=== PATIENT | female | born 1950 | race Two or more races ===

== ENCOUNTER 2024-03-01 17:27 | Inpatient (IN) ==
--- NOTE | 2024-03-01 17:32 | ED Triage Note ---
Date of Service March 01, 2024 Provider in Triage Author: Cristina Murphy History of Present Illness This patient was briefly evaluated while in triage. An abbreviated physical exam was performed. This patient is a 74-year-old Female who presents to the ED for evaluation of vomiting, unable to keep down food or fluids, reports nausea x few days. Pt denies chest pain, shob, fever, abdominal pain. Currently receiving chemotherapy for leukemia. Physical Exam Initial orders for labs and / or imaging were placed and patient was placed in the waiting area until a bed is available. Please see further documentation for the full ED course.
--- NOTE | 2024-03-01 19:36 | Emergency Department Note ---
Impression & Plan Acute renal failure, Vomiting, Acute dehydration, Acute hyperkalemia ED Provider Note NAME: ANGELIKA REES AGE: 74 SEX: Female INFORMANT: Patient ED PROVIDER(S): Gary Small MD CHIEF COMPLAINT: Vomiting PLAN: Disposition: Admitted Outpatient prescription management: none Referral: None MEDICAL DECISION MAKING: Patient presented due to vomiting for several days. Clinically she looks dehydrated. She had an IV established. Fluids were ordered. She was given IV Zofran she. She required a second dose of IV Zofran. After her fluid bolus she was started on normal saline 125 mL an hour an hour. Patient had CT imaging done and there was no acute process noted. ECG showed a sinus rhythm with LVH. No hyperacute T waves. Her CBC was unremarkable. Her chemistry panel revealed a significant elevation of creatinine, elevation of her potassium, and low bicarb. These labs were rechecked to reconfirm. I was notified that her repeat potassium was 7 and creatinine was over 12. Bicarb very low as well. Patient was given IV calcium, insulin, and glucose. IV bicarbonate given. Consulted with nephrology, Dr. Singh. She recommended initiation of a bicarb drip at 125 mL an hour. This was ordered. She asked for a total CK to be added and this was done. She also asked for the patient to be admitted to the ICU. She recommended every 2 hour chemistry panel and would like to be notified at 6 AM to see the progress of the treatment and assess the need for possible dialysis. I did consult with Bishnu from the ICU. Discussed case and diagnostics. Also discussed nephrology's consultation. Consultation was made with the [facility] service, . Case discussed and diagnostics were reviewed. Patient will be admitted for further management. Care/management discussed with: capacity manager Level of care consideration(s): After review of the information above and other included data, I feel the patient requires escalation of care to admission Triage Nursing notes: reviewed and agree them. Vital Signs: reviewed and remarkable for no significant abnormalities Additional History obtained from: none Chronic Medical/Social Conditions affecting care: Lymphoma Prior/ Outside/ External records reviewed: none Differential Diagnosis: Infection, dehydration, metabolic abnormality, hypo/hyperglycemia, electrolyte disturbance, anemia, hypoxia, cardiac sources, intracerebral event, toxicologic, neurologic, as well as other pathologies. Diagnostics, independently interpreted by me: ECG: Twelve-lead ECG reveals normal sinus rhythm 94 bpm. LVH. No hyperacute T waves. No ST elevation. Cardiac Monitoring: Cardiac monitoring ordered by me: The patient was placed on continuous cardiac monitoring and observed. It revealed a normal sinus rhythm at 96 beats per minute without ectopy or evidence of dysrhythmia. Medical decision rules: none Imaging studies: I refer you to the EMR for further details. HPI: 74 year old Female arrives for evaluation of vomiting. This started 2 to 3 days ago and is persisting. Patient is in between treatments for leukemia. The patient also notes the following associated symptoms, nausea, decreased appetite. The patient has taken no medication for relieving factors. Current pain is rated as 0/10. Patient denies any abdominal pain. She is concerned about dehydration. Pt denies LOC, headache, fevers, chills, diaphoresis, visual changes, neck pain, chest pain, breathing difficulties, abdominal pain, back pain, melena, hematochezia, urinary symptoms, numbness, weakness, lymphadenopathy, rash, or other complaints. . PAST MEDICAL HISTORY: See Below, leukemia PAST SURGICAL HISTORY: See Below, SOCIAL HISTORY: See Below, non-smoker HOME MEDICATIONS: See Below ALLERGIES: See Below VITALS: See Below PHYSICAL EXAMINATION: GENERAL: Awake, alert, well-appearing, in no distress HENT: Normocephalic, atraumatic. Oropharynx with dry mucous. EYES: Normal conjunctiva. Sclera non-icteric. NECK: Inspection normal. Non-tender. Supple. No nuchal rigidity. FROM. No masses. RESPIRATORY: Clear to auscultation. No wheezes. No rales. Normal respiratory effort. CARDIAC: Borderline tachycardic rate. Normal rhythm. No murmurs. No rubs. Extremities warm and well perfused. Pulses equal. No JVD. GI: Soft, non-distended. No tenderness to palpation. No rebound or guarding. No masses. RECTAL: Deferred. MUSCULOSKELETAL: Atraumatic. Chest examination reveals no tenderness. The back is symmetrical on inspection without obvious abnormality. There is no CVA tenderness to palpation. No joint edema. LOWER EXTREMITIES: Calves are equal size bilaterally and non-tender. No edema. No discoloration. NEURO: Normal sensorium. No sensory or motor deficits noted. SKIN: No rash or jaundice noted. PROCEDURES: none CRITICAL CARE: I have personally spent 40 minutes of critical care time in the direct management of this patient. This includes bedside care, interpretation of diagnostic studies, and testing, discussion with consultants, patient, and other required patient management activities. These minutes are in excess of all separately billable procedures. OBSERVATION NOTE: none Past Med/Surg History Medical History Leukemia High blood pressure Breast cancer Esophageal hernia Kidney failure History of fractured vertebra Surgical History H/O shoulder surgery History of left mastectomy Family History (Updated 12/19/23 @ 09:40 by Zacarias Beltran PA-C) Other No pertinent family history Social History Smoking Status: Never smoker Preferred Language: Uzbek current occupational status: retired Feels Safe at Home: Yes Allergies Allergies Allergy/AdvReac Type Severity Reaction Status Date / Time ampicillin Allergy Intermediate Rash Verified 03/01/24 20:08 codeine Allergy Intermediate Rash Verified 03/01/24 20:08 Iodinated Contrast Media Allergy Intermediate ITCHY RASH Verified 03/01/24 20:08 Penicillins Allergy Intermediate SWELLING Verified 03/01/24 20:08 red dye Allergy Intermediate Hives Verified 03/01/24 20:08 Home Meds Home Medications Medication Instructions Recorded Confirmed labetalol 100 mg tablet 100 mg PO BID 09/09/23 03/01/24 amlodipine 10 mg tablet 10 mg PO QAM 12/19/23 03/01/24 cholecalciferol (vitamin D3) 25 25 mcg PO DAILY 03/01/24 03/01/24 mcg (1,000 unit) capsule (Vitamin D3) fluticasone propionate 50 2 spray intranasal DAILY 03/01/24 03/01/24 mcg/actuation nasal spray,suspension loratadine 10 mg tablet (Claritin) 10 mg PO HS 03/01/24 03/01/24 Results & Data (ED) Vital Signs Vital Signs - 24 hr 03/01/24 17:32 03/01/24 19:19 03/01/24 19:20 Temperature 36.9 C Temperature Source Temporal Artery Scan Pulse Rate 93 H 93 H 96 H Pulse Rate [Apical] Pulse Rate from SpO2 Sensor 94 H Respiratory Rate 20 24 16 Respiratory Effort / Characteristics Non-Labored Spontaneous Respiratory Depth Normal Blood Pressure 195/108 H Blood Pressure [Right Arm] Blood Pressure Mean 137 Blood Pressure Mean [Right Arm] Pulse Oximetry 97 98 Oxygen Delivery Method Room Air Sepsis Recent Fever Within 48 Hours No Sepsis New/Unexplained Change in Mental Status N/A Sepsis Action Taken by Nursing No Action Required 03/01/24 19:28 03/01/24 19:30 03/01/24 19:40 Temperature Temperature Source Pulse Rate 93 H 92 H Pulse Rate [Apical] 99 H Pulse Rate from SpO2 Sensor Respiratory Rate 16 16 16 Respiratory Effort / Characteristics Non-Labored Respiratory Depth Normal Blood Pressure Blood Pressure [Right Arm] 166/78 H Blood Pressure Mean Blood Pressure Mean [Right Arm] 107 Pulse Oximetry 98 Oxygen Delivery Method Sepsis Recent Fever Within 48 Hours Sepsis New/Unexplained Change in Mental Status Sepsis Action Taken by Nursing 03/01/24 19:50 03/01/24 20:00 03/01/24 20:00 Temperature Temperature Source Pulse Rate 93 H 92 H Pulse Rate [Apical] Pulse Rate from SpO2 Sensor 90 Respiratory Rate 18 20 Respiratory Effort / Characteristics Respiratory Depth Blood Pressure Blood Pressure [Right Arm] Blood Pressure Mean Blood Pressure Mean [Right Arm] Pulse Oximetry 98 100 Oxygen Delivery Method Room Air Sepsis Recent Fever Within 48 Hours Sepsis New/Unexplained Change in Mental Status Sepsis Action Taken by Nursing 03/01/24 20:10 03/01/24 20:14 03/01/24 20:14 Temperature Temperature Source Pulse Rate 95 H 92 H Pulse Rate [Apical] Pulse Rate from SpO2 Sensor 95 H 93 H Respiratory Rate 17 23 Respiratory Effort / Characteristics Respiratory Depth Blood Pressure 165/78 H Blood Pressure [Right Arm] Blood Pressure Mean 101 Blood Pressure Mean [Right Arm] Pulse Oximetry 94 96 Oxygen Delivery Method Sepsis Recent Fever Within 48 Hours Sepsis New/Unexplained Change in Mental Status Sepsis Action Taken by Nursing 03/01/24 20:20 03/01/24 20:30 03/01/24 20:33 Temperature Temperature Source Pulse Rate 93 H 107 H 94 H Pulse Rate [Apical] Pulse Rate from SpO2 Sensor 94 H 95 H Respiratory Rate 19 22 Respiratory Effort / Characteristics Respiratory Depth Blood Pressure Blood Pressure [Right Arm] Blood Pressure Mean Blood Pressure Mean [Right Arm] Pulse Oximetry 96 97 Oxygen Delivery Method Sepsis Recent Fever Within 48 Hours Sepsis New/Unexplained Change in Mental Status Sepsis Action Taken by Nursing 03/01/24 20:40 03/01/24 20:50 03/01/24 21:00 Temperature Temperature Source Pulse Rate 97 H 98 H 97 H Pulse Rate [Apical] Pulse Rate from SpO2 Sensor 99 H 96 H Respiratory Rate 16 12 17 Respiratory Effort / Characteristics Respiratory Depth Blood Pressure Blood Pressure [Right Arm] Blood Pressure Mean Blood Pressure Mean [Right Arm] Pulse Oximetry 96 96 Oxygen Delivery Method Sepsis Recent Fever Within 48 Hours Sepsis New/Unexplained Change in Mental Status Sepsis Action Taken by Nursing 03/01/24 21:10 03/01/24 21:30 03/01/24 21:40 Temperature Temperature Source Pulse Rate 96 H 109 H 97 H Pulse Rate [Apical] Pulse Rate from SpO2 Sensor 96 H 97 H Respiratory Rate 22 16 16 Respiratory Effort / Characteristics Respiratory Depth Blood Pressure Blood Pressure [Right Arm] Blood Pressure Mean Blood Pressure Mean [Right Arm] Pulse Oximetry 94 99 Oxygen Delivery Method Sepsis Recent Fever Within 48 Hours Sepsis New/Unexplained Change in Mental Status Sepsis Action Taken by Nursing 03/01/24 21:50 03/01/24 22:00 03/01/24 23:20 Temperature Temperature Source Pulse Rate 99 H 100 H 99 H Pulse Rate [Apical] Pulse Rate from SpO2 Sensor 99 H 99 H Respiratory Rate 17 22 Respiratory Effort / Characteristics Respiratory Depth Blood Pressure Blood Pressure [Right Arm] Blood Pressure Mean Blood Pressure Mean [Right Arm] Pulse Oximetry 98 98 Oxygen Delivery Method Sepsis Recent Fever Within 48 Hours Sepsis New/Unexplained Change in Mental Status Sepsis Action Taken by Nursing 03/02/24 00:03 Temperature Temperature Source Pulse Rate Pulse Rate [Apical] 96 H Pulse Rate from SpO2 Sensor Respiratory Rate 26 H Respiratory Effort / Characteristics Respiratory Depth Blood Pressure Blood Pressure [Right Arm] 175/85 H Blood Pressure Mean Blood Pressure Mean [Right Arm] 115 Pulse Oximetry 98 Oxygen Delivery Method Room Air Sepsis Recent Fever Within 48 Hours Sepsis New/Unexplained Change in Mental Status Sepsis Action Taken by Nursing Laboratory Data 03/01/24 21:27 03/01/24 21:27 Lab Results 03/01/24 03/01/24 03/01/24 Range/Units 20:19 21:27 21:27 WBC Cancelled 9.02 RBC Cancelled Hgb Hct MCV MCH MCHC RDW Std Deviation RDW Coeff of Tosha Plt Count MPV Immature Gran % (Auto) Neut % (Auto) Lymph % (Auto) [place] % (Auto) Eos % (Auto) Baso % (Auto) Neut # (Auto) Lymph # (Auto) [place] # (Auto) Eos # (Auto) Baso # (Auto) Immature Gran # (Auto) Absolute Nucleated RBC Nucleated RBC % (auto) Neutrophils % (Manual) Band Neutrophils % Lymphocytes % (Manual) Prolymphocyte % Reactive Lymphs % (Man) Monocytes % (Manual) Eosinophils % (Manual) Basophils % (Manual) Metamyelocytes % (Man) Myelocytes % (Man) Promyelocytes % (Man) Blast Cells % (Manual) Plasma Cell % (Manual) Other Cells % Nucleated RBC % Neutrophils # (Manual) Band Neutrophils # Total Absolute Neuts Lymphocytes # (Manual) Prolymphocyte # Reactive Lymphs # Total Abs Lymphocytes Monocytes # (Manual) Eosinophils # (Manual) Basophils # (Manual) Metamyelocytes # (Man) Myelocytes # (Manual) Promyelocytes # (Man) Blast Cells # (Man) Plasma Cell # (Manual) Other Cells # Nucleated RBCs # (Man) Hypersegmented Neuts Hyposegmented Neuts Hypogranular Neuts Large Granular Lymphs # Lrg Granular Lymphs Hairy Cells Smudge Cells Toxic Granulation Toxic Vacuolation Dohle Bodies Tito Rods Platelet Estimate Hypogranular Platelets Giant Platelets Platelet Satelliting RBC Morphology Polychromasia Hypochromasia Poikilocytosis Basophilic Stippling Anisocytosis Microcytosis Macrocytosis Spherocytes Pappenheimer Bodies Sickle Cells Target Cells Tear Drop Cells Ovalocytes Stomatocytes Campuzano-Selby Bodies Echinocytes Acanthocytes (Spur) Rouleaux RBC Agglutinates Schistocytes Sezary Cell Sodium (136-145) mmol/L Potassium (3.5-5.1) mmol/L Chloride (98-107) mmol/L Carbon Dioxide (21-32) mmol/L Anion Gap (3-11) BUN (6-23) mg/dl Creatinine (0.6-1.2) mg/dl Est Cr Clr Drug Dosing ml/min Est GFR ( Amer) ml/min Est GFR (Non-Af Amer) ml/min BUN/Creatinine Ratio (10-20) Glucose (70-99(Fasting)) mg/dl Lactate (0.4-2.0) mmol/L Calcium (8.6-10.3) mg/dl Total Bilirubin (0.2-1.0) mg/dl AST (13-39) U/L ALT (7-52) U/L Alkaline Phosphatase (34-104) U/L Troponin I High Sens (0-14) pg/ml Total Protein (6.0-8.3) gm/dl Albumin (3.4-5.0) gm/dl Globulin (2.5-4.0) gm/dl Albumin/Globulin Ratio (0.9-2) Lipase (11-82) U/L Blood Parasites ID 03/01/24 03/01/24 03/01/24 Range/Units 21:27 21:27 21:27 WBC RBC 4.13 L Hgb Cancelled 9.8 L Hct Cancelled 33.8 L MCV Cancelled MCH MCHC RDW Std Deviation RDW Coeff of Tosha Plt Count MPV Immature Gran % (Auto) Neut % (Auto) Lymph % (Auto) [place] % (Auto) Eos % (Auto) Baso % (Auto) Neut # (Auto) Lymph # (Auto) [place] # (Auto) Eos # (Auto) Baso # (Auto) Immature Gran # (Auto) Absolute Nucleated RBC Nucleated RBC % (auto) Neutrophils % (Manual) Band Neutrophils % Lymphocytes % (Manual) Prolymphocyte % Reactive Lymphs % (Man) Monocytes % (Manual) Eosinophils % (Manual) Basophils % (Manual) Metamyelocytes % (Man) Myelocytes % (Man) Promyelocytes % (Man) Blast Cells % (Manual) Plasma Cell % (Manual) Other Cells % Nucleated RBC % Neutrophils # (Manual) Band Neutrophils # Total Absolute Neuts Lymphocytes # (Manual) Prolymphocyte # Reactive Lymphs # Total Abs Lymphocytes Monocytes # (Manual) Eosinophils # (Manual) Basophils # (Manual) Metamyelocytes # (Man) Myelocytes # (Manual) Promyelocytes # (Man) Blast Cells # (Man) Plasma Cell # (Manual) Other Cells # Nucleated RBCs # (Man) Hypersegmented Neuts Hyposegmented Neuts Hypogranular Neuts Large Granular Lymphs # Lrg Granular Lymphs Hairy Cells Smudge Cells Toxic Granulation Toxic Vacuolation Dohle Bodies Tito Rods Platelet Estimate Hypogranular Platelets Giant Platelets Platelet Satelliting RBC Morphology Polychromasia Hypochromasia Poikilocytosis Basophilic Stippling Anisocytosis Microcytosis Macrocytosis Spherocytes Pappenheimer Bodies Sickle Cells Target Cells Tear Drop Cells Ovalocytes Stomatocytes Campuzano-Selby Bodies Echinocytes Acanthocytes (Spur) Rouleaux RBC Agglutinates Schistocytes Sezary Cell Sodium (136-145) mmol/L Potassium (3.5-5.1) mmol/L Chloride (98-107) mmol/L Carbon Dioxide (21-32) mmol/L Anion Gap (3-11) BUN (6-23) mg/dl Creatinine (0.6-1.2) mg/dl Est Cr Clr Drug Dosing ml/min Est GFR ( Amer) ml/min Est GFR (Non-Af Amer) ml/min BUN/Creatinine Ratio (10-20) Glucose (70-99(Fasting)) mg/dl Lactate (0.4-2.0) mmol/L Calcium (8.6-10.3) mg/dl Total Bilirubin (0.2-1.0) mg/dl AST (13-39) U/L ALT (7-52) U/L Alkaline Phosphatase (34-104) U/L Troponin I High Sens (0-14) pg/ml Total Protein (6.0-8.3) gm/dl Albumin (3.4-5.0) gm/dl Globulin (2.5-4.0) gm/dl Albumin/Globulin Ratio (0.9-2) Lipase (11-82) U/L Blood Parasites ID 03/01/24 03/01/24 03/01/24 Range/Units 21:27 21:27 21:27 WBC RBC Hgb Hct MCV 81.8 MCH Cancelled 23.7 L MCHC Cancelled 29.0 L RDW Std Deviation Cancelled RDW Coeff of Tosha Plt Count MPV Immature Gran % (Auto) Neut % (Auto) Lymph % (Auto) [place] % (Auto) Eos % (Auto) Baso % (Auto) Neut # (Auto) Lymph # (Auto) [place] # (Auto) Eos # (Auto) Baso # (Auto) Immature Gran # (Auto) Absolute Nucleated RBC Nucleated RBC % (auto) Neutrophils % (Manual) Band Neutrophils % Lymphocytes % (Manual) Prolymphocyte % Reactive Lymphs % (Man) Monocytes % (Manual) Eosinophils % (Manual) Basophils % (Manual) Metamyelocytes % (Man) Myelocytes % (Man) Promyelocytes % (Man) Blast Cells % (Manual) Plasma Cell % (Manual) Other Cells % Nucleated RBC % Neutrophils # (Manual) Band Neutrophils # Total Absolute Neuts Lymphocytes # (Manual) Prolymphocyte # Reactive Lymphs # Total Abs Lymphocytes Monocytes # (Manual) Eosinophils # (Manual) Basophils # (Manual) Metamyelocytes # (Man) Myelocytes # (Manual) Promyelocytes # (Man) Blast Cells # (Man) Plasma Cell # (Manual) Other Cells # Nucleated RBCs # (Man) Hypersegmented Neuts Hyposegmented Neuts Hypogranular Neuts Large Granular Lymphs # Lrg Granular Lymphs Hairy Cells Smudge Cells Toxic Granulation Toxic Vacuolation Dohle Bodies Tito Rods Platelet Estimate Hypogranular Platelets Giant Platelets Platelet Satelliting RBC Morphology Polychromasia Hypochromasia Poikilocytosis Basophilic Stippling Anisocytosis Microcytosis Macrocytosis Spherocytes Pappenheimer Bodies Sickle Cells Target Cells Tear Drop Cells Ovalocytes Stomatocytes Campuzano-Selby Bodies Echinocytes Acanthocytes (Spur) Rouleaux RBC Agglutinates Schistocytes Sezary Cell Sodium (136-145) mmol/L Potassium (3.5-5.1) mmol/L Chloride (98-107) mmol/L Carbon Dioxide (21-32) mmol/L Anion Gap (3-11) BUN (6-23) mg/dl Creatinine (0.6-1.2) mg/dl Est Cr Clr Drug Dosing ml/min Est GFR ( Amer) ml/min Est GFR (Non-Af Amer) ml/min BUN/Creatinine Ratio (10-20) Glucose (70-99(Fasting)) mg/dl Lactate (0.4-2.0) mmol/L Calcium (8.6-10.3) mg/dl Total Bilirubin (0.2-1.0) mg/dl AST (13-39) U/L ALT (7-52) U/L Alkaline Phosphatase (34-104) U/L Troponin I High Sens (0-14) pg/ml Total Protein (6.0-8.3) gm/dl Albumin (3.4-5.0) gm/dl Globulin (2.5-4.0) gm/dl Albumin/Globulin Ratio (0.9-2) Lipase (11-82) U/L Blood Parasites ID 03/01/24 03/01/24 03/01/24 Range/Units 21:27 21:27 21:27 WBC RBC Hgb Hct MCV MCH MCHC RDW Std Deviation 70.2 H RDW Coeff of Tosha Cancelled 24.0 H Plt Count Cancelled 193 MPV Cancelled Immature Gran % (Auto) Cancelled Neut % (Auto) Lymph % (Auto) [place] % (Auto) Eos % (Auto) Baso % (Auto) Neut # (Auto) Lymph # (Auto) [place] # (Auto) Eos # (Auto) Baso # (Auto) Immature Gran # (Auto) Absolute Nucleated RBC Nucleated RBC % (auto) Neutrophils % (Manual) Band Neutrophils % Lymphocytes % (Manual) Prolymphocyte % Reactive Lymphs % (Man) Monocytes % (Manual) Eosinophils % (Manual) Basophils % (Manual) Metamyelocytes % (Man) Myelocytes % (Man) Promyelocytes % (Man) Blast Cells % (Manual) Plasma Cell % (Manual) Other Cells % Nucleated RBC % Neutrophils # (Manual) Band Neutrophils # Total Absolute Neuts Lymphocytes # (Manual) Prolymphocyte # Reactive Lymphs # Total Abs Lymphocytes Monocytes # (Manual) Eosinophils # (Manual) Basophils # (Manual) Metamyelocytes # (Man) Myelocytes # (Manual) Promyelocytes # (Man) Blast Cells # (Man) Plasma Cell # (Manual) Other Cells # Nucleated RBCs # (Man) Hypersegmented Neuts Hyposegmented Neuts Hypogranular Neuts Large Granular Lymphs # Lrg Granular Lymphs Hairy Cells Smudge Cells Toxic Granulation Toxic Vacuolation Dohle Bodies Tito Rods Platelet Estimate Hypogranular Platelets Giant Platelets Platelet Satelliting RBC Morphology Polychromasia Hypochromasia Poikilocytosis Basophilic Stippling Anisocytosis Microcytosis Macrocytosis Spherocytes Pappenheimer Bodies Sickle Cells Target Cells Tear Drop Cells Ovalocytes Stomatocytes Campuzano-Selby Bodies Echinocytes Acanthocytes (Spur) Rouleaux RBC Agglutinates Schistocytes Sezary Cell Sodium (136-145) mmol/L Potassium (3.5-5.1) mmol/L Chloride (98-107) mmol/L Carbon Dioxide (21-32) mmol/L Anion Gap (3-11) BUN (6-23) mg/dl Creatinine (0.6-1.2) mg/dl Est Cr Clr Drug Dosing ml/min Est GFR ( Amer) ml/min Est GFR (Non-Af Amer) ml/min BUN/Creatinine Ratio (10-20) Glucose (70-99(Fasting)) mg/dl Lactate (0.4-2.0) mmol/L Calcium (8.6-10.3) mg/dl Total Bilirubin (0.2-1.0) mg/dl AST (13-39) U/L ALT (7-52) U/L Alkaline Phosphatase (34-104) U/L Troponin I High Sens (0-14) pg/ml Total Protein (6.0-8.3) gm/dl Albumin (3.4-5.0) gm/dl Globulin (2.5-4.0) gm/dl Albumin/Globulin Ratio (0.9-2) Lipase (11-82) U/L Blood Parasites ID 03/01/24 03/01/24 03/01/24 Range/Units 21:27 21:27 21:27 WBC RBC Hgb Hct MCV MCH MCHC RDW Std Deviation RDW Coeff of Tosha Plt Count MPV Immature Gran % (Auto) 4.7 Neut % (Auto) Cancelled 69.5 Lymph % (Auto) Cancelled 11.5 [place] % (Auto) Cancelled Eos % (Auto) Baso % (Auto) Neut # (Auto) Lymph # (Auto) [place] # (Auto) Eos # (Auto) Baso # (Auto) Immature Gran # (Auto) Absolute Nucleated RBC Nucleated RBC % (auto) Neutrophils % (Manual) Band Neutrophils % Lymphocytes % (Manual) Prolymphocyte % Reactive Lymphs % (Man) Monocytes % (Manual) Eosinophils % (Manual) Basophils % (Manual) Metamyelocytes % (Man) Myelocytes % (Man) Promyelocytes % (Man) Blast Cells % (Manual) Plasma Cell % (Manual) Other Cells % Nucleated RBC % Neutrophils # (Manual) Band Neutrophils # Total Absolute Neuts Lymphocytes # (Manual) Prolymphocyte # Reactive Lymphs # Total Abs Lymphocytes Monocytes # (Manual) Eosinophils # (Manual) Basophils # (Manual) Metamyelocytes # (Man) Myelocytes # (Manual) Promyelocytes # (Man) Blast Cells # (Man) Plasma Cell # (Manual) Other Cells # Nucleated RBCs # (Man) Hypersegmented Neuts Hyposegmented Neuts Hypogranular Neuts Large Granular Lymphs # Lrg Granular Lymphs Hairy Cells Smudge Cells Toxic Granulation Toxic Vacuolation Dohle Bodies Tito Rods Platelet Estimate Hypogranular Platelets Giant Platelets Platelet Satelliting RBC Morphology Polychromasia Hypochromasia Poikilocytosis Basophilic Stippling Anisocytosis Microcytosis Macrocytosis Spherocytes Pappenheimer Bodies Sickle Cells Target Cells Tear Drop Cells Ovalocytes Stomatocytes Campuzano-Selby Bodies Echinocytes Acanthocytes (Spur) Rouleaux RBC Agglutinates Schistocytes Sezary Cell Sodium (136-145) mmol/L Potassium (3.5-5.1) mmol/L Chloride (98-107) mmol/L Carbon Dioxide (21-32) mmol/L Anion Gap (3-11) BUN (6-23) mg/dl Creatinine (0.6-1.2) mg/dl Est Cr Clr Drug Dosing ml/min Est GFR ( Amer) ml/min Est GFR (Non-Af Amer) ml/min BUN/Creatinine Ratio (10-20) Glucose (70-99(Fasting)) mg/dl Lactate (0.4-2.0) mmol/L Calcium (8.6-10.3) mg/dl Total Bilirubin (0.2-1.0) mg/dl AST (13-39) U/L ALT (7-52) U/L Alkaline Phosphatase (34-104) U/L Troponin I High Sens (0-14) pg/ml Total Protein (6.0-8.3) gm/dl Albumin (3.4-5.0) gm/dl Globulin (2.5-4.0) gm/dl Albumin/Globulin Ratio (0.9-2) Lipase (11-82) U/L Blood Parasites ID 03/01/24 03/01/24 03/01/24 Range/Units 21:27 21:27 21:27 WBC RBC Hgb Hct MCV MCH MCHC RDW Std Deviation RDW Coeff of Tosha Plt Count MPV Immature Gran % (Auto) Neut % (Auto) Lymph % (Auto) [place] % (Auto) 13.1 Eos % (Auto) Cancelled 0.6 Baso % (Auto) Cancelled 0.6 Neut # (Auto) Cancelled Lymph # (Auto) [place] # (Auto) Eos # (Auto) Baso # (Auto) Immature Gran # (Auto) Absolute Nucleated RBC Nucleated RBC % (auto) Neutrophils % (Manual) Band Neutrophils % Lymphocytes % (Manual) Prolymphocyte % Reactive Lymphs % (Man) Monocytes % (Manual) Eosinophils % (Manual) Basophils % (Manual) Metamyelocytes % (Man) Myelocytes % (Man) Promyelocytes % (Man) Blast Cells % (Manual) Plasma Cell % (Manual) Other Cells % Nucleated RBC % Neutrophils # (Manual) Band Neutrophils # Total Absolute Neuts Lymphocytes # (Manual) Prolymphocyte # Reactive Lymphs # Total Abs Lymphocytes Monocytes # (Manual) Eosinophils # (Manual) Basophils # (Manual) Metamyelocytes # (Man) Myelocytes # (Manual) Promyelocytes # (Man) Blast Cells # (Man) Plasma Cell # (Manual) Other Cells # Nucleated RBCs # (Man) Hypersegmented Neuts Hyposegmented Neuts Hypogranular Neuts Large Granular Lymphs # Lrg Granular Lymphs Hairy Cells Smudge Cells Toxic Granulation Toxic Vacuolation Dohle Bodies Tito Rods Platelet Estimate Hypogranular Platelets Giant Platelets Platelet Satelliting RBC Morphology Polychromasia Hypochromasia Poikilocytosis Basophilic Stippling Anisocytosis Microcytosis Macrocytosis Spherocytes Pappenheimer Bodies Sickle Cells Target Cells Tear Drop Cells Ovalocytes Stomatocytes Campuzano-Selby Bodies Echinocytes Acanthocytes (Spur) Rouleaux RBC Agglutinates Schistocytes Sezary Cell Sodium (136-145) mmol/L Potassium (3.5-5.1) mmol/L Chloride (98-107) mmol/L Carbon Dioxide (21-32) mmol/L Anion Gap (3-11) BUN (6-23) mg/dl Creatinine (0.6-1.2) mg/dl Est Cr Clr Drug Dosing ml/min Est GFR ( Amer) ml/min Est GFR (Non-Af Amer) ml/min BUN/Creatinine Ratio (10-20) Glucose (70-99(Fasting)) mg/dl Lactate (0.4-2.0) mmol/L Calcium (8.6-10.3) mg/dl Total Bilirubin (0.2-1.0) mg/dl AST (13-39) U/L ALT (7-52) U/L Alkaline Phosphatase (34-104) U/L Troponin I High Sens (0-14) pg/ml Total Protein (6.0-8.3) gm/dl Albumin (3.4-5.0) gm/dl Globulin (2.5-4.0) gm/dl Albumin/Globulin Ratio (0.9-2) Lipase (11-82) U/L Blood Parasites ID 03/01/24 03/01/24 03/01/24 Range/Units 21:27 21:27 21:27 WBC RBC Hgb Hct MCV MCH MCHC RDW Std Deviation RDW Coeff of Tosha Plt Count MPV Immature Gran % (Auto) Neut % (Auto) Lymph % (Auto) [place] % (Auto) Eos % (Auto) Baso % (Auto) Neut # (Auto) 6.28 Lymph # (Auto) Cancelled 1.04 L [place] # (Auto) Cancelled 1.18 H Eos # (Auto) Cancelled Baso # (Auto) Immature Gran # (Auto) Absolute Nucleated RBC Nucleated RBC % (auto) Neutrophils % (Manual) Band Neutrophils % Lymphocytes % (Manual) Prolymphocyte % Reactive Lymphs % (Man) Monocytes % (Manual) Eosinophils % (Manual) Basophils % (Manual) Metamyelocytes % (Man) Myelocytes % (Man) Promyelocytes % (Man) Blast Cells % (Manual) Plasma Cell % (Manual) Other Cells % Nucleated RBC % Neutrophils # (Manual) Band Neutrophils # Total Absolute Neuts Lymphocytes # (Manual) Prolymphocyte # Reactive Lymphs # Total Abs Lymphocytes Monocytes # (Manual) Eosinophils # (Manual) Basophils # (Manual) Metamyelocytes # (Man) Myelocytes # (Manual) Promyelocytes # (Man) Blast Cells # (Man) Plasma Cell # (Manual) Other Cells # Nucleated RBCs # (Man) Hypersegmented Neuts Hyposegmented Neuts Hypogranular Neuts Large Granular Lymphs # Lrg Granular Lymphs Hairy Cells Smudge Cells Toxic Granulation Toxic Vacuolation Dohle Bodies Tito Rods Platelet Estimate Hypogranular Platelets Giant Platelets Platelet Satelliting RBC Morphology Polychromasia Hypochromasia Poikilocytosis Basophilic Stippling Anisocytosis Microcytosis Macrocytosis Spherocytes Pappenheimer Bodies Sickle Cells Target Cells Tear Drop Cells Ovalocytes Stomatocytes Campuzano-Selby Bodies Echinocytes Acanthocytes (Spur) Rouleaux RBC Agglutinates Schistocytes Sezary Cell Sodium (136-145) mmol/L Potassium (3.5-5.1) mmol/L Chloride (98-107) mmol/L Carbon Dioxide (21-32) mmol/L Anion Gap (3-11) BUN (6-23) mg/dl Creatinine (0.6-1.2) mg/dl Est Cr Clr Drug Dosing ml/min Est GFR ( Amer) ml/min Est GFR (Non-Af Amer) ml/min BUN/Creatinine Ratio (10-20) Glucose (70-99(Fasting)) mg/dl Lactate (0.4-2.0) mmol/L Calcium (8.6-10.3) mg/dl Total Bilirubin (0.2-1.0) mg/dl AST (13-39) U/L ALT (7-52) U/L Alkaline Phosphatase (34-104) U/L Troponin I High Sens (0-14) pg/ml Total Protein (6.0-8.3) gm/dl Albumin (3.4-5.0) gm/dl Globulin (2.5-4.0) gm/dl Albumin/Globulin Ratio (0.9-2) Lipase (11-82) U/L Blood Parasites ID 03/01/24 03/01/24 03/01/24 Range/Units 21:27 21:27 21:27 WBC RBC Hgb Hct MCV MCH MCHC RDW Std Deviation RDW Coeff of Tosha Plt Count MPV Immature Gran % (Auto) Neut % (Auto) Lymph % (Auto) [place] % (Auto) Eos % (Auto) Baso % (Auto) Neut # (Auto) Lymph # (Auto) [place] # (Auto) Eos # (Auto) 0.05 Baso # (Auto) Cancelled 0.05 Immature Gran # (Auto) Cancelled 0.42 H Absolute Nucleated RBC Cancelled Nucleated RBC % (auto) Neutrophils % (Manual) Band Neutrophils % Lymphocytes % (Manual) Prolymphocyte % Reactive Lymphs % (Man) Monocytes % (Manual) Eosinophils % (Manual) Basophils % (Manual) Metamyelocytes % (Man) Myelocytes % (Man) Promyelocytes % (Man) Blast Cells % (Manual) Plasma Cell % (Manual) Other Cells % Nucleated RBC % Neutrophils # (Manual) Band Neutrophils # Total Absolute Neuts Lymphocytes # (Manual) Prolymphocyte # Reactive Lymphs # Total Abs Lymphocytes Monocytes # (Manual) Eosinophils # (Manual) Basophils # (Manual) Metamyelocytes # (Man) Myelocytes # (Manual) Promyelocytes # (Man) Blast Cells # (Man) Plasma Cell # (Manual) Other Cells # Nucleated RBCs # (Man) Hypersegmented Neuts Hyposegmented Neuts Hypogranular Neuts Large Granular Lymphs # Lrg Granular Lymphs Hairy Cells Smudge Cells Toxic Granulation Toxic Vacuolation Dohle Bodies Tito Rods Platelet Estimate Hypogranular Platelets Giant Platelets Platelet Satelliting RBC Morphology Polychromasia Hypochromasia Poikilocytosis Basophilic Stippling Anisocytosis Microcytosis Macrocytosis Spherocytes Pappenheimer Bodies Sickle Cells Target Cells Tear Drop Cells Ovalocytes Stomatocytes Campuzano-Selby Bodies Echinocytes Acanthocytes (Spur) Rouleaux RBC Agglutinates Schistocytes Sezary Cell Sodium (136-145) mmol/L Potassium (3.5-5.1) mmol/L Chloride (98-107) mmol/L Carbon Dioxide (21-32) mmol/L Anion Gap (3-11) BUN (6-23) mg/dl Creatinine (0.6-1.2) mg/dl Est Cr Clr Drug Dosing ml/min Est GFR ( Amer) ml/min Est GFR (Non-Af Amer) ml/min BUN/Creatinine Ratio (10-20) Glucose (70-99(Fasting)) mg/dl Lactate (0.4-2.0) mmol/L Calcium (8.6-10.3) mg/dl Total Bilirubin (0.2-1.0) mg/dl AST (13-39) U/L ALT (7-52) U/L Alkaline Phosphatase (34-104) U/L Troponin I High Sens (0-14) pg/ml Total Protein (6.0-8.3) gm/dl Albumin (3.4-5.0) gm/dl Globulin (2.5-4.0) gm/dl Albumin/Globulin Ratio (0.9-2) Lipase (11-82) U/L Blood Parasites ID 03/01/24 03/01/24 03/01/24 Range/Units 21:27 21:27 21:27 WBC RBC Hgb Hct MCV MCH MCHC RDW Std Deviation RDW Coeff of Tosha Plt Count MPV Immature Gran % (Auto) Neut % (Auto) Lymph % (Auto) [place] % (Auto) Eos % (Auto) Baso % (Auto) Neut # (Auto) Lymph # (Auto) [place] # (Auto) Eos # (Auto) Baso # (Auto) Immature Gran # (Auto) Absolute Nucleated RBC 0.03 Nucleated RBC % (auto) Cancelled 0.3 Neutrophils % (Manual) Cancelled Band Neutrophils % Cancelled Lymphocytes % (Manual) Cancelled Prolymphocyte % Cancelled Reactive Lymphs % (Man) Cancelled Monocytes % (Manual) Cancelled Eosinophils % (Manual) Cancelled Basophils % (Manual) Cancelled Metamyelocytes % (Man) Cancelled Myelocytes % (Man) Cancelled Promyelocytes % (Man) Cancelled Blast Cells % (Manual) Cancelled Plasma Cell % (Manual) Cancelled Other Cells % Cancelled Nucleated RBC % Cancelled Neutrophils # (Manual) Cancelled Band Neutrophils # Cancelled Total Absolute Neuts Cancelled Lymphocytes # (Manual) Cancelled Prolymphocyte # Cancelled Reactive Lymphs # Cancelled Total Abs Lymphocytes Cancelled Monocytes # (Manual) Cancelled Eosinophils # (Manual) Cancelled Basophils # (Manual) Cancelled Metamyelocytes # (Man) Cancelled Myelocytes # (Manual) Cancelled Promyelocytes # (Man) Cancelled Blast Cells # (Man) Cancelled Plasma Cell # (Manual) Cancelled Other Cells # Cancelled Nucleated RBCs # (Man) Cancelled Hypersegmented Neuts Cancelled Hyposegmented Neuts Cancelled Hypogranular Neuts Cancelled Large Granular Lymphs Cancelled # Lrg Granular Lymphs Cancelled Hairy Cells Cancelled Smudge Cells Cancelled Toxic Granulation Cancelled Toxic Vacuolation Cancelled Dohle Bodies Cancelled Tito Rods Cancelled Platelet Estimate Cancelled Hypogranular Platelets Cancelled Giant Platelets Cancelled Platelet Satelliting Cancelled RBC Morphology Cancelled Polychromasia Cancelled Hypochromasia Cancelled Poikilocytosis Cancelled Basophilic Stippling Cancelled Anisocytosis Cancelled Present Microcytosis Cancelled Macrocytosis Cancelled Spherocytes Cancelled Pappenheimer Bodies Cancelled Sickle Cells Cancelled Target Cells Cancelled Tear Drop Cells Cancelled Ovalocytes Stomatocytes Campuzano-Selby Bodies Echinocytes Acanthocytes (Spur) Rouleaux RBC Agglutinates Schistocytes Sezary Cell Sodium (136-145) mmol/L Potassium (3.5-5.1) mmol/L Chloride (98-107) mmol/L Carbon Dioxide (21-32) mmol/L Anion Gap (3-11) BUN (6-23) mg/dl Creatinine (0.6-1.2) mg/dl Est Cr Clr Drug Dosing ml/min Est GFR ( Amer) ml/min Est GFR (Non-Af Amer) ml/min BUN/Creatinine Ratio (10-20) Glucose (70-99(Fasting)) mg/dl Lactate (0.4-2.0) mmol/L Calcium (8.6-10.3) mg/dl Total Bilirubin (0.2-1.0) mg/dl AST (13-39) U/L ALT (7-52) U/L Alkaline Phosphatase (34-104) U/L Troponin I High Sens (0-14) pg/ml Total Protein (6.0-8.3) gm/dl Albumin (3.4-5.0) gm/dl Globulin (2.5-4.0) gm/dl Albumin/Globulin Ratio (0.9-2) Lipase (11-82) U/L Blood Parasites ID 03/01/24 03/01/24 03/01/24 Range/Units 21:27 21:27 21:27 WBC RBC Hgb Hct MCV MCH MCHC RDW Std Deviation RDW Coeff of Tosha Plt Count MPV Immature Gran % (Auto) Neut % (Auto) Lymph % (Auto) [place] % (Auto) Eos % (Auto) Baso % (Auto) Neut # (Auto) Lymph # (Auto) [place] # (Auto) Eos # (Auto) Baso # (Auto) Immature Gran # (Auto) Absolute Nucleated RBC Nucleated RBC % (auto) Neutrophils % (Manual) Band Neutrophils % Lymphocytes % (Manual) Prolymphocyte % Reactive Lymphs % (Man) Monocytes % (Manual) Eosinophils % (Manual) Basophils % (Manual) Metamyelocytes % (Man) Myelocytes % (Man) Promyelocytes % (Man) Blast Cells % (Manual) Plasma Cell % (Manual) Other Cells % Nucleated RBC % Neutrophils # (Manual) Band Neutrophils # Total Absolute Neuts Lymphocytes # (Manual) Prolymphocyte # Reactive Lymphs # Total Abs Lymphocytes Monocytes # (Manual) Eosinophils # (Manual) Basophils # (Manual) Metamyelocytes # (Man) Myelocytes # (Manual) Promyelocytes # (Man) Blast Cells # (Man) Plasma Cell # (Manual) Other Cells # Nucleated RBCs # (Man) Hypersegmented Neuts Hyposegmented Neuts Hypogranular Neuts Large Granular Lymphs # Lrg Granular Lymphs Hairy Cells Smudge Cells Toxic Granulation Toxic Vacuolation Dohle Bodies Tito Rods Platelet Estimate Hypogranular Platelets Giant Platelets Platelet Satelliting RBC Morphology Polychromasia Hypochromasia Poikilocytosis Basophilic Stippling Anisocytosis Microcytosis Macrocytosis Spherocytes Pappenheimer Bodies Sickle Cells Target Cells Tear Drop Cells 1+ Ovalocytes Cancelled 1+ Stomatocytes Cancelled Campuzano-Selby Bodies Cancelled Echinocytes Cancelled 1+ Acanthocytes (Spur) Cancelled Rouleaux RBC Agglutinates Schistocytes Sezary Cell Sodium (136-145) mmol/L Potassium (3.5-5.1) mmol/L Chloride (98-107) mmol/L Carbon Dioxide (21-32) mmol/L Anion Gap (3-11) BUN (6-23) mg/dl Creatinine (0.6-1.2) mg/dl Est Cr Clr Drug Dosing ml/min Est GFR ( Amer) ml/min Est GFR (Non-Af Amer) ml/min BUN/Creatinine Ratio (10-20) Glucose (70-99(Fasting)) mg/dl Lactate (0.4-2.0) mmol/L Calcium (8.6-10.3) mg/dl Total Bilirubin (0.2-1.0) mg/dl AST (13-39) U/L ALT (7-52) U/L Alkaline Phosphatase (34-104) U/L Troponin I High Sens (0-14) pg/ml Total Protein (6.0-8.3) gm/dl Albumin (3.4-5.0) gm/dl Globulin (2.5-4.0) gm/dl Albumin/Globulin Ratio (0.9-2) Lipase (11-82) U/L Blood Parasites ID 03/01/24 Range/Units 21:27 WBC RBC Hgb Hct MCV MCH MCHC RDW Std Deviation RDW Coeff of Tosha Plt Count MPV Immature Gran % (Auto) Neut % (Auto) Lymph % (Auto) [place] % (Auto) Eos % (Auto) Baso % (Auto) Neut # (Auto) Lymph # (Auto) [place] # (Auto) Eos # (Auto) Baso # (Auto) Immature Gran # (Auto) Absolute Nucleated RBC Nucleated RBC % (auto) Neutrophils % (Manual) Band Neutrophils % Lymphocytes % (Manual) Prolymphocyte % Reactive Lymphs % (Man) Monocytes % (Manual) Eosinophils % (Manual) Basophils % (Manual) Metamyelocytes % (Man) Myelocytes % (Man) Promyelocytes % (Man) Blast Cells % (Manual) Plasma Cell % (Manual) Other Cells % Nucleated RBC % Neutrophils # (Manual) Band Neutrophils # Total Absolute Neuts Lymphocytes # (Manual) Prolymphocyte # Reactive Lymphs # Total Abs Lymphocytes Monocytes # (Manual) Eosinophils # (Manual) Basophils # (Manual) Metamyelocytes # (Man) Myelocytes # (Manual) Promyelocytes # (Man) Blast Cells # (Man) Plasma Cell # (Manual) Other Cells # Nucleated RBCs # (Man) Hypersegmented Neuts Hyposegmented Neuts Hypogranular Neuts Large Granular Lymphs # Lrg Granular Lymphs Hairy Cells Smudge Cells Toxic Granulation Toxic Vacuolation Dohle Bodies Tito Rods Platelet Estimate Hypogranular Platelets Giant Platelets Platelet Satelliting RBC Morphology Polychromasia Hypochromasia Poikilocytosis Basophilic Stippling Anisocytosis Microcytosis Macrocytosis Spherocytes Pappenheimer Bodies Sickle Cells Target Cells Tear Drop Cells Ovalocytes Stomatocytes Campuzano-Selby Bodies Echinocytes Acanthocytes (Spur) 2+ Rouleaux Cancelled RBC Agglutinates Cancelled Schistocytes Cancelled Sezary Cell Cancelled Sodium 136 (136-145) mmol/L Potassium 6.3 H* (3.5-5.1) mmol/L Chloride 110 H (98-107) mmol/L Carbon Dioxide 7 L* (21-32) mmol/L Anion Gap 19 H (3-11) BUN 161 H (6-23) mg/dl Creatinine 12.33 H* (0.6-1.2) mg/dl Est Cr Clr Drug Dosing 3.3 ml/min Est GFR ( Amer) 3.1 ml/min Est GFR (Non-Af Amer) 2.7 ml/min BUN/Creatinine Ratio 13.1 (10-20) Glucose 104 H (70-99(Fasting)) mg/dl Lactate 0.6 (0.4-2.0) mmol/L Calcium 5.9 L* (8.6-10.3) mg/dl Total Bilirubin 0.3 (0.2-1.0) mg/dl AST 8 L (13-39) U/L ALT 7 (7-52) U/L Alkaline Phosphatase 60 (34-104) U/L Troponin I High Sens 35.9 H (0-14) pg/ml Total Protein 6.4 (6.0-8.3) gm/dl Albumin 3.8 (3.4-5.0) gm/dl Globulin 2.6 (2.5-4.0) gm/dl Albumin/Globulin Ratio 1.5 (0.9-2) Lipase 490 H (11-82) U/L Blood Parasites ID Cancelled Administered Medications Discontinued Medications Dextrose (Dextrose 50% 50 Ml Syringe) 50 ml IV NOW ONE Stop: 03/02/24 00:31 Last Admin: 03/02/24 00:51 Dose: 50 ml Documented By: HERACLIO Sodium Chloride (Nss) 500 mls @ 999 mls/hr IV .Q31M STA Stop: 03/01/24 18:03 Last Infusion: 03/01/24 20:54 Dose: Infused Documented By: Admin: 03/01/24 20:11 Dose: 999 mls/hr Documented By: RAMILA Sodium Chloride (Nss) 1,000 mls @ 125 mls/hr IV .Q8H ANTIONETTE Stop: 03/31/24 23:29 Last Admin: 03/02/24 00:06 Dose: 125 mls/hr Documented By: HERACLIO Calcium Gluconate () 1,000 mg in 60 mls @ 240 mls/hr IV NOW STA Stop: 03/02/24 00:44 Last Admin: 03/02/24 00:59 Dose: 240 mls/hr Documented By: HERACLIO Insulin Human Regular (Novolin-R Insulin Per Unit Charge) 10 units IV NOW STA Stop: 03/02/24 00:31 Last Admin: 03/02/24 00:47 Dose: 10 units Documented By: HERACLIO Co-signed By: JARAD Ondansetron HCl (Ondansetron Inj 2 Mg/Ml 2 Ml Vial) 4 mg IV NOW STA Stop: 03/01/24 17:34 Last Admin: 03/01/24 20:11 Dose: 4 mg Documented By: RAMILA Ondansetron HCl (Ondansetron Inj 2 Mg/Ml 2 Ml Vial) Confirm Administered Dose 4 mg .ROUTE .[facility] ONE Stop: 03/01/24 20:10 Last Admin: 03/01/24 20:11 Dose: Not Given Documented By: RAMILA Ondansetron HCl (Ondansetron Inj 2 Mg/Ml 2 Ml Vial) 4 mg IV NOW STA Stop: 03/01/24 21:29 Last Admin: 03/01/24 21:32 Dose: 4 mg Documented By: RAMILA Sodium Bicarbonate (Sodium Bicarb 8.4% Inj 50 Meq/50 Ml Syr) 50 meq IV NOW STA Stop: 03/02/24 00:31 Last Admin: 03/02/24 00:53 Dose: 50 meq Documented By: [facility] Imaging Data Radiologist's Impression: Abdomen/Pelvis CT 03/01/24 23:23 Exam(s): CT ABDOMEN + PELVIS Without Contrast EXAM: CT Abdomen and Pelvis Without Intravenous Contrast CLINICAL HISTORY: Reason for exam: intractable N/V, ARF. TECHNIQUE: Axial computed tomography images of the abdomen and pelvis without intravenous contrast. CTDI is 10.65 mGy and DLP is 482.37 mGy-cm. Automated exposure control was utilized for the study. A dose lowering technique was utilized adhering to the principles of ALARA. COMPARISON: No relevant prior studies available. FINDINGS: Lung bases: Unremarkable. No mass. No consolidation. ABDOMEN: Liver: Unremarkable. Gallbladder and bile ducts: Cholecystectomy. No ductal dilation. Pancreas: Unremarkable. No ductal dilation. Spleen: Unremarkable. No splenomegaly. Adrenals: Unremarkable. No mass. Kidneys and ureters: Unremarkable. No hydronephrosis or nephrolithiasis. Stomach and bowel: Diverticulosis, without acute diverticulitis. No small bowel obstruction. No free intraperitoneal air. PELVIS: Appendix: Normal appendix. Bladder: Unremarkable. No stones. Reproductive: RIGHT ovarian cyst measures 2.4 x 2.0 cm. ABDOMEN and PELVIS: Intraperitoneal space: Unremarkable. No free air. No significant fluid collection. Bones/joints: Degenerative changes of the spine. No acute fracture. No dislocation. Soft tissues: Unremarkable. Vasculature: Atherosclerotic changes of the aorta. No abdominal aortic aneurysm. Lymph nodes: Unremarkable. No enlarged lymph nodes. IMPRESSION: 1. No hydronephrosis or nephrolithiasis. 2. Normal appendix. 3. Cholecystectomy. 4. RIGHT ovarian cyst measures 2.4 x 2.0 cm. 5. Diverticulosis, without acute diverticulitis. No small bowel obstruction. No free intraperitoneal air. Electronically signed by: Jordin Perez MD 03/02/24 00:29 AM Discharge Plan Visit Data Chief Complaint: Vomiting Stated Complaint: LUKEMIA, VOMITING, GAGGING ED Provider: Gary Small Discharge Problem: Acute renal failure, Vomiting, Acute dehydration, Acute hyperkalemia Forms Stand Alone Forms: My [facility] Prescriptions Prescriptions: No Action labetalol 100 mg Tablet 100 mg PO BID fluticasone propionate 50 mcg/actuation spray,suspension 2 spray INTRANASAL DAILY loratadine [Claritin] 10 mg Tablet 10 mg PO HS cholecalciferol (vitamin D3) [Vitamin D3] 25 mcg (1,000 unit) Capsule 25 mcg PO DAILY amlodipine 10 mg tablet 10 mg PO QAM Referrals Referrals: Chio Simental MD [Primary Care Provider] -
[2024-03-01] MEDS: ONDANSETRON INJ 2 MG/ML 2 ML VIAL IV STA ×2 (20:11→21:32)
[2024-03-01] MEDS: ONDANSETRON INJ 2 MG/ML 2 ML VIAL ONE (20:11)
[2024-03-01] MEDS: SODIUM CHLORIDE 0.9% 500 ML IV STA (20:11)
[2024-03-01 22:30] LABS: Hematocrit (blood only) 33.8 % (37.0-47.0); Hemoglobin 9.8 g/dl (12.0-16.0); Mean Corpuscular Hemoglobin 23.7 pg (25.0-34.0); Mean Corpuscular Volume 81.8 fL (80.0-100.0); Nucleated RBC # (auto) 0.03 K/uL (0.00-0.12); Nucleated RBC % (auto) 0.3 %; Platelet Count 193 K/uL (130-400); RDW Standard Deviation 70.2 fL (36.4-46.3); Red Blood Count 4.13 M/uL (4.20-5.40); White Blood Count 9.02 K/ul (4.8-10.8)
[2024-03-01 22:45] LABS: Acanthocytes 2+; Anisocytosis Present; Basophils # (auto) 0.05 K/uL (0.00-0.20); Basophils % (auto) 0.6 %; Echinocytes 1+; Eosinophils # (auto) 0.05 K/uL (0.00-0.50); Eosinophils % (auto) 0.6 %; Immature Granulocytes # (auto) 0.42 K/uL (0.01-0.20); Immature Granulocytes % (auto) 4.7 %; Lymphocytes # (auto) 1.04 K/uL (1.20-3.40); Lymphocytes % (auto) 11.5 %; Monocytes # (auto) 1.18 K/uL (0.11-0.59); Monocytes % (auto) 13.1 %; Neutrophils # (auto) 6.28 K/uL (1.40-6.50); Neutrophils % (auto) 69.5 %; Ovalocytes 1+; Tear Drop Cells 1+
[2024-03-01 23:23] LABS: Albumin Globulin Ratio 1.5 (0.9-2); Albumin Level 3.8 gm/dl (3.4-5.0); BUN Creatinine Ratio 13.1 (10-20); Bilirubin,Total 0.3 mg/dl (0.2-1.0); Calcium 5.9 mg/dl (8.6-10.3); Creatinine Clr Calc Pharmacy 3.3 ml/min; Est GFR (African American) 3.1 ml/min; Est GFR (Non-African American) 2.7 ml/min; Globulin 2.6 gm/dl (2.5-4.0); Potassium 6.3 mmol/L (3.5-5.1); Total Protein 6.4 gm/dl (6.0-8.3); Troponin I High Sensitivity 35.9 pg/ml (0-14)
[2024-03-02] MEDS: SODIUM CHLORIDE 0.9% 1,000 ML IV SCH (00:06)
--- NOTE | 2024-03-02 00:29 | CT Scan Report ---
Exam(s): CT ABDOMEN + PELVIS Without Contrast EXAM: CT Abdomen and Pelvis Without Intravenous Contrast CLINICAL HISTORY: Reason for exam: intractable N/V, ARF. TECHNIQUE: Axial computed tomography images of the abdomen and pelvis without intravenous contrast. CTDI is 10.65 mGy and DLP is 482.37 mGy-cm. Automated exposure control was utilized for the study. A dose lowering technique was utilized adhering to the principles of ALARA. COMPARISON: No relevant prior studies available. FINDINGS: Lung bases: Unremarkable. No mass. No consolidation. ABDOMEN: Liver: Unremarkable. Gallbladder and bile ducts: Cholecystectomy. No ductal dilation. Pancreas: Unremarkable. No ductal dilation. Spleen: Unremarkable. No splenomegaly. Adrenals: Unremarkable. No mass. Kidneys and ureters: Unremarkable. No hydronephrosis or nephrolithiasis. Stomach and bowel: Diverticulosis, without acute diverticulitis. No small bowel obstruction. No free intraperitoneal air. PELVIS: Appendix: Normal appendix. Bladder: Unremarkable. No stones. Reproductive: RIGHT ovarian cyst measures 2.4 x 2.0 cm. ABDOMEN and PELVIS: Intraperitoneal space: Unremarkable. No free air. No significant fluid collection. Bones/joints: Degenerative changes of the spine. No acute fracture. No dislocation. Soft tissues: Unremarkable. Vasculature: Atherosclerotic changes of the aorta. No abdominal aortic aneurysm. Lymph nodes: Unremarkable. No enlarged lymph nodes. IMPRESSION: 1. No hydronephrosis or nephrolithiasis. 2. Normal appendix. 3. Cholecystectomy. 4. RIGHT ovarian cyst measures 2.4 x 2.0 cm. 5. Diverticulosis, without acute diverticulitis. No small bowel obstruction. No free intraperitoneal air. Electronically signed by: Jordin Perez MD 03/02/24 00:29 AM
[2024-03-02] MEDS: NovoLIN-R INSULIN PER UNIT CHARGE IV STA (00:47)
[2024-03-02] MEDS: DEXTROSE 50% 50 ML SYRINGE IV ONE ×2 (00:51→05:55)
[2024-03-02] MEDS: SODIUM BICARB 8.4% INJ 50 MEQ/50 ML SYR IV STA (00:53)
[2024-03-02] MEDS: CALCIUM GLUCONATE 1,000 MG/60 ML BAG IV STA ×2 (00:59→05:55)
--- OUTSIDE RECORDS SUMMARY | 2024-03-02 01:13 | External Medical Summary | Summary of Care ---
Author Name Unknown Organization [facility] Address [address] [place] [address] Phone [phone] Care Team Providers Care Nuclear Medicine Pet Ct Technologist Name Role Phone Chio Simental MD Primary Care Provider [phone] Reason for Visit * Reason Onset Date Comments Med Request 01/26/2024 Advice 01/26/2024 Encounter Details Date Type Department Care Team ([facility] Contact Info) Description 01/26/2024 Telephone General Internal Medicine [facility] [address] [place] [address] Chio Simental MD [address] [place] [address] Med Request; Advice Allergies Active Allergy Reactions Criticality Noted Date Comments Ampicillin Rash Medium 09/04/2023 Codeine Rash 07/21/2023 Iodinated Contrast Media Itching,Rash 3 Penicillins Rash 09/01/2023 Swelling Red Dye Hives 07/21/2023 documented as of this encounter (statuses as of 02/28/2024) Medications Medication Sig Dispensed Refills Start Date End Date Status Procrit 91895 UNIT/ML Injection Solution (Epoetin Gabriel) Inject under the skin. 0 3 Active CPAP every night at bedtime. 0 Active Cholestyramine 4 GM Oral Packet (Questran)Indicat ions:Hx laparoscopic cholecystectomy,C hronic diarrhea Take 1 Packet by mouth 2 times a day as needed (loose stools). Mix with water and drink before a meal. As directed 60 Packet 1 3 Active Additional Information Patient not taking.Reported on 01/01/2024 Acetaminophen 500 MG Oral Tablet (Tylenol)Indicati ons:Hand arthritis Take 2 Tablets by mouth every 6 hours as needed for Pain, Mild or Pain, Moderate. 100 Tablet 0 3 Active Additional Information Patient not taking.Reported on 02/26/2024 Labetalol HCl 100 MG Oral Tablet (Normodyne)Indica tions:CKD (chronic kidney disease) stage 4, GFR 15-29 ml/min (HCC),HTN, goal below 130/80 Take 1 Tablet by mouth in the morning and 1 Tablet before bedtime. 180 Tablet 1 3 Active Zoster Vac Recomb Adjuvanted 50 MCG/0.5ML Intramuscular Suspension Reconstituted (Shingrix)Indicat ions:Need for shingles vaccine Inject 0.5 mL into a large muscle now and repeat dose in 60 to 180 days 1 Each 1 4 Active Additional Information Patient not taking.Reported on 01/01/2024 Vitamin D-3 25 MCG (1000 UT) Oral CapsuleIndication s:Vitamin D insufficiency,Hyp erparathyroidism, secondary renal (HCC) Take 1 Capsule by mouth in the morning. 90 Capsule 3 4 Active Loratadine 10 MG Oral Tablet (Claritin)Indicat ions:Post-nasal drip,Bilateral chronic serous otitis media Take 1 Tablet by mouth at bedtime. 90 Tablet 3 4 Active Slow-Mag 71.5-119 MG Oral Tablet Delayed Release (Magnesium Cl-Calcium Carbonate)Indicat ions:CKD (chronic kidney disease) stage 4, GFR 15-29 ml/min (HCC),Hypomagnese sadaf one pill twice a day 0 4 Active Sodium Bicarbonate 650 MG Oral Tablet Take 1 Tablet by mouth in the morning and 1 Tablet before bedtime. 120 Tablet 11 4 Active Additional Information Patient not taking.Reported on 02/26/2024 amLODIPine Besylate 10 MG Oral Tablet (Norvasc)Indicati ons:CKD (chronic kidney disease) stage 4, GFR 15-29 ml/min (HCC),HTN, goal below 130/80 Take 1 Tablet by mouth in the morning. Inc 10/26/2023. 90 Tablet 3 4 Active Nirmatrelvir&Jose navir 150/100 10 x 150 MG & 10 x 100MG Oral Tablet Therapy Pack (Paxlovid)Indicat ions:COVID-19 virus infection,CKD (chronic kidney disease) stage 4, GFR 15-29 ml/min (HCC),MDS (myelodysplastic syndrome) (HCC) Take 1 Tablet by mouth in the morning and 1 Tablet before bedtime. Take 1 pink tablet of Nirmatrelvir and 1 white tablet of Ritonavir two times a day by mouth.. 10 Tablet 0 4 Active Additional Information Patient not taking.Reported on 02/26/2024 cloNIDine 0.3 MG/24HR Transdermal Patch Weekly (Dhyvmnboz-Dvd-2) Indications:CKD (chronic kidney disease) stage 4, GFR 15-29 ml/min (HCC),HTN, goal below 130/[address] Place 1 Patch topically on the skin once a week. 12 Patch 1 3 024 Discontinued Lenalidomide 2.5 MG Oral Capsule (Revlimid)Indicat ions:MDS (myelodysplastic syndrome) (HCC) Take 2.5 mg by mouth in the morning. For 28 days of a 28 day cycle. 28 Capsule 0 4 024 Discontinued(Re fill) documented as of this encounter (statuses as of 02/28/2024) Active Problems Problem Noted Date Diagnosed Date Anemia of chronic renal failure, stage 4 (severe ) 12/28/2023 Overview: Per CKD protocol HTN, goal below 130/80 09/04/2023 Overview: Echo 2021, ex stress test 2021-neg per pt History of nephrolithiasis 09/04/2023 Overview: Left -lithotripsy past History of left breast cancer 09/04/2023 History of colonoscopy 09/04/2023 Overview: No polyps in past, neg 2021 in [place], [place] Pap smear for cervical cancer screening 09/04/20 23 Overview: [place] ?2020 Screening for osteoporosis 09/04/2023 Overview: Dexa 2021-nml per pt Hypomagnesemia 09/04/2023 Mild protein-calorie malnutrition 09/04/2023 VIPIN on CPAP 09/04/2023 Hx laparoscopic cholecystectomy 09/04/2023 Chronic diarrhea 09/04/2023 CKD (chronic kidney disease) stage 4, GFR 15-29 ml/min 09/04/2023 MDS (myelodysplastic syndrome) 09/01/2023 documented as of this encounter (statuses as of 02/28/2024) Resolved Problems Problem Noted Date Diagnosed Date Resolved Date CKD (chronic kidney disease) stage 4, GFR 15-29 ml/min 09/04/2023 09/04/2023 Anemia due to chronic kidney disease 09/01/2023 12/31/2023 Overview: Per CKD protocol documented as of this encounter (statuses as of 02/28/2024) Immunizations Name Administration Dates Next Due Pneumococcal Conjugate Vacc, 13 Valent (Prevnar) 01/25/2020 Pneumococcal Polysaccharide PPV23 (Pneumovax) Season Influenza, Quad, PF, Adjuvanted, 65+ Yrs, IM (FLUAD) 08/08/2020 Seasonal Influenza, Quadrivalent Hd (Fluzone Hd) 09/04/2023,09/10/2021 Seasonal Influenza, Split, IIV3, With Preserve, Inj 09/08/2017,11/26/2016 TDAP (age 10 and older)(Boostrix) 08/08/2020 documented as of this encounter Social History Tobacco Use Types Packs/Day Years Used Date Smoking Tobacco: Never Smokeless Tobacco: Never Alcohol Use Standard Drinks/Week Comments Never 0 (1 standard drink = 0.6 oz pur e alcohol) PHQ-2 Answer Date Recorded PHQ Adult Total Score 0 09/04/2023 Sex and Gender Information Value Date Recorded Sex Assigned at Not on file Gender Identity Not on file Sexual Orientation Not on file Job Start Date Occupation Industry Not on file Not on file Not on file documented as of this encounter Miscellaneous Notes * Telephone Encounter - Ginette Junior LPN - 01/27/2024 7:06 PM EDT Left message for patient letting her know med was sent. * Telephone Encounter - Chio Simental MD - 01/27/2024 6:44 PM EDT GFR 14 eGFR <30 mL/minute: Use is not recommended according to the mat man; however, the risk of toxicity is likely to be minimal with a 5-day course of treatment. Based on retrospective data in a limited number of patients: Nirmatrelvir 150 mg and ritonavir 100 mg twice daily for 5 days was reasonably well tolerated (Ref). * Telephone Encounter - Libby Simmons cane flume watchman - 01/27/2024 6:21 PM EDT Pt needs that paxlovid before it is too late under the five day rule Please send rivka Thank you for your assistance Libby Simmons Immigration Lawyer II [facility] 01/27/2024,6:22 PM * Telephone Encounter - Sonya Coronel LPN - 01/27/2024 3:11 PM EDT Called and spoke with pt. Pt states her symptoms started Thursday01/23/23 Symptoms include cough, congestion, & mild SOB with cough, fever at night Positive test yesterday * Telephone Encounter - Josefa Fowler OSA - 01/27/2024 3:08 PM EDT Patient calling in to check on the status of previous message. Patient Called within 48 hour timeframe. Reminded patient of 48 hour turn-around time. * Telephone Encounter - Maryuri Munson OSA - 01/27/2024 11:15 AM EDT Patient called for update Please advise Contact info and pharmacy in TE correct * Telephone Encounter - Tegan Ludwig OSA - 01/26/2024 7:12 PM EDT Patient calling stating she has COVID 19 and would like prescription for [facility]id [facility] Please call patient to advise. documented in this encounter Plan of Treatment Upcoming Encounters Date Type Department Care Team (Late st Contact Info) Description 03/01/2024 12:10 PM EDT Laboratory Laboratory [facility] [place] [address] [place] [phone] [place] [facility] [address] [place] [address] 03/01/2024 1:15 PM EDT Immunization/Injecti on Hematology/Oncology Treatment, [place] [address] [place] [phone] Nurse, Med [address] [place] [address] 03/01/2024 6:30 PM EDT Scheduled Telephone Pharmacy Hematology Oncology [facility] [place] [address] [place] [address] [facility] Hem/Onc [facility] [address] [place] [address] 03/09/2024 2:00 PM EDT Office Visit Hematology/Oncology [facility] [place] [address] [place] [phone] Kaci Patterson MD [address] [place] [address] 03/15/2024 8:40 AM EDT Office Visit Sleep Disorders Ctr Afs[facility] [place] [address] [place] [phone] Mily Lau, [address] [place] [address] 04/04/2024 11:20 AM EDT Office Visit General Internal Medicine [facility] [place] [address] [facility] [place] [address] Chio Simental MD 200 [facility] [place] [address] 04/05/2024 9:00 AM EDT Pharmacy Pharmacy Hematology Oncology [facility] [address] [place] [address] [facility] Hem/Onc [address] [place] [address] 04/05/2024 11:40 AM EDT Office Visit Nephrology, [facility] [address] [facility] [place] [address] Tariq Pena MD [address] [facility] [place] [address] Health Maintenance Due Date Last Done Comments Hgb 02/09/1970 Zoster Vaccines (1 of 2) 02/09/1971 Cologuard 02/09/1997 Colonoscopy 02/09/1997 Colorectal Cancer Screening 02/09/1997 Fecal Occult Blood Test 02/09/1997 Sigmoidoscopy 02/09/1997 DXA Scan 02/09/2017 COVID-19 Vaccine (2 - Pfizer risk series) 09/27/2023 09/06/2023 GFR 07/12/2024 01/12/2024, 12/17, 12/08/2023, Additional history exists Depression Screening 09/04/2024 09/04/2023 Nephrology Referral 09/09/2024 09/09/2023 PTH 09/14/2024 09/14/2023, 09/07/2023 Phosphate 09/14/2024 09/14/2023, 09/07/2023 Albumin/Creatinine Ratio 09/16/2024 09/16/2023 Lipid Panel 09/07/2028 09/07/2023 DTaP,Tdap,and Td Vaccines (2 - Td or Tdap) 08/08/2030 08/08/2020 Pneumococcal Vaccine: 65+ Years Completed 01/25/2020, 10/13/2017 Influenza Vaccine (FLU shot) Completed , 09/10/2021, 08/08/2020, Additional history exists GARDASIL-HPV IMMUNIZATION SERIES Aged Out No longer eligible based on patient's age to complete this topic Hepatitis B Aged Out No longer eligi ble based on patient's age to complete this topic MENINGOCOCCAL (MENACTRA/MENVEO) Aged Out No longer eligible based on patient's age to complete this topic documented as of this encounter Medical Devices Not on filedocumented as of this encounter Visit Diagnoses Diagnosis COVID-19 virus infection- Primary CKD (chronic kidney disease) stage 4, GFR 15-29 ml/min (HCC) Chronic kidney disease, Stage IV (severe) MDS (myelodysplastic syndrome) (HCC) Myelodysplastic syndrome, unspecified documented in this encounter Care Teams Nuclear Medicine Pet Ct Technologist Relationship Specialty Start Date End Date Chio Simental MD [address] [place] [address] PCP - General Internal Medicine 09/04/23 documented as of this encounter
--- OUTSIDE RECORDS SUMMARY | 2024-03-02 01:13 | External Medical Summary | Summary of Care ---
Author Name Unknown Organization [facility] Address [address] [place] [address] Phone [phone] Care Team Providers Care Journeyman Plumber Name Role Phone Chio Simental MD Primary Care Provider [phone] Reason for Visit * Reason Comments Medication Management Encounter Details Date Type Department Care Team ([facility] Contact Info) Description 02/23/2024 9:00 AM EDT Pharmacy Pharmacy Hematology Oncology [facility] [address], [place] [id number] [facility] [address] [place] [address] MDS (myelodysplastic syndrome) ([facility])* Allergies Active Allergy Reactions Criticality Noted Date Comments Ampicillin Rash Medium 09/04/2023 Codeine Rash 07/21/2023 Iodinated Contrast Media Itching,Rash 3 Penicillins Rash 09/01/2023 Swelling Red Dye Hives 07/21/2023 documented as of this encounter (statuses as of 02/23/2024) Medications Medication Sig Dispensed Refills Start Date End Date Status Procrit 91118 UNIT/ML Injection Solution (Epoetin Gabriel) Inject under the skin. 0 07/28/2023 Active CPAP every night at bedtime. 0 Active Cholestyramine 4 GM Oral Packet (Questran)Indicatio ns:Hx laparoscopic cholecystectomy,Chr onic diarrhea Take 1 Packet by mouth 2 times a day as needed (loose stools). Mix with water and drink before a meal. As directed 60 Packet 1 09/04/2023 Active Additional Information Patient not taking.Reported on 01/01/2024 Acetaminophen 500 MG Oral Tablet (Tylenol)Indication s:Hand arthritis Take 2 Tablets by mouth every 6 hours as needed for Pain, Mild or Pain, Moderate. 100 Tablet 0 09/04/2023 Active Labetalol HCl 100 MG Oral Tablet (Normodyne)Indicati ons:CKD (chronic kidney disease) stage 4, GFR 15-29 ml/min (HCC),HTN, goal below 130/80 Take 1 Tablet by mouth in the morning and 1 Tablet before bedtime. 180 Tablet 1 09/28/2023 Active Zoster Vac Recomb Adjuvanted 50 MCG/0.5ML Intramuscular Suspension Reconstituted (Shingrix)Indicatio ns:Need for shingles vaccine Inject 0.5 mL into a large muscle now and repeat dose in 60 to 180 days 1 Each 1 12/16/2023 Active Additional Information Patient not taking.Reported on 01/01/2024 Vitamin D-3 25 MCG (1000 UT) Oral CapsuleIndications: Vitamin D insufficiency,Hyper parathyroidism, secondary renal (HCC) Take 1 Capsule by mouth in the morning. 90 Capsule 3 01/01/2024 Active Loratadine 10 MG Oral Tablet (Claritin)Indicatio ns:Post-nasal drip,Bilateral chronic serous otitis media Take 1 Tablet by mouth at bedtime. 90 Tablet 3 01/01/2024 Active Slow-Mag 71.5-119 MG Oral Tablet Delayed Release (Magnesium Cl-Calcium Carbonate)Indicatio ns:CKD (chronic kidney disease) stage 4, GFR 15-29 ml/min (HCC),Hypomagnesemi a one pill twice a day 0 01/03/2024 Active Sodium Bicarbonate 650 MG Oral Tablet Take 1 Tablet by mouth in the morning and 1 Tablet before bedtime. 120 Tablet 11 01/04/2024 Active amLODIPine Besylate 10 MG Oral Tablet (Norvasc)Indication s:CKD (chronic kidney disease) stage 4, GFR 15-29 ml/min (HCC),HTN, goal below 130/80 Take 1 Tablet by mouth in the morning. Inc 10/26/2023. 90 Tablet 3 01/08/2024 Active Lenalidomide 2.5 MG Oral Capsule (Revlimid)Indicatio ns:MDS (myelodysplastic syndrome) (HCC) Take 2.5 mg by mouth in the morning. For 28 days of a 28 day cycle. 28 Capsule 0 01/26/2024 Active Nirmatrelvir&Ritona vir 150/100 10 x 150 MG & 10 x 100MG Oral Tablet Therapy Pack (Paxlovid)Indicatio ns:COVID-19 virus infection,CKD (chronic kidney disease) stage 4, GFR 15-29 ml/min (HCC),MDS (myelodysplastic syndrome) (HCC) Take 1 Tablet by mouth in the morning and 1 Tablet before bedtime. Take 1 pink tablet of Nirmatrelvir and 1 white tablet of Ritonavir two times a day by mouth.. 10 Tablet 0 01/27/2024 Active cloNIDine 0.3 MG/24HR Transdermal Patch Weekly (Clanwypsf-Iya-6)In dications:CKD (chronic kidney disease) stage 4, GFR 15-29 ml/min (HCC),HTN, goal below 130/80 PLATCH 1 PATCH TOPICALLY ONCE WEEKLY. 12 Patch 1 02/02/2024 Active documented as of this encounter (statuses as of 02/23/2024) Active Problems Problem Noted Date Diagnosed Date [...] as of this encounter (statuses as of 02/23/2024) Resolved Problems Problem Noted Date Diagnosed Date Resolved Date CKD (chronic kidney disease) stage 4, GFR 15-29 ml/min 09/04/2023 09/04/2023 Anemia due to chronic kidney disease 09/01/2023 12/31/2023 Overview: Per CKD protocol documented as of this encounter (statuses as of 02/23/2024) Immunizations Name Administration Dates Next Due Pneumococcal [...] on file documented as of this encounter Progress Notes * Ofelia Vera, [facility] - 02/23/2024 3:40 PM EDT MEDICATION THERAPY MANAGEMENT LENALIDOMIDE TREATMENT PROGRESS NOTE Shyann Gibson [phone] Patient Phone Numbers Preferred Lab: [facility] Pharmacy: [facility] Communication: Left message Treatment: Medication: Lenalidomide (Revlimid) Indication/Staging/Diagnosis Code: MDS, deletion 5q / D46.C Dose: 2.5mg daily Administration: +/- food Start Date: 12/27/19 Primary Engineering Inspection Assistant/Oncologist: Dr. Patterson Supportive Care Meds: None Prophylactic Meds: Reticrit 40,000 units weekly for CKD-induced anemia Treatment History: None Dose adjustment / medication hold: 10/20/23-10/27/23: HOLD due to grade 2/3 thrombocytopenia 12/18/23-12/29/23: held due to diarrhea Interval History: Per TE 12/15/23, pt c/o diarrhea and advised to take loperamide 2mg QID PRN symptom relief Per TE 12/19/23 addendum, stool PCR positive for norovirus Per TE 01/04/24, [facility] has been unable to contact pt to schedule lenalidomide shipment Per treatment room encounter 01/12/24, pt will be out of town next week and will repeat labs in 2 weeks Changes to medication list since last visit? No Assessment and Plan: PLT 98k, decreasing, grade 1 thrombocytopenia LM to monitor for signs of increased bruising or bleeding Hgb 10.2 stable - epo administered 02/09/24 CBC otherwise stable Continue lenalidomide and weekly labs MTM to extend lab monitoring/follow up to monthly as pt labs have been stable x 8 weeks Assessment of compliance: compliant Assessment of adverse effects attributed to drug therapy: N/A Dose adjustment needed based on lab or adverse drug reaction? No Follow up: 03/01 Labs, 03/09 OV; 3 weeks MTM Ofelia Vera, KieshaD, BCOP Clinical Pharmacist [facility] 02/23/2024, 3:54 PM Monitoring Parameters: Estimated CrCl Serum creatinine: 3.3 mg/dL (H) 01/12/24 1254 Estimated creatinine clearance: 13.5 mL/min (A) Hepatitis panel Latest Reference Range & Units 09/15/23 14:07 HEPATITIS B SURFACE ANTIGEN Rpt Hepatitis B Surface Antigen Negative Negative Hepatitis B Surface Antibody, Quantitative mIU/mL <3.5 HEPATITIS B SURFACE ANTIBODY Rpt Hepatitis B Surface Antibody, Interpretation NOT immune to Hepatitis B Virus Hepatitis B Surface Antibody, Qualitative Negative Hepatitis B Core Antibodies IgG and IgM Negative Negative Rpt: View report in Results Review for more information test N/A - pt postmenopausal Suggested lab monitoring Suggested labs (MDS): CBCd q1wk x 8wk, then qmo thereafter; SCr/LFTs/TSH baseline, then q2-3mo; tests 2 negative test 10 to 14 days prior to initiation and w/in 24hr of treatment initiation, q1wk x 1 mo, then q2-4wk through 4 weeks after therapy d/c Is patient a woman of child-bearing potential or having sex with one? no On prophylactic anticoagulation? no Treatment Parameters PLT > 50K, ANC > 1000 Pertinent labs: Latest Reference Range & Units 02/09/24 12:36 02/16/24 12:43 02/23/24 12:33 WBC 4.00 - 10.80 K/uL 6.08 6.80 7.11 RBC 3.85 - 5.15 M/uL 4.14 4.25 4.20 HGB 12.0 - 15.3 g/dL 9.9 (L) 10.3 (L) 10.2 (L) HCT 36.0 - 45.2 % 34.0 (L) 35.7 (L) 34.1 (L) MCV 81.5 - 97.5 fL 82.1 84.0 81.2 MCH 27.0 - 34.0 pg 23.9 24.2 24.3 MCHC 32.0 - 36.0 g/dL 29.1 28.9 29.9 RDW 11.5 - 15.5 % 27.4 26.6 24.3 PLT 140 - 400 K/uL 106 (L) 113 (L) 98 (L) MPV SEE REPORT SEE REPORT SEE REPORT CBC WITH WBC DIFFERENTIAL Rpt ! Rpt ! Rpt ! Absolute Neutrophils 1.80 - 7.70 K/uL 3.53 3.88 4.98 (L): Data is abnormally low !: Data is abnormal Rpt: View report in Results Review for more information Time Spent on Encounter: 6 - 10 minutes Encounter Group: Hematology Encounter Interventions Item Category: Oral Chemotherapy Lenalidomide Problem/Rationale: Safety: Needs additional monitoring - Medication Requires monitoring Pharmacist Intervention(s): Lab monitoring and Toxicity monitoring Magnitude of Intervention: Monitoring with direction (Level 1) documented in this encounter Plan of Treatment Upcoming Encounters Date Type Department Care Team (Late st Contact Info) Description 02/26/2024 6:00 PM EDT Scheduled Telephone Pharmacy Hematology Oncology [facility] [address] [place] [address] [place] [facility] Hem/Onc [facility] [address] [place] [address] 03/01/2024 12:10 PM EDT Laboratory Laboratory [facility] [place] [address] [place] [phone] Elinor Barros [facility] [address] [facility] [place] [address] 03/01/2024 1:15 PM EDT Immunization/Injecti on Hematology/Oncology Treatment, [place] [address] [facility] [place] [phone] Nurse, Med [address] [place] [address] 03/09/2024 2:00 PM EDT Office Visit Hematology/Oncology [facility] [place] [address] [place] [place] [phone] Kaci Patterson MD 200 [facility] [address] [place] [phone] 03/15/2024 8:40 AM EDT Office Visit Sleep Disorders Ctr Afs[facility] [place] [address] [place] [phone] Mily Lau DO [address] [place] [address] 03/15/2024 9:00 AM EDT Pharmacy Pharmacy Hematology Oncology [facility] [address] [place] [address] [facility] Hem/Onc [address] [place] [address] 04/04/2024 11:20 AM EDT Office Visit General Internal Medicine [facility] Fi[place]lla [place] [address] [place] [address] Chio Simental MD [address] [place] [address] Health Maintenance Due Date Last Done Comments [...] as of this encounter Visit Diagnoses Diagnosis MDS (myelodysplastic syndrome) (HCC)- Primary Myelodysplastic syndrome, unspecified documented in this encounter Care Teams Journeyman Plumber Relationship Specialty Start Date End Date [facility]io Simental MD [address] [facility] [address] PCP - General Internal Medicine 09/04/23 documented as of this encounter
--- OUTSIDE RECORDS SUMMARY | 2024-03-02 01:13 | External Medical Summary ---
Author Name Unknown Address Unknown Organization K09:[facility] [place] [address] Laboratory Report Ordering Provider Test Date Status LEYDA MENSAH 03/01/2024 12:59:52 Final Observation Date Value Abnormality Reference (Units ) Status WBC, Total 03/01/2024 12:59:52 7.77 4.00-10.8 0 (K/uL) Final RBC 03/01/2024 12:59:52 4.14 3.85-5.15 (M/uL) Final Hemoglobin 03/01/2024 12:59:52 9.8 Below low normal 12 .0-15.3 (g/dL) Final HCT 03/01/2024 12:59:52 32.8 Below low normal 36. 0-45.2 (%) Final MCV 03/01/2024 12:59:52 79.2 81.5-97.5 (fL) Final MCH 03/01/2024 12:59:52 23.7 27.0-34.0 (pg) Final MCHC 03/01/2024 12:59:52 29.9 32.0-36.0 (g/dL) Final RDW 03/01/2024 12:59:52 24.5 11.5-15.5 (%) Final Platelets 03/01/2024 12:59:52 156 140-400 (K /uL) Final MPV 03/01/2024 12:59:52 Final No result - abnormal platele t distribution. Performing Location [facility] [address]
--- OUTSIDE RECORDS SUMMARY | 2024-03-02 01:13 | External Medical Summary | Summary of Care ---
Author Name Unknown Organization [facility] Address [address] [place] [address] Phone [phone] Care Team Providers Care Ell Teacher Name Role Phone Chio Simental MD Primary Care Provider [phone] Reason for Visit * Reason Onset Date Comments Medication Refill 02/26/2024 Encounter Details Date Type Department Care Team ([facility] Contact Info) Description 02/26/2024 Refill Hematology/Oncology [facility] [address] [place] [address] Kaci Crabtree MD [address] [place] [address] MDS (myelodysplastic syndrome) ([facility])* Allergies Active Allergy Reactions Criticality Noted Date Comments Ampicillin Rash Medium 09/04/2023 Codeine Rash 07/21/2023 Iodinated Contrast Media Itching,Rash 3 Penicillins Rash 09/01/2023 Swelling Red Dye Hives 07/21/2023 documented as of this encounter (statuses as of 02/26/2024) Medications Medication Sig Dispensed Refills Start Date End Date Status Procrit 41640 UNIT/ML Injection Solution (Epoetin Gabriel) Inject under the skin. 0 07/28/2023 Active CPAP every night at bedtime. 0 Active Cholestyramine 4 GM Oral Packet (Questran)Indicati ons:Hx laparoscopic cholecystectomy,Ch ronic diarrhea Take 1 Packet by mouth 2 times a day as needed (loose stools). Mix with water and drink before a meal. As directed 60 Packet 1 09/04/2023 Active Additional Information Patient not taking.Reported on 01/01/2024 Acetaminophen 500 MG Oral Tablet (Tylenol)Indicatio ns:Hand arthritis Take 2 Tablets by mouth every 6 hours as needed for Pain, Mild or Pain, Moderate. 100 Tablet 0 09/04/2023 Active Labetalol HCl 100 MG Oral Tablet (Normodyne)Indicat ions:CKD (chronic kidney disease) stage 4, GFR 15-29 ml/min (HCC),HTN, goal below 130/80 Take 1 Tablet by mouth in the morning and 1 Tablet before bedtime. 180 Tablet 1 09/28/2023 Active Zoster Vac Recomb Adjuvanted 50 MCG/0.5ML Intramuscular Suspension Reconstituted (Shingrix)Indicati ons:Need for shingles vaccine Inject 0.5 mL into a large muscle now and repeat dose in 60 to 180 days 1 Each 1 12/16/2023 Active Additional Information Patient not taking.Reported on 01/01/2024 Vitamin D-3 25 MCG (1000 UT) Oral CapsuleIndications :Vitamin D insufficiency,Hype rparathyroidism, secondary renal (HCC) Take 1 Capsule by mouth in the morning. 90 Capsule 3 01/01/2024 Active Loratadine 10 MG Oral Tablet (Claritin)Indicati ons:Post-nasal drip,Bilateral chronic serous otitis media Take 1 Tablet by mouth at bedtime. 90 Tablet 3 01/01/2024 Active Slow-Mag 71.5-119 MG Oral Tablet Delayed Release (Magnesium Cl-Calcium Carbonate)Indicati ons:CKD (chronic kidney disease) stage 4, GFR 15-29 ml/min (HCC),Hypomagnesem ia one pill twice a day 0 01/03/2024 Active Sodium Bicarbonate 650 MG Oral Tablet Take 1 Tablet by mouth in the morning and 1 Tablet before bedtime. 120 Tablet 11 01/04/2024 Active amLODIPine Besylate 10 MG Oral Tablet (Norvasc)Indicatio ns:CKD (chronic kidney disease) stage 4, GFR 15-29 ml/min (HCC),HTN, goal below 130/80 Take 1 Tablet by mouth in the morning. Inc 10/26/2023. 90 Tablet 3 01/08/2024 Active Nirmatrelvir&Riton avir 150/100 10 x 150 MG & 10 x 100MG Oral Tablet Therapy Pack (Paxlovid)Indicati ons:COVID-19 virus infection,CKD (chronic kidney disease) stage 4, GFR 15-29 ml/min (HCC),MDS (myelodysplastic syndrome) (HCC) Take 1 Tablet by mouth in the morning and 1 Tablet before bedtime. Take 1 pink tablet of Nirmatrelvir and 1 white tablet of Ritonavir two times a day by mouth.. 10 Tablet 0 01/27/2024 Active cloNIDine 0.3 MG/24HR Transdermal Patch Weekly (Qpuqprhgp-Hrs-9)I ndications:CKD (chronic kidney disease) stage 4, GFR 15-29 ml/min (HCC),HTN, goal below 130/80 PLATCH 1 PATCH TOPICALLY ONCE WEEKLY. 12 Patch 1 02/02/2024 Active Lenalidomide 2.5 MG Oral Capsule (Revlimid)Indicati ons:MDS (myelodysplastic syndrome) (HCC) Take 2.5 mg by mouth in the morning. For 28 days of a 28 day cycle. 28 Capsule 0 02/26/2024 Active Lenalidomide 2.5 MG Oral Capsule (Revlimid)Indicati ons:MDS (myelodysplastic syndrome) (HCC) Take 2.5 mg by mouth in the morning. For 28 days of a 28 day cycle. 28 Capsule 0 01/26/2024 4 Discontinu ed(Refill) documented as of this encounter (statuses as of 02/26/2024) Active Problems Problem Noted Date Diagnosed Date [...] as of this encounter (statuses as of 02/26/2024) Resolved Problems Problem Noted Date Diagnosed Date Resolved Date CKD (chronic kidney disease) stage 4, GFR 15-29 ml/min 09/04/2023 09/04/2023 Anemia due to chronic kidney disease 09/01/2023 12/31/2023 Overview: Per CKD protocol documented as of this encounter (statuses as of 02/26/2024) Immunizations Name Administration Dates Next Due Pneumococcal [...] encounter Miscellaneous Notes * Telephone Encounter - Abdulkadir Todd [facility] - 02/26/2024 10:28 AM EDT Signed Prescriptions: Disp Refills Lenalidomide 2.5 MG Oral Capsule (Revlimid)28 Cap*0 Sig: Take 2.5 mg by mouth in the morning. For 28 days of a 28 day cycle.Authorizing Provider: KACI CRABTREEing User: ABDULKADIR TODD * Telephone Encounter - Abdulkadir Todd [facility] - 02/26/2024 10:25 AM EDT Refill Request EPIC Note Clinical Pharmacy Service (Hematology/Oncology): Refill Request(s) PHYSICIAN ACTION: No Assessment & Plan After reviewing the parameters in order to refill the patient's medication(s), the following was determined: The medication(s), lenalidomide, was refilled and no parameters need to be addressed No communication to requesting entity necessary Refill Parameters The following parameters were assessed in order to decide whether or not this refill was appropriate: Refill Parameter Comments If the patient was seen in the last 6 months (12 months for MPN patients) Yes - 11/04/23 If the labs were completed per prescribing information recommendations or provider recommendations Yes - 02/23/24 If the labs were within normal limits or stable at baseline yes If the dose was correct and/or if the prescription sig reflects the current prescribed dose yes If there were any new drug interactions with the patient's oral chemotherapy no If there were any care gaps/baseline labs that need to be addressed no Abdulkadir Todd [facility] Ambulatory Clinical Pharmacist | Oral Chemotherapy Clinic [facility] 02/26/2024, 10:25 AM * Telephone Encounter - Maryse Contreras CPhT - 02/26/2024 10:00 AM EDT PHARMACY REMS MEDICATION AUTHORIZATION Shyann Gibson [phone] Patient Phone Numbers Communication: Chart review Treatment: Medication: Lenalidomide (Revlimid) Indication/Staging/Diagnosis Code: MDS, deletion 5q / D46.C Dose: 2.5mg daily Administration: +/- food Start Date: 12/27/19 Primary Review Nurse/Oncologist: Dr. Crabtree Patient managed by Hem/Onc [facility] - Yes Patient is due for/had labs on 02/22 Prescriber survey complete; [facility] auth number [id number]. Upon new prescription being sent to [facility] specialty pharmacy, will follow up on [employer] website within 1-2 business days to confirm medication dispensed Maryse Contreras Crop Grain Or Livestock Farmer III [facility] Oral Chemotherapy Clinic 02/26/2024 10:04 AM documented in this encounter Plan of Treatment Upcoming Encounters Date Type Department Care Team (Latest Contact Info) Description 02/26/2024 6:00 PM EDT Scheduled Telephone Pharmacy Hematology Oncology [address] [address] [facility] Hem/Onc Tech [address] [place] [phone] MDS (myelodysplastic syndrome) (HCC)* 03/01/2024 12:10 PM EDT Laboratory Laboratory [facility] [address] [place] [phone] [place], Lab Scenery 200 [facility] [place] [address] 03/01/2024 1:15 PM EDT Immunization/Inject ion Hematology/Oncolog y Treatment, [place] [address] [place] [phone] Nurse, Med 4 200 [facility] [place] [address] 03/01/2024 6:30 PM EDT Scheduled Telephone Pharmacy Hematology Oncology [address] [address] [facility] Hem/Onc Tech [address] [place] [address] 03/09/2024 2:00 PM EDT Office Visit Hematology/Oncolog y [facility] [address] [place] [phone] Kaci Crabtree MD 200 [facility] [place] [address] 03/15/2024 8:40 AM EDT [facility] [address] [place] [phone] Mily Lau DO [address] [place] [address] 04/04/2024 11:20 AM EDT Office Visit General Internal Medicine [facility] [place] [address] [place] [address] Chio Simental MD [address] [facility] [address] [place] [facility] [address] 04/05/2024 9:00 AM EDT Pharmacy Pharmacy Hematology Oncology [facility] [address] [place] [address] [facility] Hem/Onc [address] [place] [address] 04/05/2024 11:40 AM EDT Office Visit Nephrology, [facility] [address] [place], [place] [address] Tariq ePna MD 200 [facility] [address] [place], [place] [address] Health Maintenance Due Date Last Done Comments [...] (myelodysplastic syndrome) (HCC)- Primary Myelodysplastic syndrome, unspecified MDS (myelodysplastic syndrome) (HCC)- Primary Myelodysplastic syndrome, unspecified documented in this encounter Care Teams Ell Teacher Relationship Specialty Start Date End Date Chio Simental MD [address] [place] [address] PCP - General Internal Medicine 09/04/23 documented as of this encounter"
--- OUTSIDE RECORDS SUMMARY | 2024-03-02 01:13 | External Medical Summary | Summary of Care ---
Author Name Unknown Organization [facility] Address [address] [place] [address] Phone [phone] Care Team Providers Care Allergist/Immunologist Name Role Phone Chio Simental MD Primary Care Provider [phone] Reason for Visit * Reason Onset Date Comments Medication Update 02/26/2024 Encounter Details Date Type Department Care Team (Latest Contact Info) Description 02/26/2024 6:00 PM EDT Scheduled Telephone Pharmacy Hematology Oncology [facility] [address] [place] [address] [facility] Hem/Onc [facility] [address] [place] [address] MDS (myelodysplastic syndrome) ([facility])* Allergies Active Allergy Reactions Criticality Noted Date Comments Ampicillin Rash Medium 09/04/2023 Codeine Rash 07/21/2023 Iodinated Contrast Media Itching,Rash 3 Penicillins Rash 09/01/2023 Swelling Red Dye Hives 07/21/2023 documented as of this encounter (statuses as of 02/26/2024) Medications Medication Sig Dispensed Refills Start Date End Date Status Procrit 12647 UNIT/ML Injection Solution (Epoetin Gabriel) Inject under [...] MG Oral Capsule (Revlimid)Indicatio ns:MDS (myelodysplastic syndrome) ([facility]) Take 2.5 mg by mouth in the [...] Active cloNIDine 0.3 MG/24HR Transdermal Patch Weekly (Qoatghpkx-Mcv-8)In dications:CKD (chronic kidney disease) stage 4, GFR [...] encounter Miscellaneous Notes * Telephone Encounter - Maryse Contreras CPhT - 02/26/2024 10:05 AM EDT Please refer to separate refill encounter Maryse Contreras Tooth Polisher III MTD Oral Chemotherapy Clinic 02/26/2024 10:05 AM documented in this encounter Plan of Treatment Upcoming Encounters Date Type Department Care Team (Late st Contact Info) Description 03/01/2024 12:10 PM EDT Laboratory Laboratory [place] [facility] Bautista [address] [place] [address] Elinor Barros [facility] [address] [place] [address] 03/01/2024 1:15 PM EDT Immunization/Injecti on Hematology/Oncology Treatment, [place] [address] [place] [phone] Nurse, Med [address] [place] [address] 03/01/2024 6:30 PM EDT Scheduled Telephone Pharmacy Hematology Oncology [facility] [address] [place] [address] [facility] Hem/Onc [place] [address] [place] [address] 03/09/2024 2:00 PM EDT Office Visit Hematology/Oncology [facility] Fiorella [place] [address] [place] [phone] Kaci Patterson MD 200 [facility] [place] [address] 03/15/2024 8:40 AM EDT Office Visit Sleep Disorders Ctr [facility] [place] [facility] [place] [phone] Mily Lau DO [facility] [place] [address] 03/15/2024 9:00 AM EDT Pharmacy Pharmacy Hematology Oncology [facility] [address] [place] [address] [facility] Hem/Onc [facility] [place], [place] [address] 04/04/2024 11:20 AM EDT Office Visit General Internal [facility] [place] [address] [place] [address] Chio Simental MD [address] [place] [address] 04/05/2024 11:40 AM EDT Office Visit Nephrology, [place] Barros [address] [place] [address] Tariq Pena MD [address] [place] [address] Health Maintenance Due Date Last Done Comments [...] unspecified documented in this encounter Care Teams Allergist/Immunologist Relationship Specialty Start Date End Date Chio Simental MD [address] [place] [address] PCP - General Internal Medicine 09/04/23 documented as of this encounter
--- OUTSIDE RECORDS SUMMARY | 2024-03-02 01:13 | External Medical Summary | Summary of Care ---
Author Name Unknown Organization [facility] Address [address] [place] [address] Phone [phone] Care Team Providers Care Mold Finisher Name Role Phone Chio Simental MD Primary Care Provider [phone] Reason for Visit * Reason Comments Nurse Documentation Hold Retacrit Encounter Details Date Type Department Care Team ([facility] st Contact Info) Description 02/23/2024 1:15 PM EDT Immunization/Inj ection Hematology/Oncology Treatment, [place] [address] [place] [address] Nurse, Med [address] [place] [address] Arrived Allergies Active Allergy Reactions Criticality Noted Date Comments Ampicillin Rash Medium 09/04/2023 Codeine Rash 07/21/2023 Iodinated Contrast Media Itching,Rash 3 Penicillins Rash 09/01/2023 Swelling Red Dye Hives 07/21/2023 documented as of this encounter (statuses as of 02/23/2024) Medications Medication Sig Dispensed Refills Start Date End Date Status Procrit 52906 UNIT/ML Injection Solution (Epoetin Gabriel) Inject under [...] 01/01/2024 Active Loratadine 10 MG Oral Tablet (Claritin)Chandanatio ns:Post-nasal drip,Bilateral chronic serous otitis media Take [...] MG Oral Capsule (Revlimid)Indicatio ns:MDS (myelodysplastic syndrome) ([facility]) Take 2.5 mg by mouth in the [...] Active cloNIDine 0.3 MG/24HR Transdermal Patch Weekly (Ajhzlmzjo-Bne-3)In dications:CKD (chronic kidney disease) stage 4, GFR [...] on file documented as of this encounter Nursing Notes * Helen Jarrell LPN - 02/23/2024 1:32 PM EDT Pt arrived for Retacrit injection. Hgb 10.3. Held per parameters. Pt to return in one week. Discharged in stable condition. documented in this encounter Plan of Treatment Upcoming Encounters Date Type Department Care Team (Late st Contact Info) Description 02/26/2024 6:00 PM EDT Scheduled Telephone Pharmacy Hematology Oncology [facility] [address] [place] [address] [facility] Hem/Onc Tech [address] [facility] [place] [address] 03/01/2024 12:10 PM EDT Laboratory Laboratory [facility] 200 [facility] [place] [phone] [place], [facility] 200 [facility] [place] [address] 03/01/2024 1:15 PM EDT Immunization/Injecti on Hematology/Oncology Treatment, [place] 200 [facility] [place] [phone] Nurse, Med 200 [facility] [place] [address] 03/09/2024 2:00 PM EDT Office Visit Hematology/Oncology [facility] [place] [address] [place] [phone] Kaci Patterson MD 200 [facility] [place] [address] 03/15/2024 8:40 AM EDT Office Visit Sleep Disorders Ctr Afsaneh [place] [address] [facility] [place] [phone] Mily Lau, [facility] [place] [address] 04/04/2024 11:20 AM EDT Office Visit General Internal Medicine [facility] [place] [address] [facility] [place] [address] Chio Simental MD 200 [facility] [place] [address] Health Maintenance Due Date Last Done Comments [...] Not on filedocumented as of this encounter Care Teams Mold Finisher Relationship Specialty Start Date End Date Chio Simental MD [address] [place] [address] PCP - General Internal Medicine 09/04/23 documented as of this encounter
--- OUTSIDE RECORDS SUMMARY | 2024-03-02 01:13 | External Medical Summary ---
Author Name Unknown Address Unknown Organization K09:[facility] [place] [address] Laboratory Report Ordering Provider Test Date Status LEYDA MENSAH 03/01/2024 12:59:52 Final Observation Date Value Abnormality Reference (Units ) Status SYNC LEUKOCYTES IN BLOOD BY AUTOMATED COUNT 03/01/2024 12:59:52 7.77 4.00-10.80 (K/uL) Final Neutrophils/100 leukocytes in Blood by Manual count 03/01/2024 12:59:52 76.0 Above high normal 40.0-75.0 (%) Final Lymphocytes/100 leukocytes in Blood by Manual count 03/01/2024 12:59:52 10.0 Below low normal 18.0-42.0 (%) Final Monocytes/100 leukocytes in Blood by Manual count 03/01/2024 12:59:52 14.0 Above high normal 1.0-11.0 (%) Final Neutrophils [#/volume] in Blood by Manual count 03/01/2024 12:59:52 5.91 1.80-7.70 (K/uL) Final Lymphocytes [#/volume] in Blood by Manual count 03/01/2024 12:59:52 0.78 Below low normal 1.00-4.80 (K/uL) Final Monocytes [#/volume] in Blood by Manual count 03/01/2024 12:59:52 1.09 0.00-1.10 (K/uL) Final Nucleated erythrocytes/100 leukocytes [Ratio] in Blood by Automated count 03/01/2024 12:59:52 1 Above high normal <=0 (/100 WBCs) Final Acanthocytes [Presence] in Blood by Light microscopy 03/01/2024 12:59:52 Moderate Abnormal None Seen Final [place] cells [Presence] in Blood by Light microscopy 03/01/2024 12:59:52 Moderate Abnormal None Seen Final Elliptocytes [Presence] in Blood by Light microscopy 03/01/2024 12:59:52 Moderate Abnormal None Seen Final Schistocytes 03/01/2024 12:59:52 Few Abnormal None Seen Final Performing Location [facility] [address] [place] [address]
[2024-03-02 01:14] LABS: Albumin Globulin Ratio 1.4 (0.9-2); Albumin Level 3.6 gm/dl (3.4-5.0); BUN Creatinine Ratio 13.4 (10-20); Bilirubin,Total 0.3 mg/dl (0.2-1.0); Creatinine Clr Calc Pharmacy 3.2 ml/min; Est GFR (African American) 3.1 ml/min; Est GFR (Non-African American) 2.7 ml/min; Globulin 2.5 gm/dl (2.5-4.0); Total Protein 6.1 gm/dl (6.0-8.3); Troponin I High Sensitivity 33.4 pg/ml (0-14)
--- OUTSIDE RECORDS SUMMARY | 2024-03-02 01:14 | External Medical Summary | Summary of Care ---
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) Allergies Active Allergy Reactions Criticality Noted Date Comments Ampicillin Rash Medium 09/04/2023 Codeine Rash 07/21/2023 Iodinated Contrast Media Itching,Rash 3 Penicillins Rash 09/01/2023 Swelling Red Dye Hives 07/21/2023 documented as of this encounter (statuses as of 02/23/2024) Medications Medication Sig Dispensed Refills Start Date End Date Status Procrit 48070 UNIT/ML Injection Solution (Epoetin Gabriel) Inject under [...] Active cloNIDine 0.3 MG/24HR Transdermal Patch Weekly (Tctwysuol-Mes-2)In dications:CKD (chronic kidney disease) stage 4, GFR [...] on file documented as of this encounter Plan of Treatment Upcoming Encounters Date Type Department Care Team (Late st Contact Info) Description 02/23/2024 1:15 PM EDT Immunization/Injecti on Hematology/Oncology Treatment, [place] [address] [place], [place] [phone] Nurse, Med 200 [place] [address] Arrived 02/26/2024 6:00 PM EDT Scheduled Telephone Pharmacy Hematology Oncology [facility] [address] [place] [address] [facility] Hem/Onc [facility] [address] [place] [address] 03/01/2024 12:10 PM EDT Laboratory Laboratory [facility] [place] 200 [facility] [place] [phone] Elinor Barros [facility] [address] [facility] [address] [place], [place] [address] 03/01/2024 1:15 PM EDT Immunization/Injecti on Hematology/Oncology Treatment, [place] 200 [facility] [place] [phone] Nurse, Med 200 [facility] [place] [address] 03/09/2024 2:00 PM EDT Office Visit Hematology/Oncology [facility] [place] [address] [facility] [place] [phone] Kaci Patterson MD 200 [facility] [place] [address] 03/15/2024 8:40 AM EDT Office Visit Sleep Disorders Ctr [facility] [place] [address] [facility] [place] [phone] Mily Lau, [address] [facility] [place] [address] 04/04/2024 11:20 AM EDT Office Visit General Internal Medicine [facility] [place] [address] [place], [place] [address] Chio Simental MD [address] [facility] [address] [place], [place] [address] Pending Results Name Type Priority Associated Diagnoses Date /Time CBC WITH WBC DIFFERENTIAL Lab STAT 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) 02/23/2024 12:33 PM EDT CBC Lab STAT 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) 02/23/2024 12:33 PM EDT DIFFERENTIAL, AUTOMATED Lab STAT 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
--- OUTSIDE RECORDS SUMMARY | 2024-03-02 01:14 | External Medical Summary ---
Author Name Unknown Address Unknown Organization [id number]:[facility] [address] [place] [address] Laboratory Report Ordering Provider Test Date Status LEYDA MENSAH 02/23/2024 12:33:11 Final Observation Date Value Abnormality Reference (Units ) Status SYNC LEUKOCYTES IN BLOOD BY AUTOMATED COUNT 02/23/2024 12:33:11 7.11 4.00-10.80 (K/uL) Final Neutrophils/100 leukocytes in Blood by Manual count 02/23/2024 12:33:11 70.0 40.0-75.0 (%) Final Lymphocytes/100 leukocytes in Blood by Manual count 02/23/2024 12:33:11 21.0 18.0-42.0 (%) Final Monocytes/100 leukocytes in Blood by Manual count 02/23/2024 12:33:11 5.0 1.0-11.0 (%) Final Metamyelocytes/100 leukocytes in Blood by Manual count 02/23/2024 12:33:11 4.0 Above high normal <=0.0 (%) Final Neutrophils [#/volume] in Blood by Manual count 02/23/2024 12:33:11 4.98 1.80-7.70 (K/uL) Final Lymphocytes [#/volume] in Blood by Manual count 02/23/2024 12:33:11 1.49 1.00-4.80 (K/uL) Final Monocytes [#/volume] in Blood by Manual count 02/23/2024 12:33:11 0.36 0.00-1.10 (K/uL) Final Metamyelocytes [#/volume] in Blood by Manual count 02/23/2024 12:33:11 0.28 Above high normal <=0.00 (K/uL) Final Nucleated erythrocytes/100 leukocytes [Ratio] in Blood by Automated count 02/23/2024 12:33:11 Final Acanthocytes [Presence] in Blood by Light microscopy 02/23/2024 12:33:11 Moderate Abnormal None Seen Final Conner cells [Presence] in Blood by Light microscopy 02/23/2024 12:33:11 Moderate Abnormal None Seen Final Elliptocytes [Presence] in Blood by Light microscopy 02/23/2024 12:33:11 Moderate Abnormal None Seen Final Schistocytes 02/23/2024 12:33:11 Few Abnormal None Seen Final Variant lymphocytes [Presence] in Blood by Light microscopy 02/23/2024 12:33:11 Present Abnormal None Seen Final Performing Location [facility] [id number] [place] [address]
--- OUTSIDE RECORDS SUMMARY | 2024-03-02 01:14 | External Medical Summary ---
Author Name Unknown Address Unknown Organization K09[facility] [place] [address] Laboratory Report Ordering Provider Test Date Status LEYDA MENSAH 02/23/2024 12:33:11 Final Observation Date Value Abnormality Reference (Units ) Status WBC, Total 02/23/2024 12:33:11 7.11 4.00-10.8 0 (K/uL) Final RBC 02/23/2024 12:33:11 4.20 3.85-5.15 (M/uL) Final Hemoglobin 02/23/2024 12:33:11 10.2 Below low normal 12 .0-15.3 (g/dL) Final HCT 02/23/2024 12:33:11 34.1 Below low normal 36. 0-45.2 (%) Final MCV 02/23/2024 12:33:11 81.2 81.5-97.5 (fL) Final MCH 02/23/2024 12:33:11 24.3 27.0-34.0 (pg) Final MCHC 02/23/2024 12:33:11 29.9 32.0-36.0 (g/dL) Final RDW 02/23/2024 12:33:11 24.3 11.5-15.5 (%) Final Platelets 02/23/2024 12:33:11 98 Below low normal 140 -400 (K/uL) Final MPV 02/23/2024 12:33:11 Final No result - abnormal platele t distribution. Performing Location [facility] [address] [place] [address]
[2024-03-02] MEDS: SODIUM BICARBONATE 8.4% 150 MEQ in DEXTROSE 5% 1,000 ML IV SCH (01:41)
--- NOTE | 2024-03-02 01:52 | History & Physical Report ---
Date of Service March 02, 2024 Assessment & Plan (1) Acute renal failure: Plan: 74-year-old female with past med history significant for hypomagnesia, obstructive sleep apnea on CPAP, hypertension, chronic diarrhea, CKD stage IV, myelodysplastic syndrome, anemia of chronic kidney disease, history of nephrolithiasis, history of breast cancer, presents with nausea /vomiting for the last few days and not able to eat comes to ER and found to have JAIRON, hyperkalemia and metabolic acidosis. Patient currently denies any diarrhea. She states she is micturating okay. Denies any fevers. Denies any abdominal pain. No chest pain. Denies shortness of breath. No fevers. No cough. No headache. Vision is okay. No runny nose or sore throat. Current resting comfortably and hemodynamically stable. Alert and oriented x 3. She states is taking chemo pill daily seems for myelodysplastic syndrome. JAIRON and chronically stage IV Baseline creatinine 3 Presented with creatinine of 12.4 Nephrology notified Getting bicarb drip If no improvement plan for dialysis Hyperkalemia Potassium of 7 Received insulin, dextrose, calcium carbonate and bicarb Currently on bicarb drip To Check labs every 2 hours No improvement plan for dialysis Hypocalcemia Received calcium gluconate Will follow labs follow vit D levels Expect levels to go down with bicarb drip per nephro and to replace. Metabolic acidosis From above On bicarb drip Will follow labs Nausea/vomiting and difficult to swallow Will check soft tissue neck CT scan History of myelodysplastic syndrome On Revlimid daily which will be held Follows with heme-onc Sleep apnea On CPAP nightly Mild elevation troponin Mostly from JAIRNO and CKD stage IV Will follow serial cardiac enzymes History of breast cancer diagnosed in 1989 treated with chemotherapy and surgery Anemia chronic kidney disease Hemoglobin 9.8 around baseline We will follow labs DVT prophylaxis SCDs for now Disposition ICU CODE STATUS Okay for CPR and shocks but no intubation as per my discussion with the patient History of Present Illness Chief Complaint: Nausea and vomiting and found to have JAIRON and hyperkalemia and metabolic acidosis Primary Care Provider: Chio Simental MD 74-year-old female with past med history significant for hypomagnesia, obstructive sleep apnea on CPAP, hypertension, chronic diarrhea, CKD stage IV, myelodysplastic syndrome, anemia of chronic kidney disease, history of nephrolithiasis, history of breast cancer, presents with nausea /vomiting for the last few days and not able to eat comes to ER and found to have JAIRON, hyperkalemia and metabolic acidosis. Patient currently denies any diarrhea. She states she is micturating okay. Denies any fevers. Denies any abdominal pain. No chest pain. Denies shortness of breath. No fevers. No cough. No headache. Vision is okay. No runny nose or sore throat. Current resting comfortably and hemodynamically stable. Alert and oriented x 3. She states is taking chemo pill daily for leukemia but per epic seems for myelodysplastic syndrome. Past medical history. As mentioned above Past surgical history. Left cystoscopy ureteral lithotripsy. Laparoscopic cholecystectomy. Left simple mastectomy. Right open repair of rotator cuff. Social history. No smoking. No alcohol use. No drug use. Family history no family history on file Allergies Allergy/AdvReac Type Severity Reaction Status Date / Time ampicillin Allergy Intermediate Rash Verified 03/01/24 20:08 codeine Allergy Intermediate Rash Verified 03/01/24 20:08 Iodinated Contrast Media Allergy Intermediate ITCHY RASH Verified 03/01/24 20:08 Penicillins Allergy Intermediate SWELLING Verified 03/01/24 20:08 red dye Allergy Intermediate Hives Verified 03/01/24 20:08 Home Medications Medication Instructions Recorded Confirmed Type labetalol 100 mg tablet 100 mg PO BID 09/09/23 03/01/24 History amlodipine 10 mg tablet 10 mg PO QAM 12/19/23 03/01/24 History cholecalciferol (vitamin D3) 25 25 mcg PO DAILY 03/01/24 03/01/24 History mcg (1,000 unit) capsule (Vitamin D3) fluticasone propionate 50 2 spray intranasal DAILY 03/01/24 03/01/24 History mcg/actuation nasal spray,suspension loratadine 10 mg tablet (Claritin) 10 mg PO HS 03/01/24 03/01/24 History Past Med/Surg History Medical History (Updated 03/02/24 @ 03:10 by TERESA Kumari) Leukemia High blood pressure Breast cancer Esophageal hernia Kidney failure History of fractured vertebra Surgical History H/O shoulder surgery History of left mastectomy Family History Other No pertinent family history Social History Smoking Status: Unknown if ever smoked Hx Alcohol Use: No Hx Substance Use: No Preferred Language: Arabic Communication Ability: Effective Cadastral Engineer Required: No Beliefs That Will Affect Care: None Current Living Situation: Spouse and Family Current Living Situation Comment: lives with and daughter current occupational status: retired Feels Safe at Home: Yes Safety Concerns: Feels Safe At This Time Assistive Devices: None Review of Systems Review of Systems: All systems reviewed & are unremarkable except as noted in HPI & below Physical Exam Physical Exam: General- Not in distress Head- atraumatic Eyes- PERRL. ENT- oropharynx clear Neck- supple, no JVD. Lungs- clear to auscultation no wheezing or crackles. Heart- regular rhythm; no murmur, no gallop. Abdomen- normal bowel sounds, soft, nontender, no distension. Extremities- no pretibial edema, no erythema seen Neuro- alert, oriented x 3; PERRL, no facial palsy; no dysarthria; motor 5/5 bilaterally; Results & Data Results & Data Vital Signs (Past 12 Hours) Vital Signs Temp Pulse Pulse Resp BP BP Pulse Ox 03/02/24 00:03 96 H 26 H 175/85 H 98 03/01/24 23:20 99 H 03/01/24 22:00 100 H 22 98 03/01/24 21:50 99 H 17 98 03/01/24 21:40 97 H 16 99 03/01/24 21:30 109 H 16 03/01/24 21:10 96 H 22 94 03/01/24 21:00 97 H 17 96 03/01/24 20:50 98 H 12 96 03/01/24 20:40 97 H 16 03/01/24 20:33 94 H 03/01/24 20:30 107 H 22 97 03/01/24 20:20 93 H 19 96 03/01/24 20:14 165/78 H 03/01/24 20:14 92 H 23 96 03/01/24 20:10 95 H 17 94 03/01/24 20:00 92 H 20 100 03/01/24 20:00 98 03/01/24 19:50 93 H 18 03/01/24 19:40 92 H 16 03/01/24 19:30 93 H 16 03/01/24 19:28 99 H 16 166/78 H 98 03/01/24 19:20 96 H 16 03/01/24 19:19 93 H 24 98 03/01/24 17:32 36.9 C 93 H 20 195/108 H 97 O2 Del Method 03/02/24 00:03 Room Air 03/01/24 23:20 03/01/24 22:00 03/01/24 21:50 03/01/24 21:40 03/01/24 21:30 03/01/24 21:10 03/01/24 21:00 03/01/24 20:50 03/01/24 20:40 03/01/24 20:33 03/01/24 20:30 03/01/24 20:20 03/01/24 20:14 03/01/24 20:14 03/01/24 20:10 03/01/24 20:00 03/01/24 20:00 Room Air 03/01/24 19:50 03/01/24 19:40 03/01/24 19:30 03/01/24 19:28 03/01/24 19:20 03/01/24 19:19 03/01/24 17:32 Room Air Diagnostic Findings Laboratory Results WBC 9.02 K/ul (4.8-10.8) 03/01/24 21:27 WBC Cancelled 03/01/24 21:27 RBC 4.13 M/uL (4.20-5.40) L 03/01/24 21:27 RBC Cancelled 03/01/24 21:27 Hgb 9.8 g/dl (12.0-16.0) L 03/01/24 21:27 Hgb Cancelled 03/01/24 21:27 Hct 33.8 % (37.0-47.0) L 03/01/24 21: Hct Cancelled 03/01/24 21:27 MCV 81.8 fL (80.0-100.0) 03/01/24 21:27 MCV Cancelled 03/01/24 21: MCH 23.7 pg (25.0-34.0) L 03/01/24 21:27 MCH Cancelled 03/01/24 21:27 MCHC 29.0 g/dL (32.0-36.0) L 03/01/24 21:27 MCHC Cancelled 03/01/24 21: RDW Std Deviation 70.2 fL (36.4-46.3) H 03/01/24 21: RDW Std Deviation Cancelled 03/01/24: RDW Coeff of Tosha 24.0 % (11.5-14.5) H 03/01/24 21: RDW Coeff of Tosha Cancelled 03/01/24 21: Plt Count 193 K/uL (130-400) 03/01/24 21: Plt Count Cancelled 03/01/24 21:27 MPV Cancelled 03/01/24 21: Immature Gran % (Auto) 4.7 % 03/01/24 21: Immature Gran % (Auto) Cancelled 03/01/24 21: Neut % (Auto) 69.5 % 03/01/24 21: Neut % (Auto) Cancelled 03/01/24 21:27 Lymph % (Auto) 11.5 % 03/01/24 21:27 Lymph % (Auto) Cancelled 03/01/24 21:27 Rush % (Auto) 13.1 % 03/01/24 21:27 Rush % (Auto) Cancelled 03/01/24 21:27 Eos % (Auto) 0.6 % 03/01/24 21:27 Eos % (Auto) Cancelled 03/01/24 21:27 Baso % (Auto) 0.6 % 03/01/24 21: Baso % (Auto) Cancelled 03/01/24 21:27 Neut # (Auto) 6.28 K/uL (1.40-6.50) 03/01/24 21:27 Neut # (Auto) Cancelled 03/01/24 21:27 Lymph # (Auto) 1.04 K/uL (1.20-3.40) L 03/01/24 21:27 Lymph # (Auto) Cancelled 03/01/24 21:27 Rush # (Auto) 1.18 K/uL (0.11-0.59) H 03/01/24 21:27 Rush # (Auto) Cancelled 03/01/24 21:27 Eos # (Auto) 0.05 K/uL (0.00-0.50) 03/01/24 21:27 Eos # (Auto) Cancelled 03/01/24 21:27 Baso # (Auto) 0.05 K/uL (0.00-0.20) 03/01/24 21:27 Baso # (Auto) Cancelled 03/01/24 21:27 Immature Gran # (Auto) 0.42 K/uL (0.01-0.20) H 03/01/24 21:27 Immature Gran # (Auto) Cancelled 03/01/24 21:27 Absolute Nucleated RBC 0.03 K/uL (0.00-0.12) 03/01/24 21:27 Absolute Nucleated RBC Cancelled 03/01/24 21:27 Nucleated RBC % (auto) 0.3 % 03/01/24 21:27 Nucleated RBC % (auto) Cancelled 03/01/24 21:27 Neutrophils % (Manual) Cancelled 03/01/24 21:27 Band Neutrophils % Cancelled 03/01/24 21:27 Lymphocytes % (Manual) Cancelled 03/01/24 21:27 Prolymphocyte % Cancelled 03/01/24 21:27 Reactive Lymphs % (Man) Cancelled 03/01/24 21:27 Monocytes % (Manual) Cancelled 03/01/24 21:27 Eosinophils % (Manual) Cancelled 03/01/24 21:27 Basophils % (Manual) Cancelled 03/01/24 21:27 Metamyelocytes % (Man) Cancelled 03/01/24 21:27 Myelocytes % (Man) Cancelled 03/01/24 21:27 Promyelocytes % (Man) Cancelled 03/01/24 21:27 Blast Cells % (Manual) Cancelled 03/01/24 21:27 Plasma Cell % (Manual) Cancelled 03/01/24 21:27 Other Cells % Cancelled 03/01/24 21:27 Nucleated RBC % Cancelled 03/01/24 21:27 Neutrophils # (Manual) Cancelled 03/01/24 21:27 Band Neutrophils # Cancelled 03/01/24 21:27 Total Absolute Neuts Cancelled 03/01/24 21:27 Lymphocytes # (Manual) Cancelled 03/01/24 21:27 Prolymphocyte # Cancelled 03/01/24 21:27 Reactive Lymphs # Cancelled 03/01/24 21:27 Total Abs Lymphocytes Cancelled 03/01/24 21:27 Monocytes # (Manual) Cancelled 03/01/24 21:27 Eosinophils # (Manual) Cancelled 03/01/24 21:27 Basophils # (Manual) Cancelled 03/01/24 21:27 Metamyelocytes # (Man) Cancelled 03/01/24 21:27 Myelocytes # (Manual) Cancelled 03/01/24 21:27 Promyelocytes # (Man) Cancelled 03/01/24 21:27 Blast Cells # (Man) Cancelled 03/01/24 21:27 Plasma Cell # (Manual) Cancelled 03/01/24 21:27 Other Cells # Cancelled 03/01/24 21:27 Nucleated RBCs # (Man) Cancelled 03/01/24 21:27 Hypersegmented Neuts Cancelled 03/01/24 21:27 Hyposegmented Neuts Cancelled 03/01/24 21:27 Hypogranular Neuts Cancelled 03/01/24 21:27 Large Granular Lymphs Cancelled 03/01/24 21:27 # Lrg Granular Lymphs Cancelled 03/01/24 21:27 Hairy Cells Cancelled 03/01/24 21:27 Smudge Cells Cancelled 03/01/24 21:27 Toxic Granulation Cancelled 03/01/24 21:27 Toxic Vacuolation Cancelled 03/01/24 21:27 Dohle Bodies Cancelled 03/01/24 21:27 Tito Rods Cancelled 03/01/24 21:27 Platelet Estimate Cancelled 03/01/24 21:27 Hypogranular Platelets Cancelled 03/01/24 21:27 Giant Platelets Cancelled 03/01/24 21:27 Platelet Satelliting Cancelled 03/01/24 21:27 RBC Morphology Cancelled 03/01/24 21:27 Polychromasia Cancelled 03/01/24 21:27 Hypochromasia Cancelled 03/01/24 21:27 Poikilocytosis Cancelled 03/01/24 21:27 Basophilic Stippling Cancelled 03/01/24 21:27 Anisocytosis Cancelled 03/01/24 21:27 Anisocytosis Present 03/01/24 21:27 Microcytosis Cancelled 03/01/24 21:27 Macrocytosis Cancelled 03/01/24 21:27 Spherocytes Cancelled 03/01/24 21:27 Pappenheimer Bodies Cancelled 03/01/24 21:27 Sickle Cells Cancelled 03/01/24 21:27 Target Cells Cancelled 03/01/24 21:27 Tear Drop Cells 1+ 03/01/24 21:27 Tear Drop Cells Cancelled 03/01/24 21:27 Ovalocytes 1+ 03/01/24 21:27 Ovalocytes Cancelled 03/01/24 21:27 Stomatocytes Cancelled 03/01/24 21:27 Campuzano-Muncy Bodies Cancelled 03/01/24 21:27 Echinocytes 1+ 03/01/24 21:27 Echinocytes Cancelled 03/01/24 21:27 Acanthocytes (Spur) 2+ 03/01/24 21:27 Acanthocytes (Spur) Cancelled 03/01/24 21:27 Rouleaux Cancelled 03/01/24 21:27 RBC Agglutinates Cancelled 03/01/24 21:27 Schistocytes Cancelled 03/01/24 21:27 Sezary Cell Cancelled 03/01/24 21:27 Sodium 135 mmol/L (136-145) L 03/01/24 23:38 Potassium 7.0 mmol/L (3.5-5.1) H* 03/01/24 23:38 Chloride 109 mmol/L (98-107) H 03/01/24 23:38 Carbon Dioxide 7 mmol/L (21-32) L* 03/01/24 23:38 Anion Gap 19 (3-11) H 03/01/24 23:38 BUN 167 mg/dl (6-23) H 03/01/24 23:38 Creatinine 12.43 mg/dl (0.6-1.2) H* 03/01/24 23:38 Est Cr Clr Drug Dosing 3.2 ml/min 03/01/24 23:38 Est GFR ( Amer) 3.1 ml/min 03/01/24 23:38 Est GFR (Non-Af Amer) 2.7 ml/min 03/01/24 23:38 BUN/Creatinine Ratio 13.4 (10-20) 03/01/24 23:38 Glucose 120 mg/dl (70-99(Fasting)) H 03/01/24 23:38 Lactate 0.6 mmol/L (0.4-2.0) 03/01/24 21:27 Calcium 6.0 mg/dl (8.6-10.3) L 03/01/24 23:38 Total Bilirubin 0.3 mg/dl (0.2-1.0) 03/01/24 23:38 AST 8 U/L (13-39) L 03/01/24 23:38 ALT 8 U/L (7-52) 03/01/24 23:38 Alkaline Phosphatase 57 U/L (34-104) 03/01/24 23:38 Troponin I High Sens 33.4 pg/ml (0-14) H 03/01/24 23:38 Total Protein 6.1 gm/dl (6.0-8.3) 03/01/24 23:38 Albumin 3.6 gm/dl (3.4-5.0) 03/01/24 23:38 Globulin 2.5 gm/dl (2.5-4.0) 03/01/24 23:38 Albumin/Globulin Ratio 1.4 (0.9-2) 03/01/24 23:38 Lipase 490 U/L (11-82) H 03/01/24 21:27 Blood Parasites ID Cancelled 03/01/24 21:27 Impressions Abdomen/Pelvis CT 03/01/24 23:23 Exam(s): CT ABDOMEN + PELVIS Without Contrast EXAM: CT Abdomen and Pelvis Without Intravenous Contrast CLINICAL HISTORY: Reason for exam: intractable N/V, ARF. TECHNIQUE: Axial computed tomography images of the abdomen and pelvis without intravenous contrast. CTDI is 10.65 mGy and DLP is 482.37 mGy-cm. Automated exposure control was utilized for the study. A dose lowering technique was utilized adhering to the principles of ALARA. COMPARISON: No relevant prior studies available. FINDINGS: Lung bases: Unremarkable. No mass. No consolidation. ABDOMEN: Liver: Unremarkable. Gallbladder and bile ducts: Cholecystectomy. No ductal dilation. Pancreas: Unremarkable. No ductal dilation. Spleen: Unremarkable. No splenomegaly. Adrenals: Unremarkable. No mass. Kidneys and ureters: Unremarkable. No hydronephrosis or nephrolithiasis. Stomach and bowel: Diverticulosis, without acute diverticulitis. No small bowel obstruction. No free intraperitoneal air. PELVIS: Appendix: Normal appendix. Bladder: Unremarkable. No stones. Reproductive: RIGHT ovarian cyst measures 2.4 x 2.0 cm. ABDOMEN and PELVIS: Intraperitoneal space: Unremarkable. No free air. No significant fluid collection. Bones/joints: Degenerative changes of the spine. No acute fracture. No dislocation. Soft tissues: Unremarkable. Vasculature: Atherosclerotic changes of the aorta. No abdominal aortic aneurysm. Lymph nodes: Unremarkable. No enlarged lymph nodes. IMPRESSION: 1. No hydronephrosis or nephrolithiasis. 2. Normal appendix. 3. Cholecystectomy. 4. RIGHT ovarian cyst measures 2.4 x 2.0 cm. 5. Diverticulosis, without acute diverticulitis. No small bowel obstruction. No free intraperitoneal air. Electronically signed by: Jordin Perez MD 03/02/24 00:29 AM ECG Additional Comments: ECG. Normal sinus rhythm rate of 94. Left ventricle hypertrophy.
--- NOTE | 2024-03-02 02:53 | Critical Care Consultation ---
Date of Consultation March 02, 2024 Assessment & Plan (1) Acute hyperkalemia: (2) Acute renal failure: (3) Vomiting: (4) High blood pressure: (5) Leukemia: Plan Reason Critically Ill: 74 YOF presents in ARF with hyperkalemia and metabolic acidosis as well as other electrolyte disturbances in setting of nausea/vomiting with attempts at solid food intake. Neuro - No acute needs at this time CAM ICU: NEGATIVE - follow with renal function as well as acidosis Cardiac - HTN, - Continue with amlodipine - Hold labetalol with renal function Respiratory - No acute needs GI - Dysphagia without odynophagia and inability to swallow solids - Non con CT scan of neck eval for any mass - Consider barium swallow if CT scan of neck negative or further GI evaluation as appropriate RENAL/LYTES - ARF, Hyperkalemia, AGAP Metabolic Acidosis - Unsure of etiology of ARF at this time- she reports no new medication changes, she is with adequate MAPS and no other evidence of heart failure, likely meghan dequate PO intake - Volume status - low, acid base status acceptable, electrolytes borderline - has not made urine yet - however will place catheter check protein and frank/ucrt - urine tox screen - salicylate level - hold oral chemo - gap is likely ketosis and uremia-consider thiamine - No acute needs - as above- CT abdomen/pelvis was without obstructive pathology ENDO - No acute needs HEME - myelodysplastic syndrome - hold REvlimid with renal function - defer to primary service with access to her heme/onc records - with adequate WBC, HGB, PLT counts currently ID - no concern at this time for acute infective process LINES/IV ACCESS - nanette GABRIEL Continue use of these lines - may need dialysis line DVT PROPHYLAXIS - SCDS, Heparin 5000 units subq DISPO: ICU until metabolic and electrolytes are proven stable I have personally spent 50 minutes of critical care time in the direct management of this patient. This is a life/limb threatening event. This includes time spent evaluating patient, direct bedside care, chart review, placing orders, interpretation of diagnostic studies, discussion with consultants, patient, and family members, as well as other required patient management activities. This time is exclusive of all separately billable procedures, and teaching time and separate from and in addition to any other critical care service time. Thank you for allowing us to participate in the care of this patient. Please refer to my attending physician's documentation for any further recommendations. Supervising Physician Co-Signing Physician Notes Patient seen and examined. EMR reviewed. Discussed with critical care MARY and with bedside critical care nurse and on multidisciplinary rounds. Patient with acute on chronic renal failure and refractory metabolic acidosis with hyperkalemia. She has significant uremia with mild encephalopathy. Dialysis is warranted. Will discuss with vascular surgery as to whether or not a permacath can be placed as this would be a better option than a temporary dialysis catheter as the patient could not go home with a temporary catheter but could go home with tunneled permacath. Will keep her n.p.o. and await vascular surgery and nephrology input. Continue bicarb infusion. Following potassium. Once dialysis is accomplished, the patient can likely transfer out of the intensive care unit. Critical care services will sign off at that point in time History of Present Illness Reason for Consultation: ARF with hyperkalemia Requesting Physician: Cristo Aguirre MD Attending Physician: Cristo Aguirre History of Present Illness 74 YOF with medical history of: VIPIN, HTN, CKD IV, Myelodysplastic syndrome, AOCD, breast cancer. She is on daily oral chemotherapy at home. Patient presents to the EMD for what she reports to me as 8-10 days of nausea and vomiting with inability to swallow solid foods. She reports that she has just been able to tolerate water and has not tried any shakes or supplements. She feels that it just makes her want to throw up and is without pain or feeling of anything getting stuck. In the EMD she had routine labs performed that was notable for COMPUTER NETWORKER increase to 12.4 from her baseline of 3, hyperkalemia to 6 and then increase to 7, and HCO3 of 7. She reports that she is still making urine. In the EMD patient received Ca gluconate 1 GM, insulin 10 units with D50, and bicarb. She had CT of abdomen and pelvis with no acute pathology. Nephrology was consulted through EMD with recommendations of following labs q2 hours and initiation of isotonic HCO3 infusion. Patient does appear hypovolemic on exam, she has not made urine at this time. Patient will be admitted to the ICU for following of acid base status, and electrolytes particularly potassium. On evaluation potassium has not been evaluated since 2300 following treatment- will check stat BMP now (0300). CODE: Conditional - NO INTUBATION Allergies Allergy/AdvReac Type Severity Reaction Status Date / Time ampicillin Allergy Intermediate Rash Verified 03/01/24 20:08 codeine Allergy Intermediate Rash Verified 03/01/24 20:08 Iodinated Contrast Media Allergy Intermediate ITCHY RASH Verified 03/01/24 20:08 Penicillins Allergy Intermediate SWELLING Verified 03/01/24 20:08 red dye Allergy Intermediate Hives Verified 03/01/24 20:08 Home Medications Medication Instructions Recorded Confirmed Type labetalol 100 mg tablet 100 mg PO BID 09/09/23 03/01/24 History amlodipine 10 mg tablet 10 mg PO QAM 12/19/23 03/01/24 History cholecalciferol (vitamin D3) 25 25 mcg PO DAILY 03/01/24 03/01/24 History mcg (1,000 unit) capsule (Vitamin D3) fluticasone propionate 50 2 spray intranasal DAILY 03/01/24 03/01/24 History mcg/actuation nasal spray,suspension loratadine 10 mg tablet (Claritin) 10 mg PO HS 03/01/24 03/01/24 History Patient History Medical History (Updated 03/02/24 @ 03:10 by TERESA Kumari) Leukemia High blood pressure Breast cancer Esophageal hernia Kidney failure History of fractured vertebra Surgical History H/O shoulder surgery History of left mastectomy Family History Other No pertinent family history Social History Smoking Status: Unknown if ever smoked Hx Alcohol Use: No Hx Substance Use: No Preferred Language: Khmer Communication Ability: Effective Heel Seat Flap Stapler Required: No Beliefs That Will Affect Care: None Current Living Situation: Spouse and Family Current Living Situation Comment: lives with and daughter current occupational status: retired Feels Safe at Home: Yes Safety Concerns: Feels Safe At This Time Assistive Devices: None Review of Systems Review of Systems: REVIEW OF SYSTEMS: Constitutional: No fever, sweats or chills Eyes: No diplopia, no worsening or blurred vision ENT: (+) trouble swallowing, normal hearing Respiratory: No cough, sputum, dyspnea at rest or on exertion Cardiovascular: No chest pain, tightness or palpitations Abdomen: (+) nausea, vomiting,No pain, diarrhea or constipation Musculoskeletal: No joint pain, calf pain, swelling Neurologic: No weakness, numbness/tingling, or balance problems Psychiatric: (+) anxiety or depression Skin: No rash or itch Physical Exam Physical Exam: PHYSICAL EXAM: General: awake, alert, flat affect Head: Normocephalic, atraumatic ENT: PERRL, EOMI, no pharyngeal exudate, mucous membranes dry Neuro: AAO x 3, speech clear and appropriate, strength intact bilaterally 5/5, sensation intact and equal all extremities and dermatomes, no pronator drift Chest: equal rise and fall of the chest, no accessory muscle use, no heaves or thrills, Clear to auscultation, on room air, Cardiac: Regular rate and rhythm, telemetry reviewed- NSR, skin warm dry, cap refill <3 seconds, peripheral pulses +2 no JVD, no murmur, no edema GI: NABS x 4 quadrants, soft, nontender to palpation, no rebound, guarding or tenderness : Spontaneously voiding, no pain, no CVA tenderness, Skin: no rash or erythema Results & Data Results & Data Vital Signs (Past 12 Hours) Vital Signs Temp Pulse Pulse Resp BP BP Pulse Ox 03/02/24 00:03 96 H 26 H 175/85 H 98 03/01/24 23:20 99 H 03/01/24 22:00 100 H 22 98 03/01/24 21:50 99 H 17 98 03/01/24 21:40 97 H 16 99 03/01/24 21:30 109 H 16 03/01/24 21:10 96 H 22 94 03/01/24 21:00 97 H 17 96 03/01/24 20:50 98 H 12 96 03/01/24 20:40 97 H 16 03/01/24 20:33 94 H 03/01/24 20:30 107 H 22 97 03/01/24 20:20 93 H 19 96 03/01/24 20:14 165/78 H 03/01/24 20:14 92 H 23 96 03/01/24 20:10 95 H 17 94 03/01/24 20:00 92 H 20 100 03/01/24 20:00 98 03/01/24 19:50 93 H 18 03/01/24 19:40 92 H 16 03/01/24 19:30 93 H 16 03/01/24 19:28 99 H 16 166/78 H 98 03/01/24 19:20 96 H 16 03/01/24 19:19 93 H 24 98 03/01/24 17:32 36.9 C 93 H 20 195/108 H 97 O2 Del Method 03/02/24 00:03 Room Air 03/01/24 23:20 03/01/24 22:00 03/01/24 21:50 03/01/24 21:40 03/01/24 21:30 03/01/24 21:10 03/01/24 21:00 03/01/24 20:50 03/01/24 20:40 03/01/24 20:33 03/01/24 20:30 03/01/24 20:20 03/01/24 20:14 03/01/24 20:14 03/01/24 20:10 03/01/24 20:00 03/01/24 20:00 Room Air 03/01/24 19:50 03/01/24 19:40 03/01/24 19:30 03/01/24 19:28 03/01/24 19:20 03/01/24 19:19 03/01/24 17:32 Room Air Laboratory Results Abnormal lab results 03/01/24 03/01/24 Range/Units 21:27 23:38 RBC 4.13 L (4.20-5.40) M/uL Hgb 9.8 L (12.0-16.0) g/dl Hct 33.8 L (37.0-47.0) % MCH 23.7 L (25.0-34.0) pg MCHC 29.0 L (32.0-36.0) g/dL RDW Std Deviation 70.2 H (36.4-46.3) fL RDW Coeff of Tsoha 24.0 H (11.5-14.5) % Lymph # (Auto) 1.04 L (1.20-3.40) K/uL [facility] [facility] # (Auto) 1.18 H (0.11-0.59) K/uL Immature Gran # (Auto) 0.42 H (0.01-0.20) K/uL Sodium 135 L (136-145) mmol/L Potassium 6.3 H* 7.0 H* (3.5-5.1) mmol/L Chloride 110 H 109 H (98-107) mmol/L Carbon Dioxide 7 L* 7 L* (21-32) mmol/L Anion Gap 19 H 19 H (3-11) BUN 161 H 167 H (6-23) mg/dl Creatinine 12.33 H* 12.43 H* (0.6-1.2) mg/dl Glucose 104 H 120 H (70-99(Fasting)) mg/dl Calcium 5.9 L* 6.0 L (8.6-10.3) mg/dl AST 8 L 8 L (13-39) U/L Troponin I High Sens 35.9 H 33.4 H (0-14) pg/ml Lipase 490 H (11-82) U/L Diagnostic Findings Abdomen/Pelvis CT 03/01/24 23:23 Exam(s): CT ABDOMEN + PELVIS Without Contrast EXAM: CT Abdomen and Pelvis Without Intravenous Contrast CLINICAL HISTORY: Reason for exam: intractable N/V, ARF. TECHNIQUE: Axial computed tomography images of the abdomen and pelvis without intravenous contrast. CTDI is 10.65 mGy and DLP is 482.37 mGy-cm. Automated exposure control was utilized for the study. A dose lowering technique was utilized adhering to the principles of ALARA. COMPARISON: No relevant prior studies available. FINDINGS: Lung bases: Unremarkable. No mass. No consolidation. ABDOMEN: Liver: Unremarkable. Gallbladder and bile ducts: Cholecystectomy. No ductal dilation. Pancreas: Unremarkable. No ductal dilation. Spleen: Unremarkable. No splenomegaly. Adrenals: Unremarkable. No mass. Kidneys and ureters: Unremarkable. No hydronephrosis or nephrolithiasis. Stomach and bowel: Diverticulosis, without acute diverticulitis. No small bowel obstruction. No free intraperitoneal air. PELVIS: Appendix: Normal appendix. Bladder: Unremarkable. No stones. Reproductive: RIGHT ovarian cyst measures 2.4 x 2.0 cm. ABDOMEN and PELVIS: Intraperitoneal space: Unremarkable. No free air. No significant fluid collection. Bones/joints: Degenerative changes of the spine. No acute fracture. No dislocation. Soft tissues: Unremarkable. Vasculature: Atherosclerotic changes of the aorta. No abdominal aortic aneurysm. Lymph nodes: Unremarkable. No enlarged lymph nodes. IMPRESSION: 1. No hydronephrosis or nephrolithiasis. 2. Normal appendix. 3. Cholecystectomy. 4. RIGHT ovarian cyst measures 2.4 x 2.0 cm. 5. Diverticulosis, without acute diverticulitis. No small bowel obstruction. No free intraperitoneal air. Electronically signed by: Jordin Perez MD 03/02/24 00:29 AM Medications Administered Sodium Bicarbonate 150 meq/ (Dextrose) 1,150 mls @ 125 mls/hr IV .Q9H12M ANTIONETTE Stop: 04/01/24 00:59 Last Admin: 03/02/24 01:41 Dose: 125 mls/hr Documented By: HERACLIO Discontinued Medications Dextrose (Dextrose 50% 50 Ml Syringe) 50 ml IV NOW ONE Stop: 03/02/24 00:31 Last Admin: 03/02/24 00:51 Dose: 50 ml Documented By: HERACLIO Sodium Chloride (Nss) 500 mls @ 999 mls/hr IV .Q31M STA Stop: 03/01/24 18:03 Last Infusion: 03/01/24 20:54 Dose: Infused Documented By: Admin: 03/01/24 20:11 Dose: 999 mls/hr Documented By: RAMILA Sodium Chloride (Nss) 1,000 mls @ 125 mls/hr IV .Q8H ANTIONETTE Stop: 03/31/24 23:29 Last Admin: 03/02/24 00:06 Dose: 125 mls/hr Documented By: HERACLIO Calcium Gluconate () 1,000 mg in 60 mls @ 240 mls/hr IV NOW STA Stop: 03/02/24 00:44 Last Infusion: 03/02/24 01:19 Dose: Infused Documented By: numerical control programmer: 03/02/24 00:59 Dose: 240 mls/hr Documented By: HERACLIO Insulin Human Regular (Novolin-R Insulin Per Unit Charge) 10 units IV NOW STA Stop: 03/02/24 00:31 Last Admin: 03/02/24 00:47 Dose: 10 units Documented By: HERACLIO Co-signed By: JARAD Ondansetron HCl (Ondansetron Inj 2 Mg/Ml 2 Ml Vial) 4 mg IV NOW STA Stop: 03/01/24 17:34 Last Admin: 03/01/24 20:11 Dose: 4 mg Documented By: RAMILA Ondansetron HCl (Ondansetron Inj 2 Mg/Ml 2 Ml Vial) Confirm Administered Dose 4 mg .ROUTE .ST-MED ONE Stop: 03/01/24 20:10 Last Admin: 03/01/24 20:11 Dose: Not Given Documented By: RAMILA Ondansetron HCl (Ondansetron Inj 2 Mg/Ml 2 Ml Vial) 4 mg IV NOW STA Stop: 03/01/24 21:29 Last Admin: 03/01/24 21:32 Dose: 4 mg Documented By: RAMILA Sodium Bicarbonate (Sodium Bicarb 8.4% Inj 50 Meq/50 Ml Syr) 50 meq IV NOW STA Stop: 03/02/24 00:31 Last Admin: 03/02/24 00:53 Dose: 50 meq Documented By: HERACLIO ECG Additional Comments: Normal sinus rhythm Left ventricular hypertrophy with repolarization abnormality ( R in aVL , [place] product ) Abnormal ECG No previous ECGs available Coding Level of Care Code 78480 CRITICAL CARE 1ST 30-74M Diagnoses Acute hyperkalemia E87.5 Acute renal failure N17.9 Vomiting R11.10 High blood pressure I10 Leukemia C95.90
[2024-03-02] MEDS: STAT IV/IM STA (03:43)
[2024-03-02 04:33] LABS: Anisocytosis Present; Basophils # (auto) 0.05 K/uL (0.00-0.20); Basophils % (auto) 0.8 %; Echinocytes 1+; Eosinophils # (auto) 0.03 K/uL (0.00-0.50); Eosinophils % (auto) 0.5 %; Hematocrit (blood only) 34.7 % (37.0-47.0); Hemoglobin 10.1 g/dl (12.0-16.0); Immature Granulocytes # (auto) 0.35 K/uL (0.01-0.20); Immature Granulocytes % (auto) 5.6 %; Lymphocytes # (auto) 0.79 K/uL (1.20-3.40); Lymphocytes % (auto) 12.7 %; Mean Corpuscular Hemoglobin 23.5 pg (25.0-34.0); Mean Corpuscular Hgb Conc 29.1 g/dL (32.0-36.0); Mean Corpuscular Volume 80.9 fL (80.0-100.0); Monocytes % (auto) 14.5 %; Neutrophils # (auto) 4.09 K/uL (1.40-6.50); Neutrophils % (auto) 65.9 %; Nucleated RBC # (auto) 0.03 K/uL (0.00-0.12); Nucleated RBC % (auto) 0.5 %; Platelet Count 144 K/uL (130-400); Polychromasia 1+; RDW Coefficient of Variation 23.6 % (11.5-14.5); RDW Standard Deviation 68.5 fL (36.4-46.3); Red Blood Count 4.29 M/uL (4.20-5.40); Tear Drop Cells 1+; White Blood Count 6.21 K/ul (4.8-10.8)
[2024-03-02 04:42] LABS: BUN Creatinine Ratio 13.9 (10-20); Calcium 5.9 mg/dl (8.6-10.3); Creatinine Clr Calc Pharmacy 3.2 ml/min; Est GFR (African American) 3.1 ml/min; Est GFR (Non-African American) 2.7 ml/min; Potassium 6.2 mmol/L (3.5-5.1)
[2024-03-02] MEDS ORDERED: STAT IV/IM STA ×2 (04:43→10:23)
[2024-03-02] MEDS: ALBUTEROL 0.5% NEB SOLN 2.5 MG/0.5 ML VIAL NEB STA (04:58)
--- NOTE | 2024-03-02 05:06 | CT Scan Report ---
Exam(s): CT NECK Without Contrast EXAM: CT Neck Without Intravenous Contrast CLINICAL HISTORY: Reason for exam: nausea and gagging. any mass.. TECHNIQUE: Axial computed tomography images of the neck without intravenous contrast. CTDI is 12.12 mGy and DLP is 361.6 mGy-cm. Automated exposure control was utilized for the study. A dose lowering technique was utilized adhering to the principles of ALARA. COMPARISON: No relevant prior studies available. FINDINGS: Oropharynx: Unremarkable. No significant tonsillar enlargement. Hypopharynx: Unremarkable. Larynx: Unremarkable. Normal epiglottis. Trachea: Unremarkable. Retropharyngeal space: Unremarkable. Submandibular/parotid glands: Unremarkable. Glands are normal in size. Thyroid: Small to tiny bilateral thyroid nodules. No enlarged or calcified nodules. Bones/joints: No acute fracture. There is a critical spinal canal stenosis at C4. Soft tissues: Unremarkable. Vasculature: No acute findings. Lymph nodes: Unremarkable. No lymphadenopathy. Lung apices: Unremarkable as visualized. IMPRESSION: No evidence of acute cervical soft tissue pathology. Critical spinal canal stenosis at C4 with impingement of the ventral cord, which can cause swallowing abnormalities. Recommend MRI of the cervical spine to evaluate for myelopathy. Electronically signed by: Sammie Adams MD 03/02/24 05:04 AM
--- OUTSIDE RECORDS SUMMARY | 2024-03-02 05:34 | External Medical Summary | Summary of Care ---
Author Name Unknown Organization [facility] Address [address] [place] [address] Phone [phone] Care Team Providers Care Principal Clerk Typist Name Role Phone Chio Simental MD Primary Care Provider Reason for Visit * Reason Onset Date Comments Advice 03/01/2024 Encounter Details Date Type Department Care Team ([facility] Contact Info) Description 03/01/2024 Telephone Hematology/Oncology Harjinder Fiorella [place] [address] [place] [address] Kaci Patterson MD [address] [place] [id number] Advice Allergies Active Allergy Reactions Criticality Noted Date Comments Ampicillin Rash Medium 09/04/2023 Codeine Rash 07/21/2023 Iodinated Contrast Media Itching,Rash 3 Penicillins Rash 09/01/2023 Swelling Red Dye Hives 07/21/2023 documented as of this encounter (statuses as of 03/01/2024) Medications Medication Sig Dispensed Refills Start Date End Date Status Procrit [id number] UNIT/ML Injection Solution (Epoetin Gabriel) Inject under [...] Pain, Moderate. 100 Tablet 0 09/04/2023 Active Additional Information Patient not taking.Reported on 02/26/2024 Labetalol HCl 100 MG Oral Tablet (Normodyne)Chandanati ons:CKD (chronic kidney disease) stage 4, GFR [...] MG Oral Tablet Delayed Release (Magnesium Cl-Calcium Carbonate)Chandanatio ns:CKD (chronic kidney disease) stage 4, GFR 15-29 ml/min (HCC),Hypomagnesemi a one pill twice a day 0 01/03/2024 Active Sodium Bicarbonate 650 MG Oral Tablet Take 1 Tablet by mouth in the morning and 1 Tablet before bedtime. 120 Tablet 11 01/04/2024 Active Additional Information Patient not taking.Reported on 02/26/2024 amLODIPine Besylate 10 MG Oral Tablet (Norvasc)Indication s:CKD (chronic kidney disease) stage 4, GFR 15-29 ml/min (HCC),HTN, goal below 130/80 Take 1 Tablet by mouth in the morning. Inc 10/26/2023. 90 Tablet 3 01/08/2024 Active Nirmatrelvir&Ritona vir 150/100 10 x 150 MG & 10 x 100MG Oral Tablet Therapy Pack (Paxlovid)Chandanatio ns:COVID-19 virus infection,CKD (chronic kidney disease) stage 4, GFR 15-29 ml/min (HCC),MDS (myelodysplastic syndrome) (HCC) Take 1 Tablet by mouth in the morning and 1 Tablet before bedtime. Take 1 pink tablet of Nirmatrelvir and 1 white tablet of Ritonavir two times a day by mouth.. 10 Tablet 0 01/27/2024 Active Additional Information Patient not taking.Reported on 02/26/2024 cloNIDine 0.3 MG/24HR Transdermal Patch Weekly (Piphluxey-Nig-3)In dications:CKD (chronic kidney disease) stage 4, GFR 15-29 ml/min (HCC),HTN, goal below 130/80 PLATCH 1 PATCH TOPICALLY ONCE WEEKLY. 12 Patch 1 02/02/2024 Active Additional Information Patient not taking.Reported on 02/26/2024 Lenalidomide 2.5 MG Oral Capsule (Revlimid)Indicatio ns:MDS (myelodysplastic syndrome) (HCC) Take 2.5 mg by mouth in the morning. For 28 days of a 28 day cycle. 28 Capsule 0 02/26/2024 Active Additional Information Patient not taking.Reported on 02/26/2024 Fluticasone Propionate 50 MCG/ACT Nasal Suspension (Flonase)Indication s:Seasonal allergic rhinitis due to pollen Administer 2 Sprays into each nostril in the morning. 9.9 mL 1 02/26/2024 Active documented as of this encounter (statuses as of 03/01/2024) Active Problems Problem Noted Date Diagnosed Date [...] as of this encounter (statuses as of 03/01/2024) Resolved Problems Problem Noted Date Diagnosed Date Resolved Date CKD (chronic kidney disease) stage 4, GFR 15-29 ml/min 09/04/2023 09/04/2023 Anemia due to chronic kidney disease 09/01/2023 12/31/2023 Overview: Per CKD protocol documented as of this encounter (statuses as of 03/01/2024) Immunizations Name Administration Dates Next Due Pneumococcal [...] encounter Miscellaneous Notes * Telephone Encounter - Milton Hsieh RN - 03/01/2024 2:36 PM EDT Received prelim results from lab regarding patient. K- 5.9 BUN- 159 They advised that they ran two sets of tubes and had similar results, therefore, do not believe hemolyzation to be a factor. Per Dr. Patterson- Pt needs to go to the ER. Called patient, no answer, LMOM with return #. * Telephone Encounter - Maame Lau LPN - 03/01/2024 1:52 PM EDT Patient was in today for her Retacrit 40,000 unit injection. She had main complaint of not being able to keep anything down. Water taste horrible. Patient stated she is losing more weight due to not being able to eat. Patient also asking if she should restart the Revlimid but was concerned due to that is when the not being able to keep anything down started was at the same time as starting Revlimid Please contact patient to discuss. Was made aware she has appointment 03/[address] Patterson and her next Retacrit documented in this encounter Plan of Treatment Upcoming Encounters Date Type Department Care Team (Late st Contact Info) Description 03/01/2024 6:30 PM EDT Scheduled Telephone Pharmacy Hematology Oncology [facility] ([facility] [address] [place] [address] [facility] Hem/Onc [facility] [address] [place] [address] 03/09/2024 1:20 PM EDT Laboratory Laboratory [facility] Fiorella [place] [address] [place] [phone] Elinor Barros [address] [place] [address] 03/09/2024 2:00 PM EDT Office Visit Hematology/Oncology [place] [facility] Baut[place] [address] [place] [phone] Kaci Patterson MD [address] [place] [address] 03/09/2024 2:30 PM EDT Immunization/Injecti on Hematology/Oncology Treatment, [place] 200 [facility] Richard [place], [place] [phone] Nurse, Med 4 [address] [place], [place] [address] 03/15/2024 8:40 AM EDT Office Visit Sleep Disorders Ctr Afsaneh Kerr [place] [address] [place] [phone] Mily Lau, [address] [place] [address] 03/15/2024 12:10 PM EDT Laboratory Laboratory [facility] [place] [address] [phone] Park Lab [facility] [address] [facility] [place], [place] [address] 03/15/2024 1:15 PM EDT Immunization/Injecti on Hematology/Oncology Treatment, [place] 200 [facility], [place] [phone] Nurse, Med 4 [address] [place], [place] [address] 03/22/2024 12:10 PM EDT Laboratory Laboratory [facility] [place] [address] [place] [address] [phone] Park, Lab [facility] [address] [facility] [place], [place] [address] 03/22/2024 1:15 PM EDT Immunization/Injecti on Hematology/Oncology Treatment, [place] 200 [facility], [place] [phone] Nurse, Med 4 [address] [place] [address] 03/29/2024 12:10 PM EDT Laboratory Laboratory [facility] [place] 200 [facility] [place] [phone] Elinor Barros [facility] 200 [facility] [place] [address] 03/29/2024 1:15 PM EDT Immunization/Injecti on Hematology/Oncology Treatment, [place] 200 [facility] [place] [phone] Nurse, Med 200 [facility] [place] [address] 04/04/2024 11:20 AM EDT Office Visit General Internal Medicine [facility] Fiorella [place] 200 [facility] [place] [address] Chio Simental MD 200 [facility] [place] [address] 04/05/2024 9:00 AM EDT Pharmacy Pharmacy Hematology Oncology [facility] [address] [place] [address] [facility] Hem/Onc [address] [place] [address] 04/05/2024 11:40 AM EDT Office Visit Nephrology, [facility] [address] [place] [address] [address] Tariq Pena MD 200 [facility] [place] [address] Health Maintenance Due Date Last Done Comments Zoster Vaccines (1 of 2) 02/09/1971 Cologuard 02/09/1997 Colonoscopy 02/09/1997 Colorectal Cancer Screening 02/09/1997 Fecal Occult Blood Test 02/09/1997 Sigmoidoscopy 02/09/1997 DXA Scan 02/09/2017 COVID-19 Vaccine (2 - Pfizer risk series) 09/27/2023 09/06/2023 GFR 07/12/2024 01/12/2024, 12/17, 12/08/2023, Additional history exists Depression Screening 09/04/2024 09/04/2023 Nephrology Referral 09/09/2024 09/09/2023 PTH 09/14/2024 09/14/2023, 09/07/2023 Phosphate 09/14/2024 09/14/2023, 09/07/2023 Albumin/Creatinine Ratio 09/16/2024 09/16/2023 Hgb 03/01/2025 03/01/2024 Lipid Panel 09/07/2028 09/07/2023 DTaP,Tdap,and Td Vaccines [...] filedocumented as of this encounter Care Teams Principal Clerk Typist Relationship Specialty Start Date End Date Chio Simental MD [address] [place], [place] [address] PCP - General Internal Medicine 09/04/23 documented as of this encounter
--- OUTSIDE RECORDS SUMMARY | 2024-03-02 05:34 | External Medical Summary | Summary of Care ---
Author Name Unknown Organization [facility] Address [address] [place] [address] Phone [phone] Care Team Providers Care Printing Press Operator Apprentice Name Role Phone Chio Simental MD Primary Care Provider [phone] Reason for Visit * Reason Onset Date Comments Advice 03/01/2024 Encounter Details Date Type Department Care Team ([facility] Contact Info) Description 03/01/2024 Telephone Hematology/Oncology Harjinder Fiorella [place] [address] [place] [phone] Kaci Patterson MD [address] [place] [phone] Advice Allergies Active Allergy Reactions Criticality Noted Date Comments Ampicillin Rash Medium 09/04/2023 Codeine Rash 07/21/2023 Iodinated Contrast Media Itching,Rash 3 Penicillins Rash 09/01/2023 Swelling Red Dye Hives 07/21/2023 documented as of this encounter (statuses as of 03/01/2024) Medications Medication Sig Dispensed Refills Start Date End Date Status Procrit [id number] UNIT/ML Injection Solution (Epoetin Gabriel) Inject under [...] 02/26/2024 cloNIDine 0.3 MG/24HR Transdermal Patch Weekly (Awbapbqnj-Ews-2)In dications:CKD (chronic kidney disease) stage 4, GFR [...] Encounter - Milton Hsieh RN - 03/01/2024 4:08 PM EDT Pt is going to the ER per Helen Jarrell LPN. Will follow up with ER results. * Telephone Encounter - Milton Hsieh RN [...] Department Care Team (Latest Contact Info) Description 03/01/2024 6:30 PM EDT Scheduled Telephone Pharmacy Hematology Oncology [address] [address] Shahab [place] Hem/Onc Tech [facility] [place] [address] Canceled (Radiological Health Specialist Error) 03/03/2024 6:30 PM EDT Scheduled Telephone Pharmacy Hematology Oncology [place] [address] [place] [address] [facility] Hem/Onc Tech [address] [place], [place] [address] 03/09/2024 1:20 PM EDT Laboratory Laboratory [facility] Fiorella [place] [address] [place] [phone] Fiorella [facility] [address] [facility] [place] [address] 03/09/2024 2:00 PM EDT Office Visit Hematology/Oncolog y [facility] Fiorella [place] [address] [place] [phone] Kaci Patterson MD [address] [place] [address] 03/09/2024 2:30 PM EDT Immunization/Inject ion Hematology/Oncolog y Treatment, [place] 200 [facility] [place] [phone] Nurse, Med 4 [address] [place] [address] 03/15/2024 8:40 AM EDT Office Visit Sleep Disorders Ctr [facility] [place] [facility] [phone] Mily Lau, [address] [facility] [address] 03/15/2024 12:10 PM EDT Laboratory Laboratory [facility] Fi[place]lla [place] [address] [place] [phone] [facility]lla [facility] [address] [facility] [place] [address] 03/15/2024 1:15 PM EDT Immunization/Inject ion Hematology/Oncolog y Treatment, [place] 200 [facility] [place] [phone] Nurse, Med 4 [address] [place] [address] 03/22/2024 12:10 PM EDT Laboratory Laboratory [facility] [place] [address] [place], [place] [phone] Fiorella Lab [facility] [address] [place], [place] [address] 03/22/2024 1:15 PM EDT Immunization/Inject ion Hematology/Oncolog y Treatment, [place] 200 [facility], [place] [phone] Nurse, Med 4 [address] [place], [place] [address] 03/29/2024 12:10 PM EDT Laboratory Laboratory [facility] [place] [address] [place] [address] Fiorella Lab Harjinder [address] [place], [place] [address] 03/29/2024 1:15 PM EDT Immunization/Inject ion Hematology/Oncolog y Treatment, [place] 200 [facility], [place] [phone] Nurse, Med 4 [address] [place], [place] [address] 04/04/2024 11:20 AM EDT Office Visit General Internal Medicine [facility] [place] [address] [place], [place] [address] Chio Simental MD 200 [facility] [place], [place] [address] 04/05/2024 9:00 AM EDT Pharmacy Pharmacy Hematology Oncology [place] [address] [place] [address] [facility] Hem/Onc [address] [place] [address] 04/05/2024 11:40 AM EDT Office Visit Nephrology, [facility] [address] [place] [address] Tariq Pena MD 200 [facility] [place] [address] Health Maintenance Due Date Last Done Comments [...] filedocumented as of this encounter Care Teams Printing Press Operator Apprentice Relationship Specialty Start Date End Date Chio Simental MD 200 [facility] [place] [address] PCP - General Internal Medicine 09/04/23 documented as of this encounter
--- OUTSIDE RECORDS SUMMARY | 2024-03-02 05:35 | External Medical Summary | Summary of Care ---
Author Name Unknown Organization [facility] Address [address] [place] [address] Phone [phone] Care Team Providers Care Check Weigher Name Role Phone Chio Simental MD Primary Care Provider [phone] Reason for Visit * Reason Comments Outpatient Testing Encounter Details Date Type Department Care Team ([facility] Contact Info) Description 03/01/2024 12:10 PM EDT [facility] [address] [place] [address] [facility], Lab Scenery [address] [place] [address] 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); MDS (myelodysplastic syndrome) (HCC) Allergies Active Allergy Reactions Criticality Noted Date Comments Ampicillin Rash Medium 09/04/2023 Codeine Rash 07/21/2023 Iodinated Contrast Media Itching,Rash 3 Penicillins Rash 09/01/2023 Swelling Red Dye Hives 07/21/2023 documented as of this encounter (statuses as of 03/01/2024) Medications Medication Sig Dispensed Refills Start Date End Date Status Procrit [id number] UNIT/ML Injection Solution (Epoetin Gabriel) Inject under [...] 02/26/2024 Labetalol HCl 100 MG Oral Tablet (Normodyne)Indicati [...] 02/26/2024 cloNIDine 0.3 MG/24HR Transdermal Patch Weekly (Zrwnjtjrf-Enk-5)In dications:CKD (chronic kidney disease) stage 4, GFR [...] PM EDT Scheduled Telephone Pharmacy Hematology Oncology [facility] [address] [place] [address] [facility] [address] [place] [facility] [address] 03/09/2024 1:20 PM EDT Laboratory Laboratory Dorothy Barros [place] [address] [place] [address] [phone] Elinor Barros [address] [place] [address] [address] 03/09/2024 2:00 PM EDT Office Visit Hematology/Oncology Dorothy Barros [place] [address] [place] [address] [phone] Kaci Patterson MD [address] [place] [address] 03/09/2024 2:30 PM EDT Immunization/Injecti on Hematology/Oncology Treatment, [place] 200 [facility] [place] [phone] Nurse, Med [address] [place] [address] 03/15/2024 8:40 AM EDT [facility] [place] [address] [place] [phone] Mily Lau, [address] [place] [address] 03/15/2024 12:10 PM EDT Laboratory Laboratory Dorothy Barros [place] [address] [place] [phone] Elinor Barros [address] [place] [address] [address] 03/15/2024 1:15 PM EDT Immunization/Injecti on Hematology/Oncology Treatment, [place] 200 [facility] [place] [phone] Nurse, Med 4 [address] [place], [place] [address] 03/22/2024 12:10 PM EDT Laboratory Laboratory [facility] [place] [address] [place], [place] [phone] Fiorella Lab [address]en[address] [facility] [place], [place] [address] 03/22/2024 1:15 PM EDT Immunization/Injecti on Hematology/Oncology Treatment, [place] 200 [facility], [place] [phone] Nurse, Med 4 [address] [place] [address] 03/29/2024 12:10 PM EDT Laboratory Laboratory [facility] [place] [address] [phone] Fi[place] Lab [facility] [address] [facility] [place], [place] [address] 03/29/2024 1:15 PM EDT Immunization/Injecti on Hematology/Oncology Treatment, [place] 200 [facility], [place] [phone] Nurse, Med 4 [address] [place], [place] [address] 04/04/2024 11:20 AM EDT Office Visit General Internal Medicine [facility] [place] [address] [place], [place] [address] Chio Simental MD [address] [place], [place] [address] 04/05/2024 9:00 AM EDT Pharmacy Pharmacy Hematology Oncology [place] [address] [place] [address] [facility] Hem[facility]c [address] [place] [address] 04/05/2024 11:40 AM EDT Office Visit Nephrology, Dorothy Barros [address] [place], [place] [address] Tariq Pena MD [address] [place] [address] Pending Results Name Type Priority Associated Diagnoses Date /Time FERRITIN Lab STAT 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) 03/01/2024 12:59 PM EDT IRON SCREEN, INCLUDING TIBC Lab STAT 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) 03/01/2024 12:59 PM EDT VITAMIN B12 Lab STAT 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) 03/01/2024 12:59 PM EDT FOLIC ACID Lab STAT 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) 03/01/2024 12:59 PM EDT COMPREHENSIVE METABOLIC PANEL Lab STAT MDS (myelodysplastic syndrome) (HCC) 03/01/2024 12:59 PM EDT TSH WITH FREE T4 IF INDICATED Lab STAT MDS (myelodysplastic syndrome) (HCC) 03/01/2024 12:59 PM EDT Health Maintenance Due Date Last [...] Not on filedocumented as of this encounter Procedures Procedure Name Priority Date/Time Associated Diagnosis Comments DIFFERENTIAL, AUTOMATED STAT 03/01/2024 12:59 PM EDT 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) CBC STAT 03/01/2024 12:59 PM EDT 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) CBC STAT 03/01/2024 12:59 PM EDT 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) DIFFERENTIAL, TECHNOLOGIST REVIEW Routine 03/01/2024 12:59 PM EDT 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) documented in this encounter Results * (ABNORMAL) DIFFERENTIAL, TECHNOLOGIST REVIEW (03/01/2024 12:59 PM EDT) WBC 7.77 4.00 - 10.80 K/uL 03/01/2024 1:31 PM EDT LABORATORY [place] 56-02 Neutrophils % 76.0(H) 40.0 - 75.0 % 03/01/2024 1:31 PM EDT LABORATORY [place] 56-02 Lymphocytes % 10.0(L) 18.0 - 42.0 % 03/01/2024 1:31 PM EDT LABOR[facility]ORY [place] 56-02 Monocytes % 14.0(H) 1.0 - 11.0 % 03/01/2024 1:31 PM EDT LABORATORY [place] 56-02 Absolute Neutrophils 5.91 1.80 - 7.70 K/uL 03/01/2024 1:31 PM EDT [facility] 56 Absolute Lymphocytes 0.78(L) 1.00 - 4.80 K/uL 03/01/2024 1:31 PM EDT [facility] 56 Absolute Monocytes 1.09 0.00 - 1.10 K/uL 03/01/2024 1:31 PM EDT [facility] 56 nRBCs 1(H) <=0 /100 WBCs 03/01/2024 1:31 PM EDT [place] [address] Acanthocytes Moderate( A) None Seen 03/01/2024 1:[address]T [address] [place] Cells Moderate( A) None Seen 03/01/2024 1:31 PM EDT [address] Elliptocytes Moderate( A) None Seen 03/01/2024 1:[address] EDT [address] Schistocytes Few(A) None Seen 03/01/2024 1:[address] EDT [address] Blood Venous blood specimen / Unknown Venipuncture / Unknown 03/01/2024 12:59 PM EDT 03/01/2024 12:59 PM EDT Kaci Patterson MD LAB BLOOD ORDERA BLES Performing Organization Address City/[facility]/ZIP Co de Phone Number [facility] [address] [place] [address] * DIFFERENTIAL, AUTOMATED (03/01/2024 12:59 PM EDT) Blood Venous blood specimen / Unknown Venipuncture / Unknown 03/01/2024 12:59 PM EDT 03/01/2024 12:59 PM EDT Kaci Patterson MD LAB BLOOD ORDERA BLES [facility] [address] [place] [address] * (ABNORMAL) CBC (03/01/2024 12:59 PM EDT) WBC 7.77 4.00 - 10.80 K/uL 03/01/2024 1:31 PM EDT [facility] 56 RBC 4.14 3.85 - 5.15 M/uL 03/01/2024 1:31 PM EDT [facility] 56- HGB 9.8(L) 12.0 - 15.3 g/dL 03/01/2024 1:31 PM EDT [facility] 56 HCT 32.8(L) 36.0 - 45.2 % 03/01/2024 1:31 PM EDT [facility] 56 MCV 79.2 81.5 - 97.5 fL 03/01/2024 1:[address] MCH 23.7 27.0 - 34.0 pg 03/01/2024 1:31 PM EDT [facility] 56 MCHC 29.9 32.0 - 36.0 g/dL 03/01/2024 1:31 PM EDT [facility] 56 RDW 24.5 11.5 - 15.5 % 03/01/2024 1:31 PM EDT [facility] 56 PLT 156 140 - 400 K/uL 03/01/2024 1:31 PM EDT [facility] 56 MPV 03/01/2024 1:31 PM EDT [facility] 56 Comment:No result - abnormal platelet distribution. Blood Venous blood specimen / Unknown Venipuncture / Unknown 03/01/2024 12:59 PM EDT 03/01/2024 12:59 PM EDT Kaci Patterson MD LAB BLOOD ORDERA BLES [facility] 56 200 [facility] [address] documented in this encounter Visit Diagnoses Diagnosis 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) Myelodysplastic syndrome with 5q deletion MDS (myelodysplastic syndrome) (HCC) Myelodysplastic syndrome, unspecified documented in this encounter Care Teams Check Weigher Relationship Specialty Start Date End Date Chio Simental MD 200 [facility] [address] PCP - General Internal Medicine 09/04/23 documented as of this encounter
--- OUTSIDE RECORDS SUMMARY | 2024-03-02 05:35 | External Medical Summary ---
Author Name Unknown Address Unknown Organization K01:[facility] [place] [address] [place] [address] Laboratory Report Ordering Provider Test Date Status LEYDA MENSAH 03/01/2024 12:59:52 Final Observation Date Value Abnormality Reference (Units ) Status Folic Acid 03/01/2024 12:59:52 14.6 >4.5 (ng/ mL) Final Performing Location [facility] [place] [address] [place] [address]
--- OUTSIDE RECORDS SUMMARY | 2024-03-02 05:35 | External Medical Summary | Summary of Care ---
Author Name Unknown Organization [facility] Address [address] [place] [address] Phone [phone] Care Team Providers Care Plant Taxonomist Name Role Phone Chio Simental MD Primary Care Provider [phone] Reason for Visit * Reason Onset Date Comments Advice 03/01/2024 Encounter Details Date Type Department Care Team ([facility] Contact Info) Description 03/01/2024 Telephone Hematology/Oncology Harjinder Fiorella [place] [address] [place] [address] Kaci Patterson MD [address] [place] [id number] Advice Allergies Active Allergy Reactions Criticality Noted Date Comments Ampicillin Rash Medium 09/04/2023 Codeine Rash 07/21/2023 Iodinated Contrast Media Itching,Rash 3 Penicillins Rash 09/01/2023 Swelling Red Dye Hives 07/21/2023 documented as of this encounter (statuses as of 03/01/2024) Medications Medication Sig Dispensed Refills Start Date End Date Status Procrit [id number] UNIT/ML Injection Solution (Epoetin Gabriel) Inject under [...] 02/26/2024 cloNIDine 0.3 MG/24HR Transdermal Patch Weekly (Xsskwydib-Hsh-9)In dications:CKD (chronic kidney disease) stage 4, GFR [...] encounter Miscellaneous Notes * Telephone Encounter - Maame Lau LPN [...] PM EDT Scheduled Telephone Pharmacy Hematology Oncology [facility] [address] [place] [address] [facility] Hem/Onc [facility] [address] [place] [address] 03/09/2024 1:20 PM EDT Laboratory Laboratory [facility] [address] [facility] [place] [phone] [address] [place] [address] 03/09/2024 2:00 PM EDT Office Visit Hematology/Oncology [facility] [place] [address] [facility] [place] [phone] Kaci Patterson MD [address] [place] [address] 03/09/2024 2:30 PM EDT Immunization/Injecti on Hematology/Oncology Treatment, [place] [facility] [phone] Nurse, Med [address] [facility] [place] [address] 03/15/2024 8:40 AM EDT Office Visit Sleep Disorders Ctr Afsaneh [place] [address] [place] [address] Mily Lau, DO [address] [place] [address] 03/15/2024 12:10 PM EDT Laboratory Laboratory [facility] [address] [place], [place] [address] [place], Lab Scenery [address] [place], [place] [address] 03/15/2024 1:15 PM EDT Immunization/Injecti on Hematology/Oncology Treatment, [place] 200 [facility], [place] [phone] Nurse, Med 4 [address] [place], [place] [address] 03/22/2024 12:10 PM EDT Laboratory Laboratory [facility] [address] [place], [place] [address] [place], Lab Scenery [address] [place] [address] 03/22/2024 1:15 PM EDT Immunization/Injecti on Hematology/Oncology Treatment, [place] 200 [facility], [place] [address] Nurse, Med 4 [address] [place], [place] [address] 03/29/2024 12:10 PM EDT Laboratory Laboratory [facility] [address] [place] [address] Park Lab Scenery [address] [place] [address] 03/29/2024 1:15 PM EDT Immunization/Injecti on Hematology/Oncology Treatment, [place] 200 [place] [address] Nurse, Med 4 [address] [place] [address] 04/04/2024 11:20 AM EDT Office Visit General Internal Medicine [facility] Fi[place]lla [place] [address] [place], [place] [address] Chio Simental MD [address] [place] [address] 04/05/2024 9:00 AM EDT Pharmacy Pharmacy Hematology Oncology [facility] [address] [place] [address] [facility] Hem/Onc [address] [place] [address] 04/05/2024 11:40 AM EDT Office Visit Nephrology, [facility] [address] [place], [place] [address] Tariq Pena MD [address] [place] [address] Health Maintenance Due Date Last Done Comments [...] filedocumented as of this encounter Care Teams Plant Taxonomist Relationship Specialty Start Date End Date Chio Simental MD [address] [place] [address] PCP - General Internal Medicine 09/04/23 documented as of this encounter
--- OUTSIDE RECORDS SUMMARY | 2024-03-02 05:35 | External Medical Summary | Summary of Care ---
Author Name Unknown Organization [facility] Address [address] [place] [address] Phone [phone] Care Team Providers Care Retail Key Holder Name Role Phone Chio Simental MD Primary Care Provider [phone] Reason for Visit * Reason Comments Medication Administration Retacrit 40,00 0 units * Episode Based Medications (Routine) - Authorized Specialty Diagnoses / Procedures Referred By Jessica t Referred To Contact Diagnoses Anemia due to chronic kidney disease, unspecified CKD stage MDS (myelodysplastic syndrome) (HCC) CKD (chronic kidney disease) stage 4, GFR 15-29 ml/min (HCC) Procedures DE EPOETIN GABRIEL, NON-ESRD Kaci Patterson MD 200 [place] [address] Anc Hem/Onc [address] [address] Referral ID Status Reason Start Date Expiration Date V isits Requested Visits Authorized [id number] Authorized 11/17/2023 11/17/2024 [id number] Encounter Details Date Type Department Care Team ([facility] Contact Info) Description 03/01/2024 1:15 PM EDT Immunization/I njection Hematology/Oncology Treatment, [address] [address] Nurse, Med [address] [place] [address] Anemia due to chronic kidney disease, unspecified CKD stage*; MDS (myelodysplastic syndrome) (HCC); CKD (chronic kidney disease) stage 4, GFR 15-29 ml/min (HCC) Allergies Active Allergy Reactions Criticality Noted Date Comments Ampicillin Rash Medium 09/04/2023 Codeine Rash 07/21/2023 Iodinated Contrast Media Itching,Rash 3 Penicillins Rash 09/01/2023 Swelling Red Dye Hives 07/21/2023 documented as of this encounter (statuses as of 03/01/2024) Medications Medication Sig Dispensed Refills Start Date End Date Status Procrit [id number] UNIT/ML Injection Solution (Epoetin Gabriel) Inject under [...] 02/26/2024 cloNIDine 0.3 MG/24HR Transdermal Patch Weekly (Abyofjzou-Cvr-6)In dications:CKD (chronic kidney disease) stage 4, GFR [...] Pap smear for cervical cancer screening 09/04/20 Overview: In [place] ?2020 Screening for osteoporosis [...] Date Smoking Tobacco: Never Smokeless Tobacco: Never Tobacco Cessation:Counseling Given: Not Answered Alcohol Use Standard Drinks/Week Comments Never 0 [...] on file documented as of this encounter Last Filed Vital Signs Vital Sign Reading Time Taken Comments Blood Pressure 148/82 03/01/2024 1:37 PM EDT Pulse - - Temperature - - Respiratory Rate - - Oxygen Saturation - - Inhaled Oxygen Concentration - - Weight - - Height - - Body Mass Index - - documented in this encounter Nursing Notes * Maame Lau LPN - 03/01/2024 1:47 PM EDT Retacrit 40,000 units administered SQ into right upper extremity per standing order. HGB 9.8 Patient tolerated injection and will return next week documented in this encounter Plan of Treatment Upcoming Encounters Date Type Department Care Team (Late st Contact Info) Description 03/01/2024 6:30 PM EDT Scheduled Telephone Pharmacy Hematology Oncology [facility] [address] [place] [address] [facility] Hem/Onc [facility] [address] [place] [address] 03/09/2024 1:20 PM EDT Laboratory Laboratory [place] Domenico [place] [address] [place] [phone] Elinor Barros [place] [address] [place] [address] 03/09/2024 2:00 PM EDT Office Visit Hematology/Oncology [facility] [place] [address] [place] [phone] Kaci Patterson MD [address] [place] [address] 03/09/2024 2:30 PM EDT Immunization/Injecti on Hematology/Oncology Treatment, [place] [facility] [phone] Nurse, Med 4 [address] [place] [address] 03/15/2024 8:40 AM EDT Office Visit Sleep Disorders Ctr Afsaneh [place] [address] [place] [phone] Mily Lau DO [address] [facility] [place] [address] 03/15/2024 12:10 PM EDT Laboratory Laboratory Dorothy Barros [place] [address] [place] [phone] Fi[place]lla Lab Harjinder [address] [facility] [place] [address] 03/15/2024 1:15 PM EDT Immunization/Injecti on Hematology/Oncology Treatment, [place] 200 [facility] [place] [phone] Nurse, Med 4 [address] [place], [place] [address] 03/22/2024 12:10 PM EDT Laboratory Laboratory Dorothy Barros [place] [address] [place] [address] [place], Lab Scenery [address] [facility] [place] [place] [address] 03/22/2024 1:15 PM EDT Immunization/Injecti on Hematology/Oncology Treatment, [place] 200 [facility], [place] [phone] Nurse, Med [address] [place] [address] [address] 03/29/2024 12:10 PM EDT Laboratory Laboratory [facility] [place] [address] [place] [phone] [place], Lab [facility] [address] [facility] [place] [address] 03/29/2024 1:15 PM EDT Immunization/Injecti on Hematology/Oncology Treatment, [place] 200 [facility] [phone] Nurse, Med [address] [place] [address] [address] 04/04/2024 11:20 AM EDT Office Visit General Internal Medicine [facility] [place] [address] [place] [address] Chio Simental MD 200 [facility] [place] [place] [address] 04/05/2024 9:00 AM EDT Pharmacy Pharmacy Hematology Oncology [facility] [address] [place] [address] [facility] Hem/Onc [address] [place] [address] 04/05/2024 11:40 AM EDT Office Visit Nephrology, [facility] [address] [place], [place] [address] Tariq Pena MD 200 [facility] [place] [address] Health Maintenance Due Date Last Done Comments [...] as of this encounter Visit Diagnoses Diagnosis Anemia due to chronic kidney disease, unspecified CKD stage- Primary MDS (myelodysplastic syndrome) (HCC) Myelodysplastic syndrome, unspecified CKD (chronic kidney disease) stage 4, GFR 15-29 ml/min (HCC) Chronic kidney disease, Stage IV (severe) documented in this encounter Administered Medications Inactive Administered Medications - up to 3 most recent administrations Medication Order MAR Action Action Date Dose Rate Site Epoetin Gabriel-epbx (Retacrit) [id number] UNIT/ML inj 40,000 Units 40,000 Units, Subcutaneous, ONCE, On 03/01/24 at 1415, For 1 dose Given 03/01/2024 1:41 PM EDT 40,000 Units Arm Right Upper documented in this encounter Care Teams Retail Key Holder Relationship Specialty Start Date End Date Chio Simental MD [address] [place] [address] PCP - General Internal Medicine 09/04/23 documented as of this encounter
--- OUTSIDE RECORDS SUMMARY | 2024-03-02 05:35 | External Medical Summary | Summary of Care ---
Author Name Unknown Organization [facility] Address [address] [place] [place] [address] Phone [phone] Care Team Providers Care Advertising Sales Assistant Name Role Phone Chio Simental MD Primary Care Provider [phone] Encounter Details Date Type Department Care Team (Late st Contact Info) Description 03/01/2024 Medication Management Hematology/Oncology [facility] Fi[place]lla [place] [address] [facility] [place] [address] Kaci Patterson MD [address] [facility] [phone] Allergies Active Allergy Reactions Criticality Noted Date Comments Ampicillin Rash Medium 09/04/2023 Codeine Rash 07/21/2023 Iodinated Contrast Media Itching,Rash 3 Penicillins Rash 09/01/2023 Swelling Red Dye Hives 07/21/2023 documented as of this encounter (statuses as of 03/01/2024) Medications Medication Sig Dispensed Refills Start Date End Date Status Procrit [id number] UNIT/ML Injection Solution (Epoetin Gabriel) Inject under [...] 02/26/2024 cloNIDine 0.3 MG/24HR Transdermal Patch Weekly (Dmjmdzvmp-Pgy-0)In dications:CKD (chronic kidney disease) stage 4, GFR [...] as of this encounter Nursing Notes * Maame Lau LPN - 03/01/2024 1:51 PM EDT Error created documented in this encounter Plan of Treatment Upcoming Encounters Date Type Department Care Team (Late st Contact Info) Description 03/01/2024 6:30 PM EDT Scheduled Telephone Pharmacy Hematology Oncology [facility] [place] [address] [place] [address] [place] [facility] Hem/Onc Tech [address] [place] [address] 03/09/2024 1:20 PM EDT Laboratory Laboratory [facility] Fiorella [place] [address] [place] [phone] Fiorella [facility] [address] [place] [address] [address] 03/09/2024 2:00 PM EDT Office Visit Hematology/Oncology [facility] [place] [address] [place] [phone] Kaci Patterson MD [address] [place] [address] 03/09/2024 2:30 PM EDT Immunization/Injecti on Hematology/Oncology Treatment, [place] [address] [facility] [address] [place] [phone] Nurse, Med 4 200 [facility] [place] [address] 03/15/2024 8:40 AM EDT Office Visit Sleep Disorders Ctr Afsaneh Kerr [place] [address] [place] [phone] Mily Lau, [address] [address] 03/15/2024 12:10 PM EDT Laboratory [facility] [place] [address] [phone] Fiorella [facility] [address] [place] [address] [address] 03/15/2024 1:15 PM EDT Immunization/Injecti on Hematology/Oncology Treatment, [place] 200 [facility], [place] [phone] Nurse, Med 4 [address] [place], [place] [address] 03/22/2024 12:10 PM EDT Laboratory Laboratory [facility] [place] [address] [phone] [place], Lab Scenery [address] [facility] [place], [place] [address] 03/22/2024 1:15 PM EDT Immunization/Injecti on Hematology/Oncology Treatment, [place] [address] [place], [place] [phone] Nurse, Med [address] [address] 03/29/2024 12:10 PM EDT Laboratory Laboratory [facility] [place] [address] [phone] [place] Lab Dorothy [address] [facility] [place], [place] [address] 03/29/2024 1:15 PM EDT Immunization/Injecti on Hematology/Oncology Treatment, [place] 200 [address] [place], [place] [phone] Nurse, Med 4 [address] [place], [place] [address] 04/04/2024 11:20 AM EDT Office Visit General Internal Medicine [facility] Barros [place] [address] [place], [place] [address] Chio Simental MD [address] [place], [place] [address] 04/05/2024 9:00 AM EDT Pharmacy Pharmacy Hematology Oncology [address] [address] [facility] Hem/Onc [address] [place] [address] 04/05/2024 11:40 AM EDT Office Visit Nephrology, Dorothy Barros 200 [facility] [place] [address] Tariq Pena MD 200 [facility] [place] [address] Health Maintenance Due Date Last Done Comments [...] filedocumented as of this encounter Care Teams Advertising Sales Assistant Relationship Specialty Start Date End Date Chio Simental MD [address] [place] [address] PCP - General Internal Medicine 09/04/23 documented as of this encounter
--- OUTSIDE RECORDS SUMMARY | 2024-03-02 05:35 | External Medical Summary | Summary of Care ---
Author Name Unknown Organization [facility] Address [address] [place] [address] Phone [phone] Care Team Providers Care Culture Media Laboratory Assistant Name Role Phone Chio Simental MD Primary Care Provider [phone] Reason for Visit * Reason Comments Outpatient Testing Encounter Details Date Type Department Care Team ([facility] Contact Info) Description 03/01/2024 12:10 PM EDT [facility] [address] [place] [address] [place], Lab Scenery [address] [place] [address] 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); MDS (myelodysplastic syndrome) (HCC) Allergies Active Allergy Reactions Criticality Noted Date Comments Ampicillin Rash Medium 09/04/2023 Codeine Rash 07/21/2023 Iodinated Contrast Media Itching,Rash 3 Penicillins Rash 09/01/2023 Swelling Red Dye Hives 07/21/2023 documented as of this encounter (statuses as of 03/01/2024) Medications Medication Sig Dispensed Refills Start Date End Date Status Procrit [id number] UNIT/ML Injection Solution (Epoetin Gabriel) Inject under [...] 02/26/2024 cloNIDine 0.3 MG/24HR Transdermal Patch Weekly (Ktklpllnu-Gtc-1)In dications:CKD (chronic kidney disease) stage 4, GFR [...] PM EDT Scheduled Telephone Pharmacy Hematology Oncology [facility] [address] [place] [facility] [place] [address] [facility] [address] [facility] [place] [address] 03/09/2024 1:20 PM EDT Laboratory Laboratory Dorothy Barros [place] [address] [phone] Elinor Barros [address] [place] [address] [address] 03/09/2024 2:00 PM EDT Office Visit Hematology/Oncology Dorothy Barros [place] [address] [phone] Kaci Patterson MD [address] [place] [address] 03/09/2024 2:30 PM EDT Immunization/Injecti on Hematology/Oncology Treatment, [place] 200 [facility] Richard [place] [phone] Nurse, Med [address] [place] [address] 03/15/2024 8:40 AM EDT [facility] [place] [address] [place] [phone] Mily Lau, [address] [place] [address] 03/15/2024 12:10 PM EDT Laboratory Laboratory Dorothy Barros [place] [address] [phone] Elinor Barros [address] [place] [address] 03/15/2024 1:15 PM EDT Immunization/Injecti on Hematology/Oncology Treatment, [place] 200 [facility] [place] [phone] Nurse, Med 4 [address] [place], [place] [address] 03/22/2024 12:10 PM EDT Laboratory Laboratory [facility] [place] [address] [place], [place] [phone] [place] Lab Scenery [address] [facility] [place], [place] [address] 03/22/2024 1:15 PM EDT Immunization/Injecti on Hematology/Oncology Treatment, [place] 200 [facility], [place] [phone] Nurse, Med 4 [address] [place] [address] 03/29/2024 12:10 PM EDT Laboratory Laboratory [facility] [place] [address] [phone] [place] Lab [facility] [address] [facility] [place], [place] [address] 03/29/2024 1:15 PM EDT Immunization/Injecti on Hematology/Oncology Treatment, [place] 200 [facility], [place] [phone] Nurse, Med 4 [address] [place], [place] [address] 04/04/2024 11:20 AM EDT Office Visit General Internal Medicine [facility] [place] [address] [place], [place] [address] Chio Simental MD [address] [place], [place] [address] 04/05/2024 9:00 AM EDT Pharmacy Pharmacy Hematology Oncology [place] [address] [place] [address] [facility] Hem[facility]Onc [address] [place] [address] 04/05/2024 11:40 AM EDT Office Visit Nephrology, Dorothy Barros 200 [place], [place] [address] Tariq Pena MD 200 [facility] [place] [address] Pending Results Name Type Priority Associated Diagnoses Date /Time CBC WITH WBC DIFFERENTIAL Lab STAT 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) 03/01/2024 12:59 PM EDT FERRITIN Lab STAT MDS (myelodysplastic syndrome) with [...] (myelodysplastic syndrome) (HCC) 03/01/2024 12:59 PM EDT CBC Lab STAT 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) 03/01/2024 12:59 PM EDT DIFFERENTIAL, AUTOMATED Lab STAT 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) 03/01/2024 12:59 PM EDT Health Maintenance [...] unspecified documented in this encounter Care Teams Culture Media Laboratory Assistant Relationship Specialty Start Date End Date Chio Simental MD 200 [facility] [place] [address] PCP - General Internal Medicine 09/04/23 documented as of this encounter
--- OUTSIDE RECORDS SUMMARY | 2024-03-02 05:35 | External Medical Summary | Summary of Care ---
Author Name Unknown Organization [facility] Address [address] [place] [address] Phone [phone] Care Team Providers Care Ice Cream Server Name Role Phone Chio Simental MD Primary Care Provider [phone] Reason for Visit * Reason Comments Outpatient Testing Encounter Details Date Type Department Care Team ([facility] Contact Info) Description 03/01/2024 12:10 PM EDT Laboratory [facility] [address] [place] [address] [place], Lab Scenery [address] [place] [address] 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); MDS (myelodysplastic syndrome) (HCC) Allergies Active Allergy Reactions Criticality Noted Date Comments Ampicillin Rash Medium 09/04/2023 Codeine Rash 07/21/2023 Iodinated Contrast Media Itching,Rash 3 Penicillins Rash 09/01/2023 Swelling Red Dye Hives 07/21/2023 documented as of this encounter (statuses as of 03/01/2024) Medications Medication Sig Dispensed Refills Start Date End Date Status Procrit [id number] UNIT/ML Injection Solution (Epoetin Gabriel) Inject under [...] 02/26/2024 cloNIDine 0.3 MG/24HR Transdermal Patch Weekly ([id number]-Sor-6)In dications:CKD (chronic kidney disease) stage 4, GFR [...] Telephone Pharmacy Hematology Oncology [facility] [address] [place] [facility] [address] [facility] [address] [facility] [place] [address] 03/09/2024 1:20 PM EDT Laboratory Laboratory Dorothy Barros [place] [address] [place] [phone] Elinor Barros [address] [place] [address] 03/09/2024 2:00 PM EDT Office Visit Hematology/Oncology Dorothy Barros [place] [address] [phone] Kaci Patterson MD [address] [place] [address] 03/09/2024 2:30 PM EDT Immunization/Injecti on Hematology/Oncology Treatment, [place] 200 [facility] Richard [place] [phone] Nurse, Med [address] [place] [address] 03/15/2024 8:40 AM EDT [facility] [place] [address] [place] [place] [phone] Mily Lau, [address] [place] [address] 03/15/2024 12:10 PM EDT Laboratory Laboratory Dorothy Barros [place] [address] [phone] Elinor Barros [address] [address] 03/15/2024 1:15 PM EDT Immunization/Injecti on Hematology/Oncology Treatment, [place] 200 [facility] [place] [phone] Nurse, Med 4 [address] [place], [place] [address] 03/22/2024 12:10 PM EDT Laboratory Laboratory [facility] [place] [address] [place], [place] [phone] [place] Lab Scenery [address] [facility] [place], [place] [address] 03/22/2024 1:15 PM EDT Immunization/Injecti on Hematology/Oncology Treatment, [place] 200 [facility], [place] [phone] Nurse, Med 4 [address] [place] [address] 03/29/2024 12:10 PM EDT Laboratory Laboratory [facility] [place] [address] [phone] [place] Lab [facility] [address] [facility] [place], [place] [address] 03/29/2024 1:15 PM EDT Immunization/Injecti on Hematology/Oncology Treatment, [place] 200 [facility], [place] [phone] Nurse, Med 4 [address] [place], [place] [address] 04/04/2024 11:20 AM EDT Office Visit General Internal Medicine [facility] [place] [address] [place], [place] [address] Chio Simental MD [address] [place], [place] [address] 04/05/2024 9:00 AM EDT Pharmacy Pharmacy Hematology Oncology [place] [address] [place] [address] [facility] Hem[facility]Onc [address] [place] [address] 04/05/2024 11:40 AM EDT Office Visit Nephrology, Dorothy Barros [address] [place], [place] [address] Tariq Pena MD [address] [place] [address] Pending Results Name Type Priority Associated Diagnoses [...] 5q deletion (HCC) 03/01/2024 12:59 PM EDT TSH WITH [...] 10.80 K/uL 03/01/2024 1:31 PM EDT LABORATORY [place] 56-02 Neutrophils % 76.0(H) 40.0 - 75.0 % 03/01/2024 1:31 PM EDT LABORATORY [facility] 56-02 Lymphocytes % 10.0(L) 18.0 - 42.0 % 03/01/2024 1:31 PM EDT LABORATORY [facility] 56-02 Monocytes % 14.0(H) 1.0 - 11.0 % 03/01/2024 1:31 PM EDT LABORATORY [place] 56-02 Absolute Neutrophils 5.91 1.80 - 7.70 K/uL 03/01/2024 1:31 PM EDT LABORATORY [place] 56-02 Absolute Lymphocytes 0.78(L) 1.00 - 4.80 K/uL 03/01/2024 1:31 PM EDT [facility] 56 Absolute Monocytes 1.09 0.00 - 1.10 K/uL 03/01/2024 1:31 PM EDT [facility] 56 nRBCs 1(H) <=0 /100 WBCs 03/01/2024 1:[address]T [address] Acanthocytes Moderate( A) None Seen 03/01/2024 1:[address]T [address] Conner Cells Moderate( A) None Seen 03/01/2024 1:31 PM [address]T [address] Elliptocytes Moderate( A) None Seen 03/01/2024 1:31 PM [address]T [address] Schistocytes Few(A) None Seen 03/01/2024 1:[address]T [address] Blood Venous blood specimen / Unknown Venipuncture / Unknown 03/01/2024 12:59 PM EDT 03/01/2024 12:59 PM EDT Kaci Patterson MD LAB BLOOD [place] [address] [address] [place] [address] * DIFFERENTIAL, AUTOMATED (03/01/2024 12:59 PM EDT) Blood Venous blood specimen / Unknown Venipuncture / Unknown 03/01/2024 12:59 PM EDT 03/01/2024 12:59 PM EDT Kaci Patterson MD LAB BLOOD [address] [place] [address] [address] [place] [address] * (ABNORMAL) CBC (03/01/2024 12:59 PM EDT) WBC 7.77 4.00 - 10.80 K/uL 03/01/2024 1:31 PM EDT [place] [address] RBC 4.14 3.85 - 5.15 M/uL 03/01/2024 1:[address] HGB 9.8(L) 12.0 - 15.3 g/dL 03/01/2024 1:31 PM EDT [facility] 56 HCT 32.8(L) 36.0 - 45.2 % 03/01/2024 1:[address] MCV 79.2 81.5 - 97.5 fL 03/01/2024 1:[address] MCH 23.7 27.0 - 34.0 pg 03/01/2024 1:[address]T [address] MCHC 29.9 32.0 - 36.0 g/dL 03/01/2024 1:[address] RDW 24.5 11.5 - 15.5 % 03/01/2024 1:[address] PLT 156 140 - 400 K/uL 03/01/2024 1:[address] MPV 03/01/2024 1:[address] Comment:No result - abnormal platelet distribution. Blood Venous blood specimen / Unknown Venipuncture / Unknown 03/01/2024 12:59 PM EDT 03/01/2024 12:59 PM EDT Kaci Patterson MD LAB BLOOD ORDER[address] [facility] [address] [facility] [place] [address] documented in this encounter Visit Diagnoses Diagnosis 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) Myelodysplastic syndrome with 5q deletion MDS (myelodysplastic syndrome) (HCC) Myelodysplastic syndrome, unspecified documented in this encounter Care Teams Ice Cream Server Relationship Specialty Start Date End Date [facility]io [facility]imental MD [address] [facility] [address] PCP - General Internal Medicine 09/04/23 documented as of this encounter
--- OUTSIDE RECORDS SUMMARY | 2024-03-02 05:35 | External Medical Summary | Summary of Care ---
Author Name Unknown Organization [facility] Address [address] [place] [address] Phone [phone] Care Team Providers Care Costume Designer Name Role Phone Chio Simental MD Primary Care Provider [phone] Reason for Visit * Reason Onset Date Comments Advice 03/01/2024 Encounter Details Date Type Department Care Team ([facility] [address] [facility] Contact Info) Description 03/01/2024 Telephone Hematology/Oncology Harjinder [place] [address] [place] [phone] Kaci Patterson MD [address] [place] [phone] Advice Allergies Active Allergy Reactions Criticality Noted Date Comments Ampicillin Rash Medium 09/04/2023 Codeine Rash 07/21/2023 Iodinated Contrast Media Itching,Rash 3 Penicillins Rash 09/01/2023 Swelling Red Dye Hives 07/21/2023 documented as of this encounter (statuses as of 03/01/2024) Medications Medication Sig Dispensed Refills Start Date End Date Status Procrit [id number] UNIT/ML Injection Solution (Epoetin Gabriel) Inject under [...] 02/26/2024 cloNIDine 0.3 MG/24HR Transdermal Patch Weekly (Wwrywbtxe-Kyc-1)In dications:CKD (chronic kidney disease) stage 4, GFR [...] PM EDT Scheduled Telephone Pharmacy Hematology Oncology [facility] [address] [place] [address] [facility] Hem/Onc [facility] [address] [place] [address] 03/09/2024 1:20 PM EDT Laboratory Laboratory [facility] 200 [facility] [place] [phone] [address] [place] [address] 03/09/2024 2:00 PM EDT Office Visit Hematology/Oncology [facility] [place] 200 [facility] [place] [phone] Kaci Patterson MD [address] [place] [place] [address] 03/09/2024 2:30 PM EDT Immunization/Injecti on Hematology/Oncology Treatment, [place] 200 [facility] [phone] Nurse, Med 200 [facility] [place] [address] 03/15/2024 8:40 AM EDT Office Visit Sleep Disorders Ctr [facility] [place] [address] [place] [phone] Mily Lau, DO [address] [place] [address] 03/15/2024 12:10 PM EDT Laboratory Laboratory [facility] [address] [place], [place] [phone] [place], Lab Scenery [address] [place], [place] [address] 03/15/2024 1:15 PM EDT Immunization/Injecti on Hematology/Oncology Treatment, [place] 200 [facility], [place] [phone] Nurse, Med 4 [address] [place], [place] [address] 03/22/2024 12:10 PM EDT Laboratory Laboratory [facility] [address] [place], [place] [address] [place], Lab Scenery [address] [place] [address] 03/22/2024 1:15 PM EDT Immunization/Injecti on Hematology/Oncology Treatment, [place] 200 [facility], [place] [address] Nurse, Med 4 [address] [place], [place] [address] 03/29/2024 12:10 PM EDT Laboratory Laboratory [facility] [address] [place] [address] [place] Lab Scenery [address] [place] [address] 03/29/2024 1:15 PM EDT Immunization/Injecti on Hematology/Oncology Treatment, [place] 200 [place] [address] Nurse, Med 4 [address] [place] [address] 04/04/2024 11:20 AM EDT Office Visit General Internal Medicine [facility] [place] [address] [facility] [address] [place], [place] [address] Chio Simental MD 200 [facility] [place] [address] 04/05/2024 9:00 AM EDT Pharmacy Pharmacy Hematology Oncology [facility] [address] [place] [address] [facility] Hem/Onc [address] [place] [address] 04/05/2024 11:40 AM EDT Office Visit Nephrology, [facility] [address] [place], [place] [address] Tariq Pena MD 200 [place] [address] Health Maintenance Due Date Last Done Comments [...] filedocumented as of this encounter Care Teams Costume Designer Relationship Specialty Start Date End Date Chio Simental MD [address] [place] [address] PCP - General Internal Medicine 09/04/23 documented as of this encounter
--- OUTSIDE RECORDS SUMMARY | 2024-03-02 05:36 | External Medical Summary ---
Author Name Unknown Address Unknown Organization K01:LABORATORY [facility] - [address] [facility] [address] Laboratory Report Ordering Provider Test Date Status MENSAHMARCELINOLEYDA 03/01/2024 12:59:52 Final Observation Date Value Abnormality Reference (Units ) Status Ferritin 03/01/2024 12:59:52 1453 Above high normal 13 -150 (ng/mL) Final Postmenopausal women have hi gher ferritin levels than pre-menopausal women. The above reference interval is based on pre-menopausal women. Performing Location LABORATORY [facility] [place] [place] - [address] [place] [address]
--- OUTSIDE RECORDS SUMMARY | 2024-03-02 05:36 | External Medical Summary ---
Author Name Unknown Address Unknown Organization K01:[place] [place] [address] [place] [address] Laboratory Report Ordering Provider Test Date Status LEYDA MENSAH 03/01/2024 12:59:52 Final Observation Date Value Abnormality Reference (Units ) Status Iron 03/01/2024 12:59:52 192 Above high normal 33-151 (ug/dL) Final Iron-binding capacity 03/01/2024 12:59:52 192 Below low normal 250-425 (ug/dL) Final Transferrin Sat % 03/01/2024 12:59:52 100 Above high normal 15-55 (%) Final Performing Location [place] [facility] [place] [address] [place] [address]
--- OUTSIDE RECORDS SUMMARY | 2024-03-02 05:36 | External Medical Summary ---
Author Name Unknown Address Unknown Organization K01:LABORATORY [facility] - [address] [place] [address] Laboratory Report Ordering Provider Test Date Status LEYDA MENSAH 03/01/2024 12:59:52 Final Baseline then every 2-3 telly hs Observation Date Value Abnormality Reference (Units ) Status TSH 03/01/2024 12:59:52 3.47 0.27-4.20 (uIU/mL) Final Performing Location LABORATORY [facility] - [address] [place] [address]
--- OUTSIDE RECORDS SUMMARY | 2024-03-02 05:36 | External Medical Summary ---
Author Name Unknown Address Unknown Organization K01:LABORATORY [facility] [place] - [address] [place] [address] Laboratory Report Ordering Provider Test Date Status LEYDA MENSAH 03/01/2024 12:59:52 Final Observation Date Value Abnormality Reference (Units ) Status Vitamin B12 03/01/2024 12:59:52 416 424-0209 (pg/mL) Final Performing Location LABORATORY [facility] - [address] [place] [address]
[2024-03-02 05:43] LABS: Base Excess VBG -17.1 mEq/L; HCO3 VBG 11 mmol/L; Oxygen Saturation VBG 77.4 %; PCO2 VBG 33 mmHg (38-50); PO2 VBG 55 mmHg; pH VBG 7.13 (7.36-7.41)
[2024-03-02 05:45] LABS: Appearance Urine Cloudy (Clear); Bacteria Urine Automated None Seen (None Seen); Bilirubin Urine Negative (Negative); Blood Urine Trace (Negative); Cast Urine Automated 0-2 /lpf (0-2); Color Urine Yellow; Epithelial Cell Urine Auto 0-2 /hpf (0-2); Glucose Urine UA Trace (Negative); Ketones Urine Negative (Negative); Leukocyte Esterase Urine Negative (Negative); Nitrite Urine Negative (Negative); Protein Urine 3+ (Negative); RBC Urine Automated 0-2 /hpf (0-2); Specific Gravity Urine 1.011 (1.000-1.030); Urobilinogen Urine Negative (Negative)
[2024-03-02] MEDS: INSULIN HUMAN REGULAR PER UNIT 10 UNITS in SYRINGE 9.9 ML IV ONE (05:55)
[2024-03-02] MEDS: SODIUM ZIRCONIUM CYCLOSILICATE 10 GM PACKET PO SCH (05:56)
[2024-03-02 06:34] LABS: Creatinine Urine Random 57.9 mg/dl
[2024-03-02 06:35] LABS: Amphetamines+Metham, Urine Neg (Neg); Barbiturates, Urine Neg (Neg); Benzodiazepine, Urine Neg (Neg); Cocaine, Urine Neg (Neg); MDMA (Ecstacy), Urine Neg (Neg); Marijuana, Urine Neg (Neg); Methadone, Urine Neg (Neg); Opiate, Urine Neg (Neg); Phencyclidine, Urine Neg (Neg)
[2024-03-02 06:44] LABS: BUN Creatinine Ratio 13.4 (10-20); Calcium 5.9 mg/dl (8.6-10.3); Creatinine Clr Calc Pharmacy 3.3 ml/min; Est GFR (African American) 3.2 ml/min; Est GFR (Non-African American) 2.8 ml/min; Magnesium 1.5 mg/dl (1.7-2.4); Phosphorus 11.8 mg/dl (2.5-4.9); Potassium 5.6 mmol/L (3.5-5.1)
[2024-03-02] MEDS ORDERED: GLUCAGON FOR INJ 1 MG VIAL SQ PRN (07:33)
[2024-03-02] MEDS ORDERED: DEXTROSE 50% 50 ML SYRINGE IV PRN (07:33)
[2024-03-02] MEDS ORDERED: GLUCOSE 10 TAB/TUBE PO PRN (07:33)
[2024-03-02] MEDS ORDERED: CARBOHYDRATES FOR HYPOGLYCEMIA PO PRN (07:33)
[2024-03-02] MEDS ORDERED: GLUCOSE 40% GEL 15 GM TUBE PO PRN (07:33)
[2024-03-02 08:45] LABS: Potassium 5.3 mmol/L (3.5-5.1)
[2024-03-02 08:58] LABS: Creatinine Clr Calc Pharmacy 3.3 ml/min; Est GFR (African American) 3.2 ml/min; Est GFR (Non-African American) 2.7 ml/min
--- NOTE | 2024-03-02 09:05 | Nephrology Consultation ---
Date of Consultation March 02, 2024 Assessment & Plan (1) Acute renal failure: (2) Acute hyperkalemia: (3) CKD (chronic kidney disease) stage 4, GFR 15-29 ml/min: She already had quite advanced CKD 4 Almost 5 with last creat of 3.2. She now presents with full blown uremic Symptoms---Severe Nausea, Metallic taste loss of appetite. She looks Uremic with her facial color also. has extreme electrolyte issues related with ESRD---Low Ca, high Phos, Super low bicarb, met acidosis, Critical Hyperkalemia. Despite ESRD she has Low mag which is very unusual. This is not JAIRON but progression of CKD 4/5 and now ESRD needing Dialysis. She will need senior living Dialysis and will need Tunnelled HD catheter. Plan for outpt Dialysis at [facility] under my care. shelter case manager to start the paperwork. Discussed in detail with patient and and updated the situation and they have agreed. She does not appear volume overloaded--maybe slightly volume depleted as she was not eating for many days. dialysis today 2 hrs--Qb 250 and no meds and no UF. Ca 2.5 and Bicarb 38 2k bath. Check labs 4 hrs after dialysis. Continue Bicarb drip for now at lower rate of 75 ml/hr. may stop iv fluid once stable lytes post dialysis. Also give 3gm iv mag. check mag and renal panel 4 hrs post dialysis today. Plan 1 hr time spent talking with primary team, ICU and in a family meeting and coordinating care History of Present Illness Reason for Consultation: JAIRON on CKD 4 Attending Physician: Arvind Strange MD History of Present Illness 74/F with CKD 4--most recent creat of 3.2 as of . Also has long h/o DM2 but not recently, hypomagnesia, obstructive sleep apnea on CPAP, hypertension, chronic diarrhea, myelodysplastic syndrome, anemia of chronic kidney disease, history of nephrolithiasis, history of breast cancer, presents with nausea /vomiting for the last few days and not able to eat comes to ER and found to have JAIRON, hyperkalemia and metabolic acidosis. Patient currently denies any diarrhea. She states she is urinating fine. Denies any fevers. Denies any abdominal pain. No chest pain. Denies shortness of breath. No fevers. No cough. No headache. No runny nose or sore throat. Current resting comfortably and hemodynamically stable. In ICU. Had k as high as 7 and bicarb of 11. Since being on bicarb drip K and co2 is better. has fitzpatrick and about 200 ml urine so far. ROS-- As above. Unless stated otherwise 12 Systems negative Physical Exam Physical Exam: General- Not in distress. Looks ashen color Head- atraumatic. MM moist Neck- supple, no JVD. Lungs- clear to auscultation no wheezing or crackles. Heart- regular rhythm; no murmur, no gallop. Abdomen- soft, nontender, no distension. Extremities- no pretibial edema, no erythema seen Neuro- alert, oriented x 3 no dysarthria Allergies Allergy/AdvReac Type Severity Reaction Status Date / Time ampicillin Allergy Intermediate Rash Verified 03/01/24 20:08 codeine Allergy Intermediate Rash Verified 03/01/24 20:08 Iodinated Contrast Media Allergy Intermediate ITCHY RASH Verified 03/01/24 20:08 Penicillins Allergy Intermediate SWELLING Verified 03/01/24 20:08 red dye Allergy Intermediate Hives Verified 03/01/24 20:08 Home Medications Medication Instructions Recorded Confirmed Type labetalol 100 mg tablet 100 mg PO BID 09/09/23 03/01/24 History amlodipine 10 mg tablet 10 mg PO QAM 12/19/23 03/01/24 History cholecalciferol (vitamin D3) 25 25 mcg PO DAILY 03/01/24 03/01/24 History mcg (1,000 unit) capsule (Vitamin D3) fluticasone propionate 50 2 spray intranasal DAILY 03/01/24 03/01/24 History mcg/actuation nasal spray,suspension loratadine 10 mg tablet (Claritin) 10 mg PO HS 03/01/24 03/01/24 History Patient History Medical History Leukemia High blood pressure Breast cancer Esophageal hernia Kidney failure History of fractured vertebra Surgical History H/O shoulder surgery History of left mastectomy Family History Other No pertinent family history Social History Smoking Status: Unknown if ever smoked Hx Alcohol Use: No Hx Substance Use: No Preferred Language: Spanish Communication Ability: Effective Development Eng Required: No Beliefs That Will Affect Care: None Current Living Situation: Spouse and Family Current Living Situation Comment: lives with and daughter current occupational status: retired Feels Safe at Home: Yes Safety Concerns: Feels Safe At This Time Assistive Devices: None Results & Data Vital Signs (Past 12 Hours) Vital Signs Temp Pulse Pulse Resp BP BP Pulse Ox 03/02/24 06:31 155/89 H 03/02/24 05:40 94 H 15 03/02/24 05:01 92 H 14 99 03/02/24 05:00 198/94 H 03/02/24 05:00 92 H 14 99 03/02/24 04:36 196/93 H 03/02/24 04:36 85 18 98 03/02/24 04:35 90 15 99 03/02/24 04:35 188/97 H 03/02/24 04:31 93 H 16 100 03/02/24 04:31 227/85 H 03/02/24 04:10 37.0 C 90 20 195/90 H 99 03/02/24 03:45 195/90 H 03/02/24 03:45 94 H 19 100 03/02/24 03:40 90 03/02/24 03:40 03/02/24 02:48 90 16 99 03/02/24 00:03 96 H 26 H 175/85 H 98 03/01/24 23:20 99 H 03/01/24 22:00 100 H 22 98 03/01/24 21:50 99 H 17 98 03/01/24 21:40 97 H 16 99 03/01/24 21:30 109 H 16 03/01/24 21:10 96 H 22 94 Pulse Ox O2 Del Method O2 Del Method 03/02/24 06:31 03/02/24 05:40 03/02/24 05:01 Room Air 03/02/24 05:00 03/02/24 05:00 03/02/24 04:36 03/02/24 04:36 03/02/24 04:35 03/02/24 04:35 03/02/24 04:31 03/02/24 04:31 03/02/24 04:10 Room Air 03/02/24 03:45 03/02/24 03:45 03/02/24 03:40 03/02/24 03:40 100 Room Air 03/02/24 02:48 Room Air 03/02/24 00:03 Room Air 03/01/24 23:20 03/01/24 22:00 03/01/24 21:50 03/01/24 21:40 03/01/24 21:30 03/01/24 21:10 Laboratory Results Reviewed Diagnostic Findings Reviewed
--- NOTE | 2024-03-02 09:23 | Procedure Note ---
Procedure Note Date of Service March 02, 2024 Note CENTRAL LINE PROCEDURE NOTE: Procedure: Hemodialysis Provider: Onur Padron MD Indication: Central Drug Administration, Poor Venous Access, Multiple Lab Draws Necessary, etc. Anesthesia: 5 mL lidocaine 1% Site: Left internal jugular Consent was signed and placed on the chart prior to procedure. Indication, risks, and benefits were explained at length. A time-out was completed verifying correct patient, procedure, site, posi tioning, and implants(s) or special equipment if applicable. Patients right and left neck was cleansed and draped in the typical sterile fashion using Chloraprep. The Internal Jugular Vein and Carotid Artery were identified using ultrasound. The superficial tissue was anesthetized using 5 mL of 1% lidocaine without epinephrine under direct visualization with the ultrasound. After adequate anesthetization was achieved, the Internal Jugular vein on the right was cannulated under direct ultrasound guidance using an introducer needle on a syringe. Good venous blood return was maintained prior to removal of syringe from introducer needle. Using Seldinger Technique. Despite multiple attempts, we were unable to pass the wire and a serial ultrasound demonstrated the vein was no longer patent with a small hematoma. Decision was made to proceed to the left side. Left internal jugular vein was easily identified. Skin and subcutaneous tissues were anesthetized with 5 mL 1% lidocaine locally. The vein was easily accessed using an 18-gauge needle with good blood return. The introducer needle was removed and ultrasound images were obtained of the guide wire within the Internal Jugular Vein and saved to the patients medical record. A small incision was made in penetrating fashion at the guide wire insertion site utilizing an 11 blade scalpel. Serial dilators were advanced within the ve ssel without resistance. The final dilator was exchanged for the a 24 cm hemodialysis catheter which had been previously flushed with saline which was advanced into the vessel without resistance. The guide wire was removed intact from the catheter without issue. Claves were placed on each catheter tip with confirmation of good blood flow from each lumen. Each port was easily flushed with sterile saline. The catheter was placed at 24 cm and sutured in place. BioPatch was applied to the catheter and a sterile Tegaderm dressing was applied over the catheter with careful attention to sterility. Patient tolerated procedure well. No immediate complications were met. Post procedure x-ray was ordered and currently pending Coding CPT Codes Tubes, Drains, and Vasc Access - Tubes, Drains, and Vasc Access: [id number] Insertion of cannula for hemodialysis ([id number]) Tubes, Drains, and Vasc Access - Tubes, Drains, and Vasc Access: [id number] Ultrasound Guidance For Vascular ([id number]) [facility] Procedure Codes (Charges) Tubes, Drains, and Vasc Access Procedure 1: Tubes, Drains, and Vasc Access: [id number] Insertion of cannula for hemodialysis Procedure 2: Tubes, Drains, and Vasc Access: [id number] Ultrasound Guidance For Vascular
[2024-03-02] MEDS ORDERED: SODIUM CHLORIDE 0.9% 1,000 ML IV PRN (09:34)
[2024-03-02 09:45] LABS: BUN Creatinine Ratio 13.5 (10-20)
--- NOTE | 2024-03-02 09:56 | XRay Report ---
XR chest 1V portable HISTORY: line placement COMPARISON: None. FINDINGS: No pneumothorax. No pleural effusions. The cardiac silhouette is mildly enlarged. No eviden ce for pulmonary edema. The left jugular central venous catheter which terminates at the superior cav oatrial junction. Postoperative changes within the right shoulder. Question right lung densities are likely due to the overlapping ribs. Otherwise, lungs are clear. IMPRESSION: A left jugular central venous catheter terminates at the superior cavoatrial junction. No pneumothora x. ACT 112: Negative or not required by law. Electronically signed by: Milton Gardner M.D. 03/02/2024 9:53 AM
[2024-03-02 10:39] LABS: BUN Creatinine Ratio 13.7 (10-20); Calcium 5.9 mg/dl (8.6-10.3); Creatinine Clr Calc Pharmacy 3.3 ml/min; Est GFR (African American) 3.2 ml/min; Est GFR (Non-African American) 2.8 ml/min; Potassium 5.2 mmol/L (3.5-5.1)
--- NOTE | 2024-03-02 10:41 | Electrocardiogram Report ---
Test Reason : Blood Pressure : / mmHG Vent. Rate : 094 BPM Atrial Rate : 094 BPM P-R Int : 156 ms QRS Dur : 082 ms QT Int : 390 ms P-R-T Axes : 026 -13 099 degrees QTc Int : 487 ms Normal sinus rhythm Left ventricular hypertrophy with repolarization abnormality Poor R wave progression, consider anterior NE vs. lead placement vs. LVH Abnormal ECG No previous ECGs available Confirmed by Jef Lucas ([id number]) on 03/02/2024 10:41:21 AM Referred By: REFERRED SELF Confirmed By:Dale Lucas
--- NOTE | 2024-03-02 10:47 | Electrocardiogram Report ---
Test Reason : Blood Pressure : / mmHG Vent. Rate : 089 BPM Atrial Rate : 089 BPM P-R Int : 152 ms QRS Dur : 080 ms QT Int : 410 ms P-R-T Axes : 017 -08 081 degrees QTc Int : 498 ms Normal sinus rhythm Prolonged QT Abnormal ECG When compared with ECG of 01-MAR-2024 19:16, (unconfirmed) No significant change was found Confirmed by Jef Lucas ([id number]) on 03/02/2024 10:47:20 AM Referred By: REFERRED SELF Confirmed By:Dale Lucas
[2024-03-02] MEDS: SODIUM BICARBONATE 8.4% 75 MEQ in SODIUM CHLORIDE 0.45 % 1,000 ML IV SCH (11:51)
[2024-03-02] MEDS: INSULIN ASPART PER UNIT CHARGE SC SCH (11:56)
[2024-03-02] MEDS: CHOLECALCIFEROL 25 MCG (1000 UNITS) TAB PO SCH (12:13)
[2024-03-02] MEDS: FLUTICASONE PROPIONATE NA SPR 16 GM BTL NAE SCH (12:13)
[2024-03-02] MEDS: amLODIPine BESYLATE 5 MG TAB PO SCH (12:13)
[2024-03-02] MEDS: MAGNESIUM SULFATE / D5W 1 GM/100 ML BAG IV SCH (12:16)
--- NOTE | 2024-03-02 12:54 | Ultrasound Report ---
RIGHT INTERNAL JUGULAR VEIN VENOUS DOPPLER HISTORY: R INTERNAL JUGULAR VEIN occlusion COMPARISON STUDY: None. FINDINGS: Nonocclusive thrombus identified within the right internal jugular vein. This measures appr oximately 3 cm in length. This is age indeterminate but has a linear appearance and may represent chr onic rather than acute thrombus. IMPRESSION: Nonocclusive thrombus within the right internal jugular vein as described above. ACT 112: Negative or not required by law. Electronically signed by: Milton Gardner M.D. 03/02/2024 12:53 PM
--- NOTE | 2024-03-02 15:24 | Consultation ---
Date of Consultation March 02, 2024 Assessment & Plan (1) Acute renal failure: Pt with acute on chronic kidney disease, now hyperkalemic and requiring HD. Temp catheter placed earlier by strap making machine operator. Will need more permanent catheter. R IJ US demonstrates nonocclusive thrombus. Planning on permcath insertion either tomorrow or thursday in OR. Pt agreeable. History of Present Illness Reason for Consultation: ESRD Attending Physician: Arvind Strange MD History of Present Illness 74 yo f with hx of leukemia, breast ca, CKD, HTN, admitted wtih worsening renal fxn, seen in consultation today for permcath insertion for HD. Pt hyperkalemic and underwent temporary HD catheter insertion today. Pt admits fatigue/malaise. Denies RICE, fever, chest pain, SOB, abd pain, N/V, rest pain, claudication, other complaints. Allergies Allergy/AdvReac Type Severity Reaction Status Date / Time ampicillin Allergy Intermediate Rash Verified 03/01/24 20:08 codeine Allergy Intermediate Rash Verified 03/01/24 20:08 Iodinated Contrast Media Allergy Intermediate ITCHY RASH Verified 03/01/24 20:08 Penicillins Allergy Intermediate SWELLING Verified 03/01/24 20:08 red dye Allergy Intermediate Hives Verified 03/01/24 20:08 Home Medications Medication Instructions Recorded Confirmed Type labetalol 100 mg tablet 100 mg PO BID 09/09/23 03/01/24 History amlodipine 10 mg tablet 10 mg PO QAM 12/19/23 03/01/24 History cholecalciferol (vitamin D3) 25 25 mcg PO DAILY 03/01/24 03/01/24 History mcg (1,000 unit) capsule (Vitamin D3) fluticasone propionate 50 2 spray intranasal DAILY 03/01/24 03/01/24 History mcg/actuation nasal spray,suspension loratadine 10 mg tablet (Claritin) 10 mg PO HS 03/01/24 03/01/24 History Patient History Medical History Leukemia High blood pressure Breast cancer Esophageal hernia Kidney failure History of fractured vertebra Surgical History H/O shoulder surgery History of left mastectomy Family History Other No pertinent family history Social History Smoking Status: Unknown if ever smoked Hx Alcohol Use: No Hx Substance Use: No Preferred Language: Polish Communication Ability: Effective Lens Grinding Machine Operator Required: No Beliefs That Will Affect Care: None Current Living Situation: Spouse and Family Current Living Situation Comment: lives with and daughter current occupational status: retired Feels Safe at Home: Yes Safety Concerns: Feels Safe At This Time Assistive Devices: None Review of Systems Review of Systems: All systems reviewed & are unremarkable except as noted in HPI & below Physical Exam Constitutional: WD/WN, vitals as above + ill appearing, cooperative and comfortable; not in distress Neck: trachea midline Respiratory: normal respiratory effort, lungs clear to auscultation Auscultation: + diminished lung sounds Cardiovascular: Rate/Rhythm: regular rate and regular rhythm Vessels: posterior tibial pulses present, dorsalis pedis pulses present and radial pulses present; + abnormal peripheral pulses Extremities: normal capillary refill and + edema (mild) Gastrointestinal (Abdomen): Inspection/Auscultation: abdomen normal to inspection and normal bowel sounds Percussion/Palpation: abdomen soft; abdomen nontender Musculoskeletal: no cyanosis or clubbing, extremities motor strength 5/5 Skin: no rashes, warm and dry Neurologic: moves all extremities and awake; no focal motor deficits and not confused Results & Data Vital Signs (Past 12 Hours) Vital Signs Temp Pulse Pulse Resp BP BP Pulse Ox 03/02/24 12:00 37.0 C 101 H 03/02/24 11:30 99 H 177/92 H 03/02/24 11:00 91 H 189/97 H 03/02/24 10:30 96 H 176/103 H 03/02/24 10:30 176/103 H 03/02/24 10:30 97 H 15 98 03/02/24 10:00 89 178/102 H 03/02/24 10:00 178/102 H 03/02/24 10:00 86 14 98 03/02/24 09:57 184/96 H 03/02/24 09:57 90 16 97 03/02/24 09:50 37.0 C 83 03/02/24 09:00 93 H 17 96 03/02/24 09:00 184/92 H 03/02/24 08:00 180/102 H 03/02/24 08:00 84 14 03/02/24 07:07 101 H 19 03/02/24 07:07 161/113 H 03/02/24 07:00 93 H 23 03/02/24 07:00 250/95 H 03/02/24 06:31 155/89 H 03/02/24 05:40 94 H 15 03/02/24 05:01 92 H 14 99 03/02/24 05:00 198/94 H 03/02/24 05:00 92 H 14 99 03/02/24 04:36 196/93 H 03/02/24 04:36 85 18 98 03/02/24 04:35 90 15 99 03/02/24 04:35 188/97 H 03/02/24 04:31 93 H 16 100 03/02/24 04:31 227/85 H 03/02/24 04:10 37.0 C 90 20 195/90 H 99 03/02/24 03:45 195/90 H 03/02/24 03:45 94 H 19 100 03/02/24 03:40 90 03/02/24 03:40 Pulse Ox O2 Del Method O2 Del Method 03/02/24 12:00 03/02/24 11:30 03/02/24 11:00 03/02/24 10:30 03/02/24 10:30 03/02/24 10:30 Room Air 03/02/24 10:00 03/02/24 10:00 03/02/24 10:00 03/02/24 09:57 03/02/24 09:57 03/02/24 09:50 03/02/24 09:00 03/02/24 09:00 03/02/24 08:00 03/02/24 08:00 03/02/24 07:07 03/02/24 07:07 03/02/24 07:00 03/02/24 07:00 03/02/24 06:31 03/02/24 05:40 03/02/24 05:01 Room Air 03/02/24 05:00 03/02/24 05:00 03/02/24 04:36 03/02/24 04:36 03/02/24 04:35 03/02/24 04:35 03/02/24 04:31 03/02/24 04:31 03/02/24 04:10 Room Air 03/02/24 03:45 03/02/24 03:45 03/02/24 03:40 03/02/24 03:40 100 Room Air
[2024-03-02 16:20] LABS: Albumin Level 3.1 gm/dl (3.4-5.0); BUN Creatinine Ratio 12.1 (10-20); Calcium 6.1 mg/dl (8.6-10.3); Creatinine Clr Calc Pharmacy 4.7 ml/min; Est GFR (African American) 4.9 ml/min; Est GFR (Non-African American) 4.2 ml/min; Phosphorus 6.5 mg/dl (2.5-4.9); Potassium 3.6 mmol/L (3.5-5.1)
[2024-03-02 16:22] LABS: BUN Creatinine Ratio 12.4 (10-20); Creatinine Clr Calc Pharmacy 4.6 ml/min; Est GFR (African American) 4.7 ml/min; Est GFR (Non-African American) 4.1 ml/min; Potassium 3.6 mmol/L (3.5-5.1)
--- NOTE | 2024-03-02 17:15 | Hospitalist Progress Note ---
Date of Service March 02, 2024 Assessment & Plan (1) Acute renal failure: Plan: 74-year-old female with past med history significant for hypomagnesia, obstructive sleep apnea on CPAP, hypertension, chronic diarrhea, CKD stage IV, myelodysplastic syndrome, anemia of chronic kidney disease, history of nephrolithiasis, history of breast cancer, presents with nausea /vomiting for the last few days and not able to eat comes to ER and found to have JAIRON, hyperkalemia and metabolic acidosis. Patient currently denies any diarrhea. She states she is micturating okay. Denies any fevers. Denies any abdominal pain. No chest pain. Denies shortness of breath. No fevers. No cough. No headache. Vision is okay. No runny nose or sore throat. Current resting comfortably and hemodynamically stable. Alert and oriented x 3. She states is taking chemo pill daily seems for myelodysplastic syndrome. Progressive CKD 4/5, now progressing to ESRD requiring dialysis-presented with uremic symptoms and significant lab abnormalities -Nephrology on board. Continue hemodialysis per nephrology. Continue bicarb drip. Per nephrology, she will need long-term dialysis and will need tunneled hemodialysis catheter -Seen by vascular-plan for permacath insertion either tomorrow or Thursday in OR Hyperkalemia-status post dialysis. Hyperkalemia resolved and now on lower side 3.6. Will discontinue Lokelma and recheck at 8 PM and will be followed by the covering physician overnight. Hypocalcemia-status post calcium gluconate. Recheck in a.m. Anion gap metabolic acidosis-due to CKD. Significantly improving on bicarb drip. History of myelodysplastic syndrome- On Revlimid daily which will be held. Follows with heme-onc Sleep apnea- On CPAP nightly Mild elevation troponin-in setting of CKD. Doubt ACS. History of breast cancer diagnosed in 1989 treated with chemotherapy and surgery Hypertension-on amlodipine Nonocclusive thrombus identified in right internal jugular vein-anticoagulation deferred to card maker Dysphagia-CT soft tissue neck reviewed and MRI was recommended. Will defer to card maker. DVT prophylaxis-per card maker Disposition-continue ICU level care Admission and Anticipated Discharge Date Admission Date: March 02, 2024 Subjective Patient was seen and examined at bedside. States she is feeling much better. She is hungry and asking for food. States she was unable to eat for the past few days because of nausea and gagging. No fever, chills, chest pain or shortness of breath. Review of Systems Review of Systems: All systems reviewed & are unremarkable except as noted in Subjective Physical Exam Physical Exam: General: Lying comfortably in bed, not in distress, on room air HEENT: EOMI, DARSHAN, MMM Chest: Clear breath sounds bilaterally, no wheezes or crackles CVS: Regular rate and rhythm, normal heart sounds, no murmur Abdomen: Soft, non tender, not distended, normal bowel sounds Neuro: Awake, alert, oriented, conversing well, non focal Extremities: No edema Results & Data Results & Data Vital Signs (Past 12 Hours) Vital Signs Temp Pulse Pulse Resp BP BP Pulse Ox 03/02/24 12:00 37.0 C 101 H 03/02/24 11:30 99 H 177/92 H 03/02/24 11:00 91 H 189/97 H 03/02/24 10:30 96 H 176/103 H 03/02/24 10:30 176/103 H 03/02/24 10:30 97 H 15 98 03/02/24 10:00 89 178/102 H 03/02/24 10:00 178/102 H 03/02/24 10:00 86 14 98 03/02/24 09:57 184/96 H 03/02/24 09:57 90 16 97 03/02/24 09:50 37.0 C 83 03/02/24 09:00 93 H 17 96 03/02/24 09:00 184/92 H 03/02/24 08:00 180/102 H 03/02/24 08:00 84 14 03/02/24 07:07 101 H 19 03/02/24 07:07 161/113 H 03/02/24 07:00 93 H 23 03/02/24 07:00 250/95 H 03/02/24 06:31 155/89 H 03/02/24 05:40 94 H 15 03/02/24 05:01 92 H 14 99 O2 Del Method 03/02/24 12:00 03/02/24 11:30 03/02/24 11:00 03/02/24 10:30 03/02/24 10:30 03/02/24 10:30 Room Air 03/02/24 10:00 03/02/24 10:00 03/02/24 10:00 03/02/24 09:57 03/02/24 09:57 03/02/24 09:50 03/02/24 09:00 03/02/24 09:00 03/02/24 08:00 03/02/24 08:00 03/02/24 07:07 03/02/24 07:07 03/02/24 07:00 03/02/24 07:00 03/02/24 06:31 03/02/24 05:40 03/02/24 05:01 Room Air
[2024-03-02] MEDS: LORATADINE 10 MG TAB PO SCH (20:39)
[2024-03-02] MEDS: ONDANSETRON INJ 2 MG/ML 2 ML VIAL IV PRN (20:39)
[2024-03-02 20:42] LABS: BUN Creatinine Ratio 12.2 (10-20); Calcium 5.9 mg/dl (8.6-10.3); Creatinine Clr Calc Pharmacy 4.5 ml/min; Est GFR (African American) 4.6 ml/min; Potassium 3.9 mmol/L (3.5-5.1)
[2024-03-02] MEDS: ICU Protocol for HYPERglycemia SCH (22:57)
--- NOTE | 2024-03-03 07:33 | Critical Care Progress Note ---
Date of Service March 03, 2024 Assessment & Plan (1) Acute renal failure: (2) Acute hyperkalemia: (3) High blood pressure: Plan Impression: 74 YOF presents with progression of chronic kidney disease now requiring dialysis with hyperkalemia and metabolic acidosis as well as other electrolyte disturbances in setting of nausea/vomiting with attempts at solid food intake. Recommendations: 1. Acute deterioration of chronic kidney disease: Dialysis yesterday. Temporary line in place. Vascular consult for tunneled permacath. Additional renal replacement per nephrology. Defer management of calcium and phosphate to nephrology. 2. Hyperkalemia: Resolved with dialysis. 3. Metabolic acidosis: Bicarb per nephrology. Should improve with continued dialysis. 4. Anemia: Likely secondary to end-stage renal disease. No indication for transfusion. No indication of acute blood loss. Per nephrology. Patient's critical care issues have resolved. She can transfer out of the intensive care unit which may make continue dialysis logistically easier. Critical care services will sign off. Feel free to contact us with questions or concerns Admission and Anticipated Discharge Date Admission Date: March 02, 2024 Subjective Patient seen and examined. EMR reviewed. Discussed with bedside critical care nurse and overnight critical care MARY. Patient tolerated dialysis well yesterday. She states her nausea is improved. She had a little bit of oral intake. Her labs are improved. She is not having any pain at the dialysis catheter insertion site. She was evaluated by vascular surgery and is pending placement of tunneled permacath. She denies chest pain palpitations or shortness of breath. Review of Systems Review of Systems: All systems reviewed & are unremarkable except as noted in Subjective Physical Exam Physical Exam: PHYSICAL EXAM: General: awake, alert, flat affect Head: Normocephalic, atraumatic ENT: PERRL, EOMI, no pharyngeal exudate, mucous membranes dry Neuro: AAO x 3, speech clear and appropriate, strength intact bilaterally 5/5, sensation intact and equal all extremities and dermatomes, no pronator drift Chest: equal rise and fall of the chest, no accessory muscle use, no heaves or thrills, Clear to auscultation, on room air, Cardiac: Regular rate and rhythm, telemetry reviewed- NSR, skin warm dry, cap refill <3 seconds, peripheral pulses +2 no JVD, no murmur, no edema GI: NABS x 4 quadrants, soft, nontender to palpation, no rebound, guarding or tenderness : Spontaneously voiding, no pain, no CVA tenderness, Skin: no rash or erythema Results & Data Results & Data Vital Signs (Past 12 Hours) Vital Signs Temp Pulse Resp BP BP Pulse Ox Pulse Ox 03/03/24 06:00 36.7 C 96 H 16 156/91 H 95 03/03/24 05:09 36.7 C 17 164/91 H 98 03/03/24 05:01 36.8 C 93 H 17 164/91 H 98 03/03/24 04:12 36.7 C 97 H 15 149/84 H 98 03/03/24 03:40 95 03/03/24 03:00 98 H 16 157/87 H 97 03/03/24 02:00 36.7 C 99 H 17 164/109 H 97 03/03/24 01:14 105 H 22 155/96 H 98 03/03/24 00:15 165/87 H 03/03/24 00:11 96 H 03/03/24 00:00 36.7 C 99 H 17 176/107 H 97 03/02/24 23:01 37 C 100 H 17 147/83 H 97 03/02/24 22:00 37 C 99 H 16 144/87 H 96 03/02/24 21:00 37 C 103 H 24 158/96 H 96 03/02/24 20:46 36.9 C 105 H 18 169/90 H 96 03/02/24 20:01 97 H 16 174/90 H 96 03/02/24 19:33 37 C 100 H 18 158/89 H 96 O2 Del Method O2 Del Method 03/03/24 06:00 Room Air 03/03/24 05:09 Room Air 03/03/24 05:01 Room Air 03/03/24 04:12 Room Air 03/03/24 03:40 Room Air 03/03/24 03:00 03/03/24 02:00 03/03/24 01:14 03/03/24 00:15 03/03/24 00:11 03/03/24 00:00 03/02/24 23:01 Room Air 03/02/24 22:00 Room Air 03/02/24 21:00 03/02/24 20:46 03/02/24 20:01 03/02/24 19:33 Critical Care Results & Data Vital Signs (Past 12 Hours) Vital Signs Temp Pulse Resp BP BP Pulse Ox Pulse Ox 03/03/24 06:00 36.7 C 96 H 16 156/91 H 95 03/03/24 05:09 36.7 C 17 164/91 H 98 03/03/24 05:01 36.8 C 93 H 17 164/91 H 98 03/03/24 04:12 36.7 C 97 H 15 149/84 H 98 03/03/24 03:40 95 03/03/24 03:00 98 H 16 157/87 H 97 03/03/24 02:00 36.7 C 99 H 17 164/109 H 97 03/03/24 01:14 105 H 22 155/96 H 98 03/03/24 00:15 165/87 H 03/03/24 00:11 96 H 03/03/24 00:00 36.7 C 99 H 17 176/107 H 97 03/02/24 23:01 37 C 100 H 17 147/83 H 97 03/02/24 22:00 37 C 99 H 16 144/87 H 96 03/02/24 21:00 37 C 103 H 24 158/96 H 96 03/02/24 20:46 36.9 C 105 H 18 169/90 H 96 03/02/24 20:01 97 H 16 174/90 H 96 03/02/24 19:33 37 C 100 H 18 158/89 H 96 O2 Del Method O2 Del Method 03/03/24 06:00 Room Air 03/03/24 05:09 Room Air 03/03/24 05:01 Room Air 03/03/24 04:12 Room Air 03/03/24 03:40 Room Air 03/03/24 03:00 03/03/24 02:00 03/03/24 01:14 03/03/24 00:15 03/03/24 00:11 03/03/24 00:00 03/02/24 23:01 Room Air 03/02/24 22:00 Room Air 03/02/24 21:00 03/02/24 20:46 03/02/24 20:01 03/02/24 19:33 Lab & Micro Results (Past 24 Hours) No Data to Display Na 137 mmol/L (136-145) 03/02/24 K 3.9 mmol/L (3.5-5.1) 03/02/24 Cl 102 mmol/L (98-107) 03/02/24 CO2 20 mmol/L (21-32) L 03/02/24 Anion Gap 15 (3-11) H 03/02/24 BUN 109 mg/dl (6-23) H 03/02/24 Creatinine 8.96 mg/dl (0.6-1.2) H* 03/02/24 Estimated GFR ( Amer) 4.6 ml/min 03/02/24 Estimated GFR (Non-Af Amer) 4.0 ml/min 03/02/24 BUN/Creatinine Ratio 12.2 (10-20) 03/02/24 Glu 143 mg/dl (70-99(Fasting)) H 03/02/24 Ca 5.9 mg/dl (8.6-10.3) L* 03/02/24 Phosphorus Level 6.5 mg/dl (2.5-4.9) H 03/02/24 Albumin 3.1 gm/dl (3.4-5.0) L 03/02/24 Mg 2.0 mg/dl (1.7-2.4) 03/02/24 15:42 Calcium Level 5.9 mg/dl (8.6-10.3) L* 03/02/24 19:56 Diagnostic Findings (Past 24 Hours) Chest X-Ray 03/02/24 09:19 XR chest 1V portable HISTORY: line placement COMPARISON: None. FINDINGS: No pneumothorax. No pleural effusions. The cardiac silhouette is mildly enlarged. No evidence for pulmonary edema. The left jugular central venous catheter which terminates at the superior cavoatrial junction. Pos toperative changes within the right shoulder. Question right lung densities are likely due to the overlapping ribs. Otherwise, lungs are clear. IMPRESSION: A left jugular central venous catheter terminates at the superior cavoatrial junction. No pneumothorax. ACT 112: Negative or not required by law. Electronically signed by: Milton Gardner M.D. 03/02/2024 9:53 AM Venous Doppler Study 03/02/24 12:03 RIGHT INTERNAL JUGULAR VEIN VENOUS DOPPLER HISTORY: R INTERNAL JUGULAR VEIN occlusion COMPARISON STUDY: None. FINDINGS: Nonocclusive thrombus identified within the right internal jugular vein. This measures approximately 3 cm in length. This is age indeterminate but has a linear appearance and may represent chronic rather than acute thrombus. IMPRESSION: Nonocclusive thrombus within the right internal jugular vein as described above. ACT 112: Negative or not required by law. Electronically signed by: Milton Gardner M.D. 03/02/2024 12:53 PM I & O Totals 24 Hours 03/02/24 03/03/24 03/04/24 06:59 06:59 06:59 Intake Total 2134.583 / 2134.583 2404.583 / 2404.583 Output Total 140 / 140 501 / 501 Balance 1993.583 / 0772.100 6842.583 / 1903.583 Cumulative 03/01/24 17:27 thru 03/03/24 06:00 Intake Total 4539.166 Output Total 641 Balance 3898.166 RT Ventilator Mngmt (Last Documented) Ventilator Ordered Settings Respiratory Rate 16 03/03/24 06:00 Ventilator - PT Measurements Respiratory Rate 16 Coding Level of Care Code 77566 SUB INP/OBS CARE 3/50MIN Diagnoses Acute renal failure N17.9 Acute hyperkalemia E87.5 High blood pressure I10
[2024-03-03 08:56] LABS: Hemoglobin 8.5 g/dl (12.0-16.0); Mean Corpuscular Hemoglobin 23.3 pg (25.0-34.0); Mean Corpuscular Hgb Conc 30.4 g/dL (32.0-36.0); Mean Corpuscular Volume 76.7 fL (80.0-100.0); Platelet Count 103 K/uL (130-400); RDW Coefficient of Variation 22.8 % (11.5-14.5); RDW Standard Deviation 62.9 fL (36.4-46.3); Red Blood Count 3.65 M/uL (4.20-5.40); White Blood Count 7.43 K/ul (4.8-10.8)
[2024-03-03 09:01] LABS: BUN Creatinine Ratio 11.8 (10-20); Calcium 5.5 mg/dl (8.6-10.3); Creatinine Clr Calc Pharmacy 4.5 ml/min; Est GFR (African American) 4.6 ml/min; Est GFR (Non-African American) 3.9 ml/min; Potassium 3.8 mmol/L (3.5-5.1)
--- NOTE | 2024-03-03 09:12 | Electrocardiogram Report ---
Test Reason : Blood Pressure : / mmHG Vent. Rate : 090 BPM Atrial Rate : 090 BPM P-R Int : 134 ms QRS Dur : 078 ms QT Int : 428 ms P-R-T Axes : 019 -16 099 degrees QTc Int : 523 ms Sinus rhythm with occasional Premature ventricular complexes Voltage criteria for left ventricular hypertrophy Poor R wave progression, consider anterior FL vs. lead placement vs. LVH Prolonged QT Abnormal ECG When compared with ECG of 02-MAR-2024 04:36, Premature ventricular complexes are now Present Confirmed by Jef Lucas ([id number]) on 03/03/2024 9:12:28 AM Referred By: REFERRED SELF Confirmed By:Dale Lucas
--- NOTE | 2024-03-03 10:56 | Dialysis Progress Note ---
Date of Service March 03, 2024 Assessment & Plan Admission and Anticipated Discharge Date Admission Date: March 02, 2024 Subjective Assessment & Plan (1) Acute renal failure: (2) Acute hyperkalemia: (3) CKD (chronic kidney disease) stage 4, GFR 15-29 ml/min: She already had quite advanced CKD 4 Almost 5 with last creat of 3.2. She now presents with full blown uremic Symptoms---Severe Nausea, Metallic taste loss of appetite. She looks Uremic with her facial color also. has extreme electrolyte issues related with ESRD---Low Ca, high Phos, Super low bicarb, met acidosis, Critical Hyperkalemia. Despite ESRD she has Low mag which is very unusual. This is not JAIRON but progression of CKD 4/5 and now ESRD needing Dialysis. She will need computer terminal operator Dialysis and will need Tunnelled HD catheter. Plan for outpt Dialysis at [facility] under my care. onsite case manager to start the paperwork. IF she gets tunnelled HD cath Thursday, she can have Dialysis On thursday and then Can be discharged for outpt Dialysis. Discussed in detail with patient and and updated the situation and they have agreed. Hypocalcemia--Likely from uremia/ESRD. Start Cholecalciferol. Also Start Calcium Acetate for high Phos and Low Ca++.Plus give Iv calcium gluconate 3 gm. mag is normal today. We do not have a higher Ca bath so continue 2.5 Ca ++ bath Anemia--Will do venofer 100 mg iv and epo 74174 units. 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 No SOb. No edema. Labs overall better. Cath is working better today. Physical Exam Physical Exam: General- Not in distress. Looks ashen color Head- atraumatic. MM moist Neck- supple, no JVD. Lungs- clear to auscultation no wheezing or crackles. Heart- regular rhythm; no murmur, no gallop. Abdomen- soft, nontender, no distension. Extremities- no pretibial edema, no erythema seen Neuro- alert, oriented x 3 no dysarthria Results & Data Vital Signs (Past 12 Hours) Vital Signs Temp Pulse Resp BP BP Pulse Ox Pulse Ox 03/03/24 08:08 36.8 C 03/03/24 07:00 175/89 H 03/03/24 07:00 91 H 20 97 03/03/24 06:15 92 H 18 97 03/03/24 06:15 156/91 H 03/03/24 06:00 36.7 C 96 H 16 156/91 H 95 03/03/24 05:09 36.7 C 17 164/91 H 98 03/03/24 05:01 36.8 C 93 H 17 164/91 H 98 03/03/24 04:12 36.7 C 97 H 15 149/84 H 98 03/03/24 03:40 95 03/03/24 03:00 98 H 16 157/87 H 97 03/03/24 02:00 36.7 C 99 H 17 164/109 H 97 03/03/24 01:14 105 H 22 155/96 H 98 03/03/24 00:15 165/87 H 03/03/24 00:11 96 H 03/03/24 00:00 36.7 C 99 H 17 176/107 H 97 03/02/24 23:01 37 C 100 H 17 147/83 H 97 O2 Del Method O2 Del Method 03/03/24 08:08 03/03/24 07:00 03/03/24 07:00 03/03/24 06:15 03/03/24 06:15 03/03/24 06:00 Room Air 03/03/24 05:09 Room Air 03/03/24 05:01 Room Air 03/03/24 04:12 Room Air 03/03/24 03:40 Room Air 03/03/24 03:00 03/03/24 02:00 03/03/24 01:14 03/03/24 00:15 03/03/24 00:11 03/03/24 00:00 03/02/24 23:01 Room Air
[2024-03-03] MEDS ORDERED: EPOETIN ALFA 20,000 UNITS in SYRINGE 0 ML IV SCH (11:00)
[2024-03-03] MEDS ORDERED: CHOLECALCIFEROL 25 MCG (1000 UNITS) TAB PO SCH (11:00)
[2024-03-03] MEDS: EPOETIN ALFA 20,000 UNITS/ML VIAL IV SCH (11:36)
[2024-03-03] MEDS: IRON SUCROSE 100 MG in SYRINGE 0 ML IV ONE (11:37)
[2024-03-03] MEDS ORDERED: CALCIUM ACETATE 667 MG CAP/TAB PO SCH (12:00)
[2024-03-03] MEDS: carvediloL 12.5 MG TAB PO SCH (12:28)
--- NOTE | 2024-03-03 13:29 | Communication Note ---
Date of Service: March 03, [address] permcat tomorrow morning
[2024-03-03] MEDS: CALCIUM ACETATE 667 MG CAP/TAB PO SCH (13:43)
[2024-03-03] MEDS: CALCIUM GLUCONATE 1,000 MG/60 ML BAG IV SCH ×2 (13:43→14:25)
[2024-03-03] MEDS: LABETALOL HCL 100 MG TAB PO SCH (13:44)
[2024-03-03] MEDS ORDERED: CALCIUM CARBONATE 1250MG TAB PO SCH (14:00)
[2024-03-03] MEDS: HEPARIN SOD 5,000 UNIT/0.5 ML VIAL SQ SCH (14:25)
[2024-03-03] MEDS: hydrALAZINE HCL 20 MG/ML VIAL IV PRN (16:22)
--- NOTE | 2024-03-03 16:45 | Hospitalist Progress Note ---
Date of Service March 03, 2024 Assessment & Plan (1) Acute renal failure: Plan: 74-year-old female with past med history significant for hypomagnesia, obstructive sleep apnea on CPAP, hypertension, chronic diarrhea, CKD stage IV, myelodysplastic syndrome, anemia of chronic kidney disease, history of nephrolithiasis, history of breast cancer, presents with nausea /vomiting for the last few days and not able to eat comes to ER and found to have JAIRON, hyperkalemia and metabolic acidosis. Patient currently denies any diarrhea. She states she is micturating okay. Denies any fevers. Denies any abdominal pain. No chest pain. Denies shortness of breath. No fevers. No cough. No headache. Vision is okay. No runny nose or sore throat. Current resting comfortably and hemodynamically stable. Alert and oriented x 3. She states is taking chemo pill daily seems for myelodysplastic syndrome. Progressive CKD 4/5, now progressing to ESRD requiring dialysis-presented with uremic symptoms and significant lab abnormalities -Nephrology on board. Continue hemodialysis per nephrology. Plan for permacath tomorrow per vascular. Next HD on Thursday per nephro and then can be discharged for outpatient hemodialysis if already set up. Wire Roller notified. -Given IV Venofer and Epogen per nephrology. Hyperkalemia-resolved status post dialysis. Hypocalcemia-given more calcium gluconate. Also on PhosLo per nephrology. Recheck in a.m. Anion gap metabolic acidosis-due to CKD. Significantly improved with bicarb drip and dialysis. History of myelodysplastic syndrome- On Revlimid. Follows with heme-onc Sleep apnea- On CPAP nightly Mild elevation troponin-in setting of CKD. Doubt ACS. History of breast cancer diagnosed in 1989 treated with chemotherapy and surgery Hypertension-on amlodipine, labetalol. Hydralazine as needed. Nonocclusive thrombus identified in right internal jugular vein-incidental finding. Spoke with vascular surgery and they did not recommend any anticoagulation. Dysphagia-CT soft tissue neck reviewed and MRI was recommended. Spoke to patient at bedside and she would like to go ahead and get the MRI done. Ordered. DVT prophylaxis-subcu heparin Disposition-transfer to PCU. PermCath tomorrow. Hemodialysis on Thursday. Can be discharged over the weekend if outpatient dialysis set up prior to discharge. Updated son at bedside. Time spent-approximately 50 minutes Admission and Anticipated Discharge Date Admission Date: March 02, 2024 Subjective Patient was seen and examined at bedside in presence of son. She feels fine. No fever, chills, chest pain. No nausea or vomiting. Tolerating diet well. States making good urine. Discussed about nephrology recommendations regarding dialysis. Discussed about CT scan findings-do like to go ahead and get MRI. Discussed about nonocclusive chronic IJV occlusion and vascular recommendations regarding no need for anticoagulation. Review of Systems Review of Systems: All systems reviewed & are unremarkable except as noted in Subjective Physical Exam Physical Exam: General: Lying comfortably in bed, not in distress, on room air HEENT: EOMI, DARSHAN, MMM Chest: Clear breath sounds bilaterally, no wheezes or crackles CVS: Regular rate and rhythm, normal heart sounds, no murmur Abdomen: Soft, non tender, not distended, normal bowel sounds Neuro: Awake, alert, oriented, conversing well, non focal Extremities: No edema Tobar with clear urine Results & Data Results & Data Vital Signs (Past 12 Hours) Vital Signs Temp Pulse Pulse Resp BP BP Pulse Ox 03/03/24 16:13 36.8 C 03/03/24 16:08 177/96 H 03/03/24 16:08 90 20 94 03/03/24 16:00 84 15 03/03/24 16:00 90 03/03/24 15:13 88 10 L 03/03/24 14:10 192/99 H 03/03/24 14:10 96 H 20 03/03/24 14:00 200/103 H 03/03/24 14:00 100 H 20 03/03/24 13:19 189/98 H 03/03/24 13:19 116 H 22 97 03/03/24 13:17 97 H 21 96 03/03/24 12:55 36.6 C 92 H 189/101 H 03/03/24 12:30 97 H 190/88 H 03/03/24 12:00 98 H 181/94 H 03/03/24 11:30 74 185/107 H 03/03/24 11:00 97 H 172/72 H 03/03/24 10:30 96 H 169/107 H 03/03/24 10:00 92 H 162/88 H 03/03/24 09:32 36.7 C 92 H 03/03/24 09:08 94 H 20 98 03/03/24 08:08 36.8 C 03/03/24 08:00 162/102 H 03/03/24 08:00 92 H 18 98 03/03/24 07:00 175/89 H 03/03/24 07:00 91 H 20 97 03/03/24 06:15 92 H 18 97 03/03/24 06:15 156/91 H 03/03/24 06:00 36.7 C 96 H 16 156/91 H 95 03/03/24 05:09 36.7 C 17 164/91 H 98 03/03/24 05:01 36.8 C 93 H 17 164/91 H 98 O2 Del Method 03/03/24 16:13 03/03/24 16:08 03/03/24 16:08 03/03/24 16:00 03/03/24 16:00 03/03/24 15:13 03/03/24 14:10 03/03/24 14:10 03/03/24 14:00 03/03/24 14:00 03/03/24 13:19 03/03/24 13:19 03/03/24 13:17 03/03/24 12:55 03/03/24 12:30 03/03/24 12:00 03/03/24 11:30 03/03/24 11:00 03/03/24 10:30 03/03/24 10:00 03/03/24 09:32 03/03/24 09:08 03/03/24 08:08 03/03/24 08:00 03/03/24 08:00 03/03/24 07:00 03/03/24 07:00 03/03/24 06:15 03/03/24 06:15 03/03/24 06:00 Room Air 03/03/24 05:09 Room Air 03/03/24 05:01 Room Air
--- NOTE | 2024-03-03 19:16 | Magnetic Resonance Report ---
MRI OF THE CERVICAL SPINE WITHOUT IV CONTRAST CLINICAL HISTORY: Dysphagia. COMPARISON STUDY: CT of the neck dated 03/02/2024. TECHNIQUE: MRI of the cervical spine is performed utilizing various T1 and T2-weighted sequences in t he axial and sagittal planes. IV contrast was not administered for this examination. FINDINGS: Cervical spine: Vertebral body height and alignment is maintained throughout the cervical spine. Ther e is straightening of the cervical lordosis. The atlantodental articulation is maintained noting prod uctive degenerative change. The spinous processes appear intact. No destructive bony process is seen. Intervertebral discs: Disc desiccation and mild loss of height is seen throughout the cervical spine. Spinal cord: The cervical cord is normal in morphology and signal intensity. C2-C3: There is a central posterior disc protrusion which minimally effaces the ventral subarachnoid space. Mild facet arthropathy is of no consequence. The neural foramina are patent. C3-C4: A small central posterior disc protrusion which minimally effaces the ventral subarachnoid spa ce. Facet arthropathy is of no consequence. The neural foramina are patent. C4: A subligamentous disc extrusion, likely from the C4-C5 level effaces the ventral cord at this lev el. This is best seen on sagittal image #9, and measures up to 1.7 cm in craniocaudal length and 0.5 cm in AP diameter. The minimum AP canal diameter measures up to 8 mm. C4-C5: A central posterior disc protrusion minimally effaces the ventral cord. As noted above, there is likely a subligamentous superior disc extrusion at this level. Facet arthropathy is of no conseque nce. The neural foramina are patent. C5-C6: A posterior disc osteophyte complex abuts the ventral cord. Facet arthropathy is of no consequ ence. The neural foramina are patent. C6-C7: A posterior disc osteophyte complex eccentric to the left abuts the ventral cord. Facet arthro mickey is of no consequence. The neural foramina are patent. C7-T1: Unremarkable. Soft tissues: The prevertebral and paraspinous soft tissues are normal as imaged. Brain parenchyma: The visualized brain parenchyma at the skull base is normal as visualized noting ag e-related involutional change. IMPRESSION: 1. No acute bony abnormality is seen involving the cervical spine. 2. There is a large subligamentous disc extrusion posterior to C4 (likely from the C4-C5 level) which effaces the ventral cord. 3. The cervical cord is normal in morphology and signal intensity. 4. Milder spondylotic change at additional levels as above. See discussion for detailed level by vikas castillo analysis. Dictated: 03/03/2024 6:51 PM Transcribed: 03/03/2024 7:14 PM Donis [id number] THANH_Jeff [id number] Electronically signed by: Velasquez Flores M.D. 03/03/2024 7:15 PM
[2024-03-04 05:40] LABS: BUN Creatinine Ratio 8.3 (10-20); Calcium 6.9 mg/dl (8.6-10.3); Creatinine Clr Calc Pharmacy 7.1 ml/min; Est GFR (African American) 8.1 ml/min; Est GFR (Non-African American) 6.9 ml/min
[2024-03-04 06:13] LABS: Hematocrit (blood only) 24.1 % (37.0-47.0); Hemoglobin 7.3 g/dl (12.0-16.0); Mean Corpuscular Hemoglobin 23.5 pg (25.0-34.0); Mean Corpuscular Hgb Conc 30.3 g/dL (32.0-36.0); Mean Corpuscular Volume 77.7 fL (80.0-100.0); Platelet Count 84 K/uL (130-400); Platelet Estimate Decreased (Normal); RDW Coefficient of Variation 22.4 % (11.5-14.5); RDW Standard Deviation 63.2 fL (36.4-46.3); White Blood Count 5.29 K/ul (4.8-10.8)
--- NOTE | 2024-03-04 07:51 | History & Physical Bridge Note ---
Date of Service March 04, 2024 History & Physical Bridge Note I have examined the patient, reviewed the History & Physical and in the interval since the performance of the History & Physical I have noted the following changes of clinical significance: no changes noted
[2024-03-04] MEDS: CLINDAMYCIN/D5W 900 MG/50 ML BAG IV SCH (08:04)
[2024-03-04] MEDS: fentaNYL citrate PF 100 MCG/2 ML VIAL ONE (08:42)
[2024-03-04] MEDS: MIDAZOLAM HCL 1 MG/ML 2ML VIAL ONE (08:42)
--- NOTE | 2024-03-04 08:58 | Pre Anesthesia Assessment ---
Date of Service March 04, 2024 Pre Sedation Assessment Vital Signs Temp Pulse Pulse Pulse Resp BP BP 03/04/24 08:52 78 16 159/84 H 03/04/24 08:47 79 16 154/87 H 03/04/24 08:42 79 18 163/82 H 03/04/24 08:21 76 18 175/86 H 03/04/24 08:14 36.8 C 03/04/24 07:20 83 28 H 03/04/24 07:10 87 16 03/04/24 07:07 37.1 C 85 20 156/80 H 03/04/24 07:03 156/80 H 03/04/24 07:03 83 16 03/04/24 07:00 89 16 03/04/24 06:50 82 13 03/04/24 06:40 85 14 03/04/24 06:30 74 8 L 03/04/24 06:20 79 11 L 03/04/24 06:10 79 12 03/04/24 06:08 77 9 L 03/04/24 03:55 37.2 C 89 15 164/88 H 03/04/24 00:11 82 03/03/24 23:21 37.2 C 84 18 158/88 H 03/03/24 20:32 37.5 C 89 16 151/74 H 03/03/24 16:13 36.8 C 03/03/24 16:08 177/96 H 03/03/24 16:08 90 20 03/03/24 16:00 84 15 03/03/24 16:00 90 03/03/24 15:13 88 10 L 03/03/24 14:10 192/99 H 03/03/24 14:10 96 H 20 03/03/24 14:00 200/103 H 03/03/24 14:00 100 H 20 03/03/24 13:19 189/98 H 03/03/24 13:19 116 H 22 03/03/24 13:17 97 H 21 03/03/24 12:55 36.6 C 92 H 189/101 H 03/03/24 12:30 97 H 190/88 H 03/03/24 12:00 98 H 181/94 H 03/03/24 11:30 74 185/107 H 03/03/24 11:00 97 H 172/72 H 03/03/24 10:30 96 H 169/107 H 03/03/24 10:00 92 H 162/88 H 03/03/24 09:32 36.7 C 92 H 03/03/24 09:08 94 H 20 Pulse Ox O2 Del Method O2 Flow Rate 03/04/24 08:52 100 Oxymask 4 03/04/24 08:47 100 Oxymask 4 03/04/24 08:42 100 Oxymask 4 03/04/24 08:21 100 Oxymask 4 03/04/24 08:14 03/04/24 07:20 03/04/24 07:10 03/04/24 07:07 95 Room Air 03/04/24 07:03 03/04/24 07:03 94 03/04/24 07:00 95 03/04/24 06:50 03/04/24 06:40 03/04/24 06:30 03/04/24 06:20 03/04/24 06:10 03/04/24 06:08 03/04/24 03:55 97 Room Air 03/04/24 00:11 03/03/24 23:21 95 Room Air 03/03/24 20:32 95 Room Air 03/03/24 16:13 03/03/24 16:08 03/03/24 16:08 94 03/03/24 16:00 03/03/24 16:00 03/03/24 15:13 03/03/24 14:10 03/03/24 14:10 03/03/24 14:00 03/03/24 14:00 03/03/24 13:19 03/03/24 13:19 97 03/03/24 13:17 96 03/03/24 12:55 03/03/24 12:30 03/03/24 12:00 03/03/24 11:30 03/03/24 11:00 03/03/24 10:30 03/03/24 10:00 03/03/24 09:32 03/03/24 09:08 98 Cardiovascular RRR, no murmur, no edema Respiratory normal respiratory effort, lungs clear to auscultation Pre-Sedation Airway Assessment Smoking Status: Unknown if ever smoked Hx Sleep Apnea: Yes Short, Thick Neck: Yes Thyromental Distance: < 3.5 Finger Breadths Oral Cavity: + WNL Mallampati Class: III ASA: ASA3 NPO Status Date of Last Intake of Fluids: 03/03/24 Time of Last Intake of Fluids: 20:00 Date of Last Intake of Solid Food: 03/03/24 Time of Last Intake of Solid Foods: 20:00 Procedure Planning Contraindications for Sedation: none Current Medications Reviewed: Yes Notes The planned sedation has been discussed with the patient. Informed Consent was obtained. I have identified the patient, determined the appropriateness of sedation and have assessed the patient immediately prior to the procedure. All medicine(s) and interventions are by my order.
--- NOTE | 2024-03-04 09:02 | Operative Report ---
Post Operative Report Pre & Post Diagnosis Operation Date: 03/04/24 08:20 Pre-Op Diagnosis: JAIRON, HYPERKALEMIA, METABOLIC ACIDOSIS Post-Op Diagnosis: JAIRON, HYPERKALEMIA, METABOLIC ACIDOSIS I identified the patient and participated in the time-out.: Yes Procedure Operation Date: 03/04/24 08:20 Actual Procedures p Insertion Perm Catheter, Left Internal Jugular Approach, Ultrasound Localization of Left Internal Jugular Vein, Fluoroscopy for Positioning, Removal of temporary dialysis catheter, Moderate Sedation 0842 - 0984(Left) - Leandro Alexander MD Surgeon Leandro Alexander MD Sound Truck Operator none Estimated Blood Loss 5 Findings Consistent with Post-Op Diagnosis Specimens none Anesthesia Type RN Sedation Complications none Disposition Accompanied Patient To Recovery: No Disposition: Recovery Room Indications This is a this is a 74-year-old female with history of chronic kidney disease who went into acute renal failure. She has had dialysis through temporary catheter and is now in need of a PermCath. I have discussed the risks options and benefits of the procedure with the patient. The patient understands the risks options and benefits and agrees to the procedure. Description of Procedure Patient was taken to the angio suite and placed in the supine position. The left side of the neck and chest wall were prepped and draped in a sterile manner. The patient was identified and a timeout performed. Local anesthesia was then administered to the appropriate areas of the neck and chest wall. Ultrasound was then used to locate the left internal jugular vein. The vein compressed easily, had no filing defects, and was patent. The vein was then punctured under direct ultrasound imaging. A guidewire was then passed centrally under fluoroscopic imaging. A stab wound was then made in the anterior chest wall and a 19 cm permcath was passed from the stab wound on the chest wall to the puncture site on the neck. The puncture site was then dilated till the 14Fr peel away sheath was inserted. The permcath was then inserted through the sheath to a central position in the distal superior vena cava. The peel away sheath was then removed. The catheter was then sutured in place using nylon sutures. The puncture was then closed using a 4-0 Vicryl subcuticular suture. Dermabond was used for a dressing on the puncture site. Both ports asp irated and flushed easily and were then packed with heparin. A sterile dressing was applied to the catheter. The patient left the operation room in satisfactory condition and tolerated the procedure well. All needle and sponge counts were correct at the end of the procedure. I attest to the content of the Intraoperative Record and any orders documented therein. Any exceptions are noted below.
--- NOTE | 2024-03-04 09:03 | Post Anesthesia Assessment ---
Date of Service March 04, 2024 Post Sedation Assessment Vital Signs Temp Pulse Pulse Pulse Resp BP BP 03/04/24 08:56 79 16 156/81 H 03/04/24 08:52 78 16 159/84 H 03/04/24 08:47 79 16 154/87 H 03/04/24 08:42 79 18 163/82 H 03/04/24 08:21 76 18 175/86 H 03/04/24 08:14 36.8 C 03/04/24 07:20 83 28 H 03/04/24 07:10 87 16 03/04/24 07:07 37.1 C 85 20 156/80 H 03/04/24 07:03 156/80 H 03/04/24 07:03 83 16 03/04/24 07:00 89 16 03/04/24 06:50 82 13 03/04/24 06:40 85 14 03/04/24 06:30 74 8 L 03/04/24 06:20 79 11 L 03/04/24 06:10 79 12 03/04/24 06:08 77 9 L 03/04/24 03:55 37.2 C 89 15 164/88 H 03/04/24 00:11 82 03/03/24 23:21 37.2 C 84 18 158/88 H 03/03/24 20:32 37.5 C 89 16 151/74 H 03/03/24 16:13 36.8 C 03/03/24 16:08 177/96 H 03/03/24 16:08 90 20 03/03/24 16:00 84 15 03/03/24 16:00 90 03/03/24 15:13 88 10 L 03/03/24 14:10 192/99 H 03/03/24 14:10 96 H 20 03/03/24 14:00 200/103 H 03/03/24 14:00 100 H 20 03/03/24 13:19 189/98 H 03/03/24 13:19 116 H 22 03/03/24 13:17 97 H 21 03/03/24 12:55 36.6 C 92 H 189/101 H 03/03/24 12:30 97 H 190/88 H 03/03/24 12:00 98 H 181/94 H 03/03/24 11:30 74 185/107 H 03/03/24 11:00 97 H 172/72 H 03/03/24 10:30 96 H 169/107 H 03/03/24 10:00 92 H 162/88 H 03/03/24 09:32 36.7 C 92 H 03/03/24 09:08 94 H 20 Pulse Ox O2 Del Method O2 Flow Rate 03/04/24 08:56 100 Oxymask 4 03/04/24 08:52 100 Oxymask 4 03/04/24 08:47 100 Oxymask 4 03/04/24 08:42 100 Oxymask 4 03/04/24 08:21 100 Oxymask 4 03/04/24 08:14 03/04/24 07:20 03/04/24 07:10 03/04/24 07:07 95 Room Air 03/04/24 07:03 03/04/24 07:03 94 03/04/24 07:00 95 03/04/24 06:50 03/04/24 06:40 03/04/24 06:30 03/04/24 06:20 03/04/24 06:10 03/04/24 06:08 03/04/24 03:55 97 Room Air 03/04/24 00:11 03/03/24 23:21 95 Room Air 03/03/24 20:32 95 Room Air 03/03/24 16:13 03/03/24 16:08 03/03/24 16:08 94 03/03/24 16:00 03/03/24 16:00 03/03/24 15:13 03/03/24 14:10 03/03/24 14:10 03/03/24 14:00 03/03/24 14:00 03/03/24 13:19 03/03/24 13:19 97 03/03/24 13:17 96 03/03/24 12:55 03/03/24 12:30 03/03/24 12:00 03/03/24 11:30 03/03/24 11:00 03/03/24 10:30 03/03/24 10:00 03/03/24 09:32 03/03/24 09:08 98 Recovery Score Activity: Moves 4 extremities Respiration: Deep Breath/Cough Circulation: +/-20% PreAnes Value Consciousness: Arouseable (by name) Oxygen Saturation: O2 needed for >90% Post Anesthesia Score: 8 Discharge Sedation Level of Care: Fast Track Phase II Post Sedation Plan On clinical assessment, the patient appears to have tolerated the sedation without complications. Patient is recovering as anticipated. Patient will continue to be monitored by nursing and may be discharged when sedation discharge criteria are met per below protocol. Upon Completions of procedure up to 15 minutes continue every 5 minute vital signs and the P.A.R. score; then discharge to a Phase I or Fast Track to Phase II per the following guidelines: * Discharge Patient to appropriate Phase II area if PAR is 8 or greater or return to pre- procedure baseline. The post - procedure orders will be as directed. * If PAR score is less than 8 or not return to pre-procedure baseline then patient will follow Phase I monitoring till PAR is reached for Phase II. The Phase I may be done in procedure room or may call to secure a Phase I area. * If naloxone or flumazenil are used for reversal, hold in Phase I for continued monitoring from when last reversal dose was given for a minimum of 60 minutes or longer pending the nurse and/or physician discretion of patient condition before discharge to Phase II. Please call the Sedation Physician to re-evaluate and complete post-note for discharge to Phase II area. Do NOT discharge from procedure sedation or Phase 1 until post- sedation evaluation note is complete by procedure /sedation MD Sedation Discharge Instructions to be given to the patient at discharge to home.
--- NOTE | 2024-03-04 09:12 | Nephrology Progress Note ---
Date of Service March 04, 2024 Assessment & Plan Admission and Anticipated Discharge Date Admission Date: March 02, 2024 Subjective Assessment & Plan (1) Acute renal failure: (2) Acute hyperkalemia: (3) CKD (chronic kidney disease) stage 4, GFR 15-29 ml/min: She already had quite advanced CKD 4 Almost 5 with last creat of 3.2. She now presents with full blown uremic Symptoms---Severe Nausea, Metallic taste loss of appetite. She looks Uremic with her facial color also. has extreme electrolyte issues related with ESRD---Low Ca, high Phos, Super low bicarb, met acidosis, Critical Hyperkalemia. Despite ESRD she has Low mag which is very unusual. This is not JAIRON but progression of CKD 4/5 and now ESRD needing Dialysis. She will need salvage determiner Dialysis and getting Tunnelled HD catheter. Plan for outpt Dialysis at [facility] under my care. bilingual patient support caseworker did start the paperwork. tunnelled HD cath Thursday, she can have Dialysis On Thursday and then be discharged for outpt Dialysis. Most likely they will be TTS schedule. Discussed in detail with patient and and updated the situation and they have agreed. Hypocalcemia--Likely from uremia/ESRD. Start Cholecalciferol. Added Calcitriol also. Continue Calcium Acetate for high Phos and Low Ca++. Plus give Iv calcium gluconate 3 gm. mag is normal today. We do not have a higher Ca bath so continue 2.5 Ca ++ bath. Ca will get up slowly with this regimen. Did go up quite a lot from yesterday. Anemia--Will do venofer 100 mg iv [place] epo 20242 units. Will also ask her outpt bore mill operator for plastic given her issue with MDS. Given MDS + ESRD very hard to raise her hgb level. S---feels better. No SOb. No edema. Labs overall better. Getting new Tunnelled hd cath. Physical Exam Physical Exam: General- Not in distress. Looks ashen color Head- atraumatic. MM moist Neck- supple, no JVD. Lungs- clear to auscultation no wheezing or crackles. Heart- regular rhythm; no murmur, no gallop. Abdomen- soft, nontender, no distension. Extremities- no pretibial edema, no erythema seen Neuro- alert, oriented x 3 no dysarthria Results & Data Vital Signs (Past 12 Hours) Vital Signs Temp Pulse Pulse Resp BP BP Pulse Ox 03/04/24 09:01 81 16 142/78 H 96 03/04/24 08:56 79 16 156/81 H 100 03/04/24 08:52 78 16 159/84 H 100 03/04/24 08:47 79 16 154/87 H 100 03/04/24 08:42 79 18 163/82 H 100 03/04/24 08:21 76 18 175/86 H 100 03/04/24 08:14 36.8 C 03/04/24 07:20 83 28 H 03/04/24 07:10 87 16 03/04/24 07:07 37.1 C 85 20 156/80 H 95 03/04/24 07:03 156/80 H 03/04/24 07:03 83 16 94 03/04/24 07:00 89 16 95 03/04/24 06:50 82 13 03/04/24 06:40 85 14 03/04/24 06:30 74 8 L 03/04/24 06:20 79 11 L 03/04/24 06:10 79 12 03/04/24 06:08 77 9 L 03/04/24 03:55 37.2 C 89 15 164/88 H 97 03/04/24 00:11 82 03/03/24 23:21 37.2 C 84 18 158/88 H 95 O2 Del Method O2 Flow Rate 03/04/24 09:01 Room Air 03/04/24 08:56 Oxymask 4 03/04/24 08:52 Oxymask 4 03/04/24 08:47 Oxymask 4 03/04/24 08:42 Oxymask 4 03/04/24 08:21 Oxymask 4 03/04/24 08:14 03/04/24 07:20 03/04/24 07:10 03/04/24 07:07 Room Air 03/04/24 07:03 03/04/24 07:03 03/04/24 07:00 03/04/24 06:50 03/04/24 06:40 03/04/24 06:30 03/04/24 06:20 03/04/24 06:10 03/04/24 06:08 03/04/24 03:55 Room Air 03/04/24 00:11 03/03/24 23:21 Room Air
[2024-03-04] MEDS: LIDOCAINE 1% LOCAL 20 ML VIAL ONE (09:21)
[2024-03-04] MEDS: lisinopril 20 MG TAB PO SCH (10:13)
[2024-03-04] MEDS: CALCITRIOL 0.25 MCG CAPSULE PO SCH (10:13)
[2024-03-04] MEDS: CALCIUM GLUCONATE 1,000 MG/60 ML BAG IV SCH (10:17)
[2024-03-04] MEDS: HEPARIN SOD (PORCINE) 5,000 UNITS/ML VIAL ONE (10:39)
[2024-03-04] MEDS ORDERED: EPOETIN ALFA 20,000 UNITS/ML VIAL IV SCH (11:00)
--- NOTE | 2024-03-04 11:00 | Hospitalist Progress Note ---
Date of Service March 04, 2024 Assessment & Plan (1) CKD (chronic kidney disease) stage 5, GFR less than 15 ml/min: (2) ESRD on hemodialysis: (3) High blood pressure: (4) Hypocalcemia: (5) Anemia: (6) Myelodysplastic syndrome: (7) Hyperkalemia: Plan 74-year-old female with past med history significant for hypomagnesia, obstructive sleep apnea on CPAP, hypertension, chronic diarrhea, CKD stage IV, myelodysplastic syndrome, anemia of chronic kidney disease, history of ne phrolithiasis, history of breast cancer, presents with nausea /vomiting for the last few days and not able to eat comes to ER and found to have JAIRON, hyperkalemia and metabolic acidosis. Patient currently denies any diarrhea. She states she is micturating okay. Denies any fevers. Denies any abdominal pain. No chest pain. Denies shortness of breath. No fevers. No cough. No headache. Vision is okay. No runny nose or sore throat. Current resting comfortably and hemodynamically stable. Alert and oriented x 3. She states is taking chemo pill daily seems for myelodysplastic syndrome. ESRD now on HD since this admission - presented with uremic symptoms and significant lab abnormalities - S/p emergent hemodialysis with improvement in symptoms and labs. - S/p permacath placed today by vascular - Per nephro- Next HD tomorrow and can be discharged for outpatient hemodialysis if set up by then. Clinical Tech working on the paperwork - Given IV Venofer and Epogen per nephrology. Anemia- Hb 7.3 today. S/p iv venofer and epocrit. Per nephro, given her MDS and ESRD, it will be difficult to raise her Hb. Would prefer 1 U PRBC and patient is agreeable. Will defer to nephro. Likely can transfuse during HD. Nonocclusive thrombus identified in right internal jugular vein, likely chronic, 3 cm linear thrombus- incidental finding. Spoke with vascular surgery and Dr Patterson- no need for anticoagulation. Dysphagia-CT soft tissue neck and MRI reviewed. Spoke to patient at bedside and she would like to go ahead and get the MRI done. Ordered. Hypocalcemia-improving. Now on PhosLo per nephrology. Recheck in a.m. Hyperkalemia-resolved status post dialysis. Anion gap metabolic acidosis-due to CKD. resolved with bicarb drip and dialysis. History of myelodysplastic syndrome- Discussed with Dr Patterson- continue revlimid Sleep apnea- On CPAP nightly Mild elevation troponin-in setting of CKD. Doubt ACS. History of breast cancer diagnosed in 1989 treated with chemotherapy and surgery Hypertension-on amlodipine, labetalol. Will add lisinopril for better control now that she is on permanent HD per nephro. HLZ prn. DVT prophylaxis-subcu heparin Disposition- HD tomorrow. Awaiting OP HD set up prior to discharge home. Time spent-approximately 50 minutes Admission and Anticipated Discharge Date Admission Date: March 02, 2024 Physical Exam Physical Exam: General: Lying comfortably in bed, not in distress, on room air HEENT: EOMI, DARSHAN, MMM Chest: Clear breath sounds bilaterally, no wheezes or crackles CVS: Regular rate and rhythm, normal heart sounds, no murmur Abdomen: Soft, non tender, not distended, normal bowel sounds Neuro: Awake, alert, oriented, conversing well, non focal Extremities: No edema Tobar with clear urine Results & Data Results & Data Vital Signs (Past 12 Hours) Vital Signs Temp Pulse Pulse Resp BP BP Pulse Ox 03/04/24 09:24 36.8 C 03/04/24 09:01 81 16 142/78 H 96 03/04/24 08:56 79 16 156/81 H 100 03/04/24 08:52 78 16 159/84 H 100 03/04/24 08:47 79 16 154/87 H 100 03/04/24 08:42 79 18 163/82 H 100 03/04/24 08:21 76 18 175/86 H 100 03/04/24 08:14 36.8 C 03/04/24 08:00 81 15 03/04/24 07:45 77 8 L 03/04/24 07:30 81 14 03/04/24 07:20 83 28 H 03/04/24 07:10 87 16 03/04/24 07:07 37.1 C 85 20 156/80 H 95 03/04/24 07:03 156/80 H 03/04/24 07:03 83 16 94 03/04/24 07:00 89 16 95 03/04/24 06:50 82 13 03/04/24 06:40 85 14 03/04/24 06:30 74 8 L 03/04/24 06:20 79 11 L 03/04/24 06:10 79 12 03/04/24 06:08 77 9 L 03/04/24 03:55 37.2 C 89 15 164/88 H 97 03/04/24 00:11 82 03/03/24 23:21 37.2 C 84 18 158/88 H 95 O2 Del Method O2 Flow Rate 03/04/24 09:24 03/04/24 09:01 Room Air 03/04/24 08:56 Oxymask 4 03/04/24 08:52 Oxymask 4 03/04/24 08:47 Oxymask 4 03/04/24 08:42 Oxymask 4 03/04/24 08:21 Oxymask 4 03/04/24 08:14 03/04/24 08:00 03/04/24 07:45 03/04/24 07:30 03/04/24 07:20 03/04/24 07:10 03/04/24 07:07 Room Air 03/04/24 07:03 03/04/24 07:03 03/04/24 07:00 03/04/24 06:50 03/04/24 06:40 03/04/24 06:30 03/04/24 06:20 03/04/24 06:10 03/04/24 06:08 03/04/24 03:55 Room Air 03/04/24 00:11 03/03/24 23:21 Room Air
--- NOTE | 2024-03-04 11:27 | Orthopedic Consultation ---
Date of Consultation March 04, 2024 Assessment & Plan (1) Cervical disc herniation: Patient is a large cervical disc herniation extending from C3 to see 5. I discussed the findings with the patient and family member were in the room today. Right now medically she is not a good candidate for any type of surgical approach but this is likely going to need to be addressed. Would like to see her in the office in approximately 2 weeks then contact our office at [facility] [phone]. Dr. Cai and I reviewed the films and he is in agreement with this treatment plan. History of Present Illness Attending Physician: Arvind Strange MD History of Present Illness Patient is a pleasant 74-year-old female who was admitted through the emergency department on 03/01/2024. She presented with nausea vomiting was found to have acute renal failure and need for dialysis. We are consulted due to findings on her MRI consisting of a large cervical disc herniation. According the patient she has been having burning pain and cramping in her arms for a number of years. She has had some issues with balance but is not sure what was happening. She is not having constant radicular pain. She has not noted any significant weakness in the arms. She denies any other numbness, tingling, or paresthesias. Allergies Allergy/AdvReac Type Severity Reaction Status Date / Time ampicillin Allergy Intermediate Rash Verified 03/01/24 20:08 codeine Allergy Intermediate Rash Verified 03/01/24 20:08 Iodinated Contrast Media Allergy Intermediate ITCHY RASH Verified 03/01/24 20:08 Penicillins Allergy Intermediate SWELLING Verified 03/01/24 20:08 red dye Allergy Intermediate Hives Verified 03/01/24 20:08 Home Medications Medication Instructions Recorded Confirmed Type labetalol 100 mg tablet 100 mg PO BID 09/09/23 03/01/24 History amlodipine 10 mg tablet 10 mg PO QAM 12/19/23 03/01/24 History cholecalciferol (vitamin D3) 25 25 mcg PO DAILY 03/01/24 03/01/24 History mcg (1,000 unit) capsule (Vitamin D3) fluticasone propionate 50 2 spray intranasal DAILY 03/01/24 03/01/24 History mcg/actuation nasal spray,suspension loratadine 10 mg tablet (Claritin) 10 mg PO HS 03/01/24 03/01/24 History Patient History Medical History Leukemia High blood pressure Breast cancer Esophageal hernia Kidney failure History of fractured vertebra Surgical History H/O shoulder surgery History of left mastectomy Family History Other No pertinent family history Social History Smoking Status: Unknown if ever smoked Hx Alcohol Use: No Hx Substance Use: No Preferred Language: Cuban Communication Ability: Effective Weekend Receptionist Required: No Beliefs That Will Affect Care: None Current Living Situation: Spouse and Family Current Living Situation Comment: lives with and daughter current occupational status: retired Feels Safe at Home: Yes Assistive Devices: None Physical Exam Physical Exam: Patient's bedside exam is limited secondary to her recent procedure. She has preserved strength in her upper extremities digital operations analyst strength is full. Sensations intact to light touch. Range of motion of the cervical spine was not assessed. No Lhermitte's phenomenon. She has negative Violeta signs bilaterally. There are several beats of clonus in both of her feet. Cardiovascular exam reveals no gross abnormality. Visual alegria are grossly intact and the patient is alert and oriented. Results & Data Vital Signs (Past 12 Hours) Vital Signs Temp Pulse Pulse Resp BP BP Pulse Ox 03/04/24 09:24 36.8 C 03/04/24 09:01 81 16 142/78 H 96 03/04/24 08:56 79 16 156/81 H 100 03/04/24 08:52 78 16 159/84 H 100 03/04/24 08:47 79 16 154/87 H 100 03/04/24 08:42 79 18 163/82 H 100 03/04/24 08:21 76 18 175/86 H 100 03/04/24 08:14 36.8 C 03/04/24 08:00 81 15 03/04/24 07:45 77 8 L 03/04/24 07:30 81 14 03/04/24 07:20 83 28 H 03/04/24 07:10 87 16 03/04/24 07:07 37.1 C 85 20 156/80 H 95 03/04/24 07:03 156/80 H 03/04/24 07:03 83 16 94 03/04/24 07:00 89 16 95 03/04/24 06:50 82 13 03/04/24 06:40 85 14 03/04/24 06:30 74 8 L 03/04/24 06:20 79 11 L 03/04/24 06:10 79 12 03/04/24 06:08 77 9 L 03/04/24 03:55 37.2 C 89 15 164/88 H 97 03/04/24 00:11 82 O2 Del Method O2 Flow Rate 03/04/24 09:24 03/04/24 09:01 Room Air 03/04/24 08:56 Oxymask 4 03/04/24 08:52 Oxymask 4 03/04/24 08:47 Oxymask 4 03/04/24 08:42 Oxymask 4 03/04/24 08:21 Oxymask 4 03/04/24 08:14 03/04/24 08:00 03/04/24 07:45 03/04/24 07:30 03/04/24 07:20 03/04/24 07:10 03/04/24 07:07 Room Air 03/04/24 07:03 03/04/24 07:03 03/04/24 07:00 03/04/24 06:50 03/04/24 06:40 03/04/24 06:30 03/04/24 06:20 03/04/24 06:10 03/04/24 06:08 03/04/24 03:55 Room Air 03/04/24 00:11 Diagnostic Findings MRI of the cervical spine form recently was reviewed. This reveals a large disc herniation comes from the C3-4 disc space behind the C4 vertebral body to the C4-5 disc space. This is because indentation thecal sac and alteration in the contour of the cord. I do not appreciate any gliosis in the cord. There is a loss of cervical lordosis. No other high-grade stenosis or large disc herniations are noted.
[2024-03-04] MEDS: HEPARIN SOD 5,000 UNIT/0.5 ML VIAL SQ SCH (14:06)
[2024-03-04] MEDS ORDERED: SODIUM CHLORIDE 0.9% 250 ML IV PRN (16:39)
--- NOTE | 2024-03-05 05:58 | Electrocardiogram Report ---
Test Reason : Blood Pressure : / mmHG Vent. Rate : 080 BPM Atrial Rate : 080 BPM P-R Int : 138 ms QRS Dur : 080 ms QT Int : 452 ms P-R-T Axes : 012 -11 106 degrees QTc Int : 521 ms Sinus rhythm with Premature atrial complexes Moderate voltage criteria for LVH, may be normal variant Prolonged QT Abnormal ECG When compared with ECG of 03-MAR-2024 04:18, Premature ventricular complexes are no longer Present Premature atrial complexes are now Present Confirmed by Jef Lucas ([id number]) on 03/05/2024 5:58:16 AM Referred By: REFERRED SELF Confirmed By:Dale Lucas
[2024-03-05] MEDS ORDERED: SODIUM CHLORIDE 0.9% 1,000 ML IV PRN (07:00)
[2024-03-05 07:01] LABS: Hematocrit (blood only) 22.3 % (37.0-47.0); Hemoglobin 6.8 g/dl (12.0-16.0); Mean Corpuscular Hemoglobin 23.3 pg (25.0-34.0); Mean Corpuscular Hgb Conc 30.5 g/dL (32.0-36.0); Mean Corpuscular Volume 76.4 fL (80.0-100.0); Platelet Count 97 K/uL (130-400); RDW Coefficient of Variation 22.2 % (11.5-14.5); RDW Standard Deviation 61.3 fL (36.4-46.3); Red Blood Count 2.92 M/uL (4.20-5.40); White Blood Count 8.19 K/ul (4.8-10.8)
[2024-03-05] MEDS ORDERED: SODIUM CHLORIDE 0.9% 250 ML IV PRN (07:25)
[2024-03-05 07:28] LABS: BUN Creatinine Ratio 8.5 (10-20); Calcium 6.6 mg/dl (8.6-10.3); Creatinine Clr Calc Pharmacy 6.2 ml/min; Est GFR (African American) 6.1 ml/min; Est GFR (Non-African American) 5.3 ml/min; Magnesium 1.6 mg/dl (1.7-2.4); Phosphorus 5.8 mg/dl (2.5-4.9); Potassium 3.7 mmol/L (3.5-5.1)
[2024-03-05 07:51] LABS: Estimated Average Glucose 123 mg/dl; Hemoglobin A1C 5.9 % (4.5-5.6)
--- NOTE | 2024-03-05 10:26 | Dialysis Progress Note ---
Date of Service March 05, 2024 Assessment & Plan Admission and Anticipated Discharge Date Admission Date: March 02, 2024 Subjective Assessment & Plan (1) Acute renal failure: (2) Acute hyperkalemia: (3) CKD (chronic kidney disease) stage 4, GFR 15-29 ml/min: She already had quite advanced CKD 4 Almost 5 with last creat of 3.2. She now presents with full blown uremic Symptoms---Severe Nausea, Metallic taste loss of appetite. She looks Uremic with her facial color also. has extreme electrolyte issues related with ESRD---Low Ca, high Phos, Super low bicarb, met acidosis, Critical Hyperkalemia. Despite ESRD she has Low mag which is very unusual. This is not JAIRON but progression of CKD 4/5 and now ESRD needing Dialysis. She will need long distance operator Dialysis and will need Tunnelled HD catheter. Plan for outpt Dialysis at [facility] under my care. has chair time Thursday at 430 AM. hgb low from MDS And ESRD not bleeding. Low Ca++ from ESRD Hypocalcemia--Likely from uremia/ESRD. Raise Cholecalciferol. Calcium Acetate for high Phos and Low Ca++. We do not have a higher Ca bath so continue 2.5 Ca ++ bath Anemia--hgb < 7 today. prbc. getting epo [id number] units. Will also ask her outpt field mechanic given her issue with MDS. With MDS and ESRD hard to maintain hgb. S---feels better. No SOB. No edema. Labs overall better. Cath is working fine. Physical Exam Physical Exam: General- Not in distress. Looks ashen color Head- atraumatic. MM moist Neck- supple, no JVD. Lungs- clear to auscultation no wheezing or crackles. Heart- regular rhythm; no murmur, no gallop. Abdomen- soft, nontender, no distension. Extremities- no pretibial edema, no erythema seen Neuro- alert, oriented x 3 no dysarthria Results & Data Vital Signs (Past 12 Hours) Vital Signs Temp Pulse Pulse Resp BP BP Pulse Ox 03/05/24 10:15 36.8 C 80 174/68 H 03/05/24 10:05 36.7 C 82 18 171/70 H 03/05/24 10:00 36.7 C 82 171/70 H 03/05/24 09:30 83 158/74 H 03/05/24 09:07 82 156/72 H 03/05/24 09:02 36.7 C 84 03/05/24 07:15 36.7 C 81 18 146/67 H 94 03/05/24 03:21 36.8 C 78 18 150/75 H 94 O2 Del Method 03/05/24 10:15 03/05/24 10:05 03/05/24 10:00 03/05/24 09:30 03/05/24 09:07 03/05/24 09:02 03/05/24 07:15 Room Air 03/05/24 03:21 Room Air
[2024-03-05] MEDS: IRON SUCROSE 100 MG in SYRINGE 0 ML IV ONE (10:31)
[2024-03-05] MEDS: EPOETIN ALFA 20,000 UNITS/ML VIAL IV ONE (11:11)
[2024-03-05 11:22] LABS: HBSAG NON-REACTIVE (NON-REACTIVE); Hepatitis B Surface Ab, Quant <5 mIU/mL (> OR = 10)
--- NOTE | 2024-03-05 12:47 | Hospitalist Progress Note ---
Date of Service March 05, 2024 Assessment & Plan (1) CKD (chronic kidney disease) stage 5, GFR less than 15 ml/min: (2) ESRD on hemodialysis: (3) High blood pressure: (4) Hypocalcemia: (5) Anemia: (6) Myelodysplastic syndrome: (7) Hyperkalemia: Plan 74-year-old female with past med history significant for hypomagnesia, obstructive sleep apnea on CPAP, hypertension, chronic diarrhea, CKD stage IV, myelodysplastic syndrome, anemia of chronic kidney disease, history of ne phrolithiasis, history of breast cancer, presents with nausea /vomiting for the last few days and not able to eat comes to ER and found to have JAIRON, hyperkalemia and metabolic acidosis. Patient currently denies any diarrhea. She states she is micturating okay. Denies any fevers. Denies any abdominal pain. No chest pain. Denies shortness of breath. No fevers. No cough. No headache. Vision is okay. No runny nose or sore throat. Current resting comfortably and hemodynamically stable. Alert and oriented x 3. She states is taking chemo pill daily seems for myelodysplastic syndrome. ESRD now on HD since this admission - presented with uremic symptoms and significant lab abnormalities - S/p emergent hemodialysis with improvement in symptoms and labs. - S/p permacath placed today by vascular - Per nephro- Next HD tomorrow and can be discharged for outpatient hemodialysis if set up by then. [employer] working on the paperwork - Given IV Venofer and Epogen per nephrology. Anemia- Hb 6.8 today. S/p iv venofer and epocrit. Getting 1 U of PRBC at dialysis today. Per nephro, given her MDS and ESRD, it will be difficult to raise her Hb. Nonocclusive thrombus identified in right internal jugular vein, likely chronic, 3 cm linear thrombus- incidental finding. Spoke with vascular surgery and Dr Patterson- no need for anticoagulation. Dysphagia-CT soft tissue neck and MRI reviewed. Seen by ortho spine- recommended OP follow up in 2 weeks. Hypocalcemia-improving. Now on PhosLo per nephrology. Recheck in a.m. Hypomagnesemia- repleted, recheck in am Hyperkalemia-resolved status post dialysis. Anion gap metabolic acidosis-due to CKD. resolved with bicarb drip and dialysis. History of myelodysplastic syndrome- Discussed with Dr Patterson- continue revlimid Sleep apnea- On CPAP nightly Mild elevation troponin-in setting of CKD. Doubt ACS. History of breast cancer diagnosed in 1989 treated with chemotherapy and surgery Hypertension-on amlodipine, labetalol, lisinopril. Nephro on board. HLZ prn. DVT prophylaxis-subcu heparin Disposition- HD today. Awaiting OP HD set up prior to discharge home. Time spent-approximately 50 minutes Updated at bedside Admission and Anticipated Discharge Date Admission Date: March 02, 2024 Subjective Patient was seen and examined at bedside. She feels fine. No fever, chills, chest pain, SOB, N/V. No new issues. Review of Systems 2 Review of Systems: All systems reviewed & are unremarkable except as noted in Subjective Physical Exam Physical Exam: General: Lying comfortably in bed, not in distress, on room air HEENT: EOMI, DARSHAN, MMM Chest: Clear breath sounds bilaterally, no wheezes or crackles CVS: Regular rate and rhythm, normal heart sounds, no murmur Abdomen: Soft, non tender, not distended, normal bowel sounds Neuro: Awake, alert, oriented, conversing well, non focal Extremities: No edema. RUE ecchymoses Tobar with clear urine Results & Data Results & Data Vital Signs (Past 12 Hours) Vital Signs Temp Pulse Pulse Resp BP BP Pulse Ox 03/05/24 11:00 37.2 C 77 193/76 H 03/05/24 11:00 37.2 C 77 20 193/76 H 03/05/24 10:45 78 189/76 H 03/05/24 10:30 36.7 C 76 181/85 H 03/05/24 10:15 36.8 C 80 174/68 H 03/05/24 10:05 36.7 C 82 18 171/70 H 03/05/24 10:00 36.7 C 82 171/70 H 03/05/24 09:30 83 158/74 H 03/05/24 09:07 82 156/72 H 03/05/24 09:02 36.7 C 84 03/05/24 07:15 36.7 C 81 18 146/67 H 94 03/05/24 03:21 36.8 C 78 18 150/75 H 94 O2 Del Method 03/05/24 11:00 03/05/24 11:00 03/05/24 10:45 03/05/24 10:30 03/05/24 10:15 03/05/24 10:05 03/05/24 10:00 03/05/24 09:30 03/05/24 09:07 03/05/24 09:02 03/05/24 07:15 Room Air 03/05/24 03:21 Room Air Laboratory Results Short CBC 03/05/24 Range/Units 06:34 WBC 8.19 (4.8-10.8) K/ul Hgb 6.8 L* (12.0-16.0) g/dl Hct 22.3 L (37.0-47.0) % Plt Count 97 L (130-400) K/uL BMP 03/05/24 06:34 Sodium 134 L Potassium 3.7 Chloride 97 L Carbon Dioxide 25 BUN 60 H Creatinine 7.07 H* D Glucose 131 H Calcium 6.6 L (3) High blood pressure Hypertension type: renovascular hypertension Qualified Code(s): I15.0 - Renovascular hypertension
[2024-03-05] MEDS: MAGNESIUM CHLORIDE W/CALCIUM 64MG DELAYED REL TAB PO SCH (13:30)
[2024-03-05] MEDS ORDERED: hydrALAZINE HCL 20 MG/ML VIAL IV PRN (15:29)
[2024-03-05] MEDS: LENALIDOMIDE 2.5 MG PO SCH (20:33)
[2024-03-05] MEDS: lisinopril 20 MG TAB PO SCH (20:33)
[2024-03-06 06:30] LABS: BUN Creatinine Ratio 7.5 (10-20); Calcium 6.9 mg/dl (8.6-10.3); Creatinine Clr Calc Pharmacy 9.9 ml/min; Est GFR (African American) 10.8 ml/min; Est GFR (Non-African American) 9.4 ml/min; Magnesium 1.6 mg/dl (1.7-2.4); Potassium 3.5 mmol/L (3.5-5.1)
[2024-03-06 06:35] LABS: Hematocrit (blood only) 27.1 % (37.0-47.0); Hemoglobin 8.3 g/dl (12.0-16.0); Mean Corpuscular Hemoglobin 24.9 pg (25.0-34.0); Mean Corpuscular Hgb Conc 30.6 g/dL (32.0-36.0); Mean Corpuscular Volume 81.4 fL (80.0-100.0); Nucleated RBC # (auto) 0.04 K/uL (0.00-0.12); Nucleated RBC % (auto) 0.4 %; Platelet Count 77 K/uL (130-400); RDW Coefficient of Variation 21.7 % (11.5-14.5); RDW Standard Deviation 65.2 fL (36.4-46.3); Red Blood Count 3.33 M/uL (4.20-5.40); White Blood Count 11.07 K/ul (4.8-10.8)
[2024-03-06] MEDS: CALCITRIOL 0.25 MCG CAPSULE PO SCH (08:58)
[2024-03-06] MEDS: CHOLECALCIFEROL 25 MCG (1000 UNITS) TAB PO SCH (08:59)
[2024-03-06] MEDS ORDERED: Nursing to Pharmacy Communication SCH (10:30)
--- NOTE | 2024-03-06 12:33 | Nephrology Progress Note ---
Date of Service March 06, 2024 Assessment & Plan Admission and Anticipated Discharge Date Admission Date: March 02, 2024 Subjective Assessment & Plan (1) Acute renal failure: (2) Acute hyperkalemia: (3) CKD (chronic kidney disease) stage 4, GFR 15-29 ml/min: She already had quite advanced CKD 4 Almost 5 with last creat of 3.2. She now presents with full blown uremic Symptoms---Severe Nausea, Metallic taste loss of appetite. She looks Uremic with her facial color also. has extreme electrolyte issues related with ESRD---Low Ca, high Phos, Super low bicarb, met acidosis, Critical Hyperkalemia. Despite ESRD she has Low mag which is very unusual. This is not JAIRON but progression of CKD 4/5 and now ESRD needing Dialysis. She will need terminal make up operator Dialysis and will need Tunnelled HD catheter. has been set up for outpt Dialysis at [facility] under my care. Has chair time Thursday at 430 AM. hgb low from MDS And ESRD not bleeding. Low Ca++ from ESRD--will get better slowly. add Calcium gluconate 3 gm while inpt. Also add TUMS 1500 bid. Hypocalcemia--Likely from uremia/ESRD. Raise Cholecalciferol. Calcium Acetate for high Phos and Low Ca++. We do not have a higher Ca bath so continue 2.5 Ca ++ bath Anemia--had prbc. hgb 8+ today. getting epo 27160 units. On revlimid for MDS. With MDS and ESRD hard to maintain hgb. S---feels better. Feel more hungry now. No SOB. No edema. Cath is working fine. Physical Exam Physical Exam: General- Not in distress. Looks ashen color Head- atraumatic. MM moist Neck- supple, no JVD. Lungs- clear to auscultation no wheezing or crackles. Heart- regular rhythm; no murmur, no gallop. Abdomen- soft, nontender, no distension. Extremities- no pretibial edema, no erythema seen Neuro- alert, oriented x 3 no dysarthria Results & Data Vital Signs (Past 12 Hours) Vital Signs Temp Pulse Pulse Resp BP Pulse Ox Pulse Ox 03/06/24 10:31 36.7 C 75 18 145/67 H 93 03/06/24 07:43 03/06/24 07:40 36.7 C 78 18 162/77 H 95 03/06/24 07:22 74 03/06/24 03:53 36.9 C 74 18 162/72 H 94 03/06/24 03:00 92 O2 Del Method O2 Del Method 03/06/24 10:31 Room Air 03/06/24 07:43 Room Air 03/06/24 07:40 Room Air 03/06/24 07:22 03/06/24 03:53 Room Air 03/06/24 03:00 Room Air
[2024-03-06] MEDS ORDERED: CALCIUM CARBONATE 500 MG CHEWABLE TAB PO PRN (12:34)
--- NOTE | 2024-03-06 14:03 | Hospitalist Progress Note ---
Date of Service March 06, 2024 Assessment & Plan (1) CKD (chronic kidney disease) stage 5, GFR less than 15 ml/min: (2) ESRD on hemodialysis: (3) High blood pressure: (4) Hypocalcemia: (5) Anemia: (6) Myelodysplastic syndrome: (7) Hyperkalemia: Plan 74-year-old female with past med history significant for hypomagnesia, obstructive sleep apnea on CPAP, hypertension, chronic diarrhea, CKD stage IV, myelodysplastic syndrome, anemia of chronic kidney disease, history of ne phrolithiasis, history of breast cancer, presents with nausea /vomiting for the last few days and not able to eat comes to ER and found to have JAIRON, hyperkalemia and metabolic acidosis. Patient currently denies any diarrhea. She states she is micturating okay. Denies any fevers. Denies any abdominal pain. No chest pain. Denies shortness of breath. No fevers. No cough. No headache. Vision is okay. No runny nose or sore throat. Current resting comfortably and hemodynamically stable. Alert and oriented x 3. She states is taking chemo pill daily seems for myelodysplastic syndrome. ESRD with metabolic abnormalities/hypocalcemia/hyperphosphatemia/hyperkalemia - Now on HD since this admission - presented with uremic symptoms and significant lab abnormalities - S/p emergent hemodialysis with improvement in symptoms and labs. - S/p permacath placed by vascular - Had multiple HD here last one 03/05. Next HD likely Thursday as OP. [employer] working on the paperwork for OP HD set up - Given IV Venofer and Epogen per nephrology. Hypocalcemia-improving. Now on PhosLo per nephrology. Also on calcium gluconate and tums. Recheck in a.m. Hypomagnesemia- repleted, recheck in am Hyperkalemia-resolved status post dialysis. Anion gap metabolic acidosis-due to CKD. resolved with bicarb drip and dialysis. Anemia- Hb dropped to 6.8 and s/p 1 U PRBC on 03/05, Hb now at 8.3. S/p multiple doses iv venofer and epocrit. Per nephro, given her MDS and ESRD, it will be difficult to raise her Hb. Nonocclusive thrombus identified in right internal jugular vein, likely chronic, 3 cm linear thrombus- incidental finding. Spoke with vascular surgery and Dr Patterson- no need for anticoagulation. Dysphagia-CT soft tissue neck and MRI reviewed. Seen by ortho spine- recommended OP follow up in 2 weeks. History of myelodysplastic syndrome- Discussed with Dr Patterson- continue revlimid Sleep apnea- On CPAP nightly Mild elevation troponin-in setting of CKD. Doubt ACS. History of breast cancer diagnosed in 1989 treated with chemotherapy and surgery Hypertension-on amlodipine, labetalol, lisinopril. Nephro on board. HLZ prn. DVT prophylaxis-subcu heparin Disposition- Awaiting OP HD set up prior to discharge home otherwise stable. Time spent-approximately 35 minutes Updated at bedside Admission and Anticipated Discharge Date Admission Date: March 02, 2024 Subjective Patient was seen and examined at bedside. She feels fine. No new issues. No nausea, vomiting, abdominal pain, chest pain or shortness of breath. Appetite good. Had bowel movement. Voiding without issues Review of Systems Review of Systems: All systems reviewed & are unremarkable except as noted in Subjective Physical Exam Physical Exam: General: Lying comfortably in bed, not in distress, on room air HEENT: EOMI, DARSHAN, MMM Chest: Left sided permacath. Clear breath sounds bilaterally, no wheezes or crackles CVS: Regular rate and rhythm, normal heart sounds, no murmur Abdomen: Soft, non tender, not distended, normal bowel sounds Neuro: Awake, alert, oriented, conversing well, non focal Extremities: No edema. RUE ecchymoses Tobar with clear urine Results & Data Results & Data Vital Signs (Past 12 Hours) Vital Signs Temp Pulse Pulse Resp BP Pulse Ox Pulse Ox 03/06/24 10:31 36.7 C 75 18 145/67 H 93 03/06/24 07:43 03/06/24 07:40 36.7 C 78 18 162/77 H 95 03/06/24 07:22 74 03/06/24 03:53 36.9 C 74 18 162/72 H 94 03/06/24 03:00 92 O2 Del Method O2 Del Method 03/06/24 10:31 Room Air 03/06/24 07:43 Room Air 03/06/24 07:40 Room Air 03/06/24 07:22 03/06/24 03:53 Room Air 03/06/24 03:00 Room Air Laboratory Results Short CBC 04/21/24 Range/Units 05:43 WBC 11.07 H (4.8-10.8) K/ul Hgb 8.3 L (12.0-16.0) g/dl Hct 27.1 L (37.0-47.0) % Plt Count 77 L (130-400) K/uL BMP 03/06/24 05:43 Sodium 135 L Potassium 3.5 Chloride 102 Carbon Dioxide 27 BUN 33 H D Creatinine 4.41 H D Glucose 117 H Calcium 6.9 L (3) High blood pressure Hypertension type: renovascular hypertension Qualified Code(s): I15.0 - Renovascular hypertension
[2024-03-06] MEDS: CALCIUM GLUCONATE 1,000 MG/60 ML BAG IV SCH (14:06)
[2024-03-06] MEDS: CALCIUM CARBONATE 500 MG CHEWABLE TAB PO SCH (14:51)
[2024-03-06] MEDS: ACETAMINOPHEN 325 MG TAB PO PRN (20:31)
[2024-03-06] MEDS: HEPARIN SOD 5,000 UNIT/0.5 ML VIAL SQ SCH (20:32)
[2024-03-07 05:23] LABS: Hematocrit (blood only) 25.3 % (37.0-47.0); Hemoglobin 7.7 g/dl (12.0-16.0); Mean Corpuscular Hemoglobin 24.8 pg (25.0-34.0); Mean Corpuscular Hgb Conc 30.4 g/dL (32.0-36.0); Mean Corpuscular Volume 81.6 fL (80.0-100.0); Nucleated RBC % (auto) 0.9 %; Platelet Count 84 K/uL (130-400); RDW Coefficient of Variation 22.1 % (11.5-14.5); RDW Standard Deviation 65.4 fL (36.4-46.3); White Blood Count 10.93 K/ul (4.8-10.8)
[2024-03-07 05:35] LABS: BUN Creatinine Ratio 8.8 (10-20); Calcium 7.5 mg/dl (8.6-10.3); Creatinine Clr Calc Pharmacy 7.5 ml/min; Est GFR (African American) 7.8 ml/min; Est GFR (Non-African American) 6.7 ml/min; Magnesium 1.5 mg/dl (1.7-2.4); Phosphorus 3.4 mg/dl (2.5-4.9); Potassium 3.4 mmol/L (3.5-5.1)
[2024-03-07] MEDS: POTASSIUM CHLORIDE CRTAB 20 MEQ TABCR PO ONE (08:21)
[2024-03-07] MEDS: MAGNESIUM SULFATE / D5W 1 GM/100 ML BAG IV ONE (08:21)
--- NOTE | 2024-03-07 11:27 | Hospitalist Progress Note ---
Date of Service March 07, 2024 Assessment & Plan (1) CKD (chronic kidney disease) stage 5, GFR less than 15 ml/min: (2) ESRD on hemodialysis: (3) High blood pressure: (4) Hypocalcemia: (5) Anemia: (6) Myelodysplastic syndrome: (7) Hyperkalemia: Plan 74-year-old female with past med history significant for hypomagnesia, obstructive sleep apnea on CPAP, hypertension, chronic diarrhea, CKD stage IV, myelodysplastic syndrome, anemia of chronic kidney disease, history of ne phrolithiasis, history of breast cancer, presents with nausea /vomiting for the last few days and not able to eat comes to ER and found to have JAIRON, hyperkalemia and metabolic acidosis. Patient currently denies any diarrhea. She states she is micturating okay. Denies any fevers. Denies any abdominal pain. No chest pain. Denies shortness of breath. No fevers. No cough. No headache. Vision is okay. No runny nose or sore throat. Current resting comfortably and hemodynamically stable. Alert and oriented x 3. She states is taking chemo pill daily seems for myelodysplastic syndrome. ESRD with metabolic abnormalities/hypocalcemia/hyperphosphatemia/hyperkalemia- Now on HD since this admission - presented with uremic symptoms and significant lab abnormalities - S/p emergent hemodialysis with improvement in symptoms and labs. - S/p permacath placed by vascular - Had multiple HD here last one 03/05. Next HD likely Thursday as OP. [employer] Director working on the paperwork for OP HD set up - Given IV Venofer and Epogen per nephrology. Hypocalcemia-improving. Now on PhosLo and Tums per nephrology. Status post multiple IV calcium gluconate. Hypomagnesemia- repleted, recheck in am Hypokalemia-repleted. Recheck in a.m. Anion gap metabolic acidosis-due to CKD. resolved with bicarb drip and dialysis. Anemia- Hb dropped to 6.8 and s/p 1 U PRBC on 03/05, Hb now at 8.3. S/p multiple doses iv venofer and epocrit. Per nephro, given her MDS and ESRD, it will be difficult to raise her Hb. Nonocclusive thrombus identified in right internal jugular vein, likely chronic, 3 cm linear thrombus- incidental finding. Spoke with vascular surgery and Dr Patterson- no need for anticoagulation. Dysphagia-CT soft tissue neck and MRI reviewed. Seen by ortho spine- recommended OP follow up in 2 weeks. History of myelodysplastic syndrome- Discussed with Dr Patterson- continue revlimid Sleep apnea- On CPAP nightly Mild elevation troponin-in setting of CKD. Doubt ACS. History of breast cancer diagnosed in 1989 treated with chemotherapy and surgery Hypertension-on amlodipine, labetalol, lisinopril. Nephro on board. HLZ prn. DVT prophylaxis-subcu heparin Disposition- Awaiting OP HD set up prior to discharge home otherwise stable. Time spent-approximately 35 minutes Admission and Anticipated Discharge Date Admission Date: March 02, 2024 Subjective Patient was seen and examined at bedside. She feels fine. Appetite is improved. Regular bowel movements. Voiding without issues. Ambulating independently. No fever, chills, chest pain or shortness of breath nausea or vomiting Review of Systems 2 Review of Systems: All systems reviewed & are unremarkable except as noted in Subjective Physical Exam Physical Exam: General: Lying comfortably in bed, not in distress, on room air HEENT: EOMI, DARSHAN, MMM Chest: Left sided permacath. Clear breath sounds bilaterally, no wheezes or crackles CVS: Regular rate and rhythm, normal heart sounds, no murmur Abdomen: Soft, non tender, not distended, normal bowel sounds Neuro: Awake, alert, oriented, conversing well, non focal Extremities: No edema. RUE ecchymoses Results & Data Results & Data Vital Signs (Past 12 Hours) Vital Signs Temp Pulse Pulse Resp BP Pulse Ox Pulse Ox 03/07/24 10:50 36.6 C 73 18 150/71 H 95 03/07/24 07:08 36.7 C 71 18 172/76 H 95 03/07/24 03:11 36.7 C 68 16 153/76 H 94 03/07/24 03:00 94 O2 Del Method O2 Del Method 03/07/24 10:50 Room Air 03/07/24 07:08 Room Air 03/07/24 03:11 Room Air 03/07/24 03:00 Room Air Laboratory Results Short CBC 03/07/24 Range/Units 04:30 WBC 10.93 H (4.8-10.8) K/ul Hgb 7.7 L (12.0-16.0) g/dl Hct 25.3 L (37.0-47.0) % Plt Count 84 L (130-400) K/uL BMP 03/07/24 04:30 Sodium 132 L Potassium 3.4 L Chloride 97 L Carbon Dioxide 25 BUN 51 H Creatinine 5.82 H* D Glucose 93 Calcium 7.5 L (3) High blood pressure Hypertension type: renovascular hypertension Qualified Code(s): I15.0 - Renovascular hypertension
--- NOTE | 2024-03-07 14:04 | Discharge Summary ---
Date of Service March 07, 2024 Admission HPI Per Admitting Provider 74-year-old female with past med history significant for hypomagnesia, obstructive sleep apnea on CPAP, hypertension, chronic diarrhea, CKD stage IV, myelodysplastic syndrome, anemia of chronic kidney disease, history of nephrolithiasis, history of breast cancer, presents with nausea /vomiting for the last few days and not able to eat comes to ER and found to have JAIRON, hyperkalemia and metabolic acidosis. Patient currently denies any diarrhea. She states she is micturating okay. Denies any fevers. Denies any abdominal pain. No chest pain. Denies shortness of breath. No fevers. No cough. No headache. Vision is okay. No runny nose or sore throat. Current resting comfortably and hemodynamically stable. Alert and oriented x 3. She states is taking chemo pill daily for leukemia but per epic seems for myelodysplastic syndrome. Past medical history. As mentioned above Past surgical history. Left cystoscopy ureteral lithotripsy. Laparoscopic cholecystectomy. Left simple mastectomy. Right open repair of rotator cuff. Social history. No smoking. No alcohol use. No drug use. Family history no family history on file Admission Exam Per Admitting Provider General- Not in distress Head- atraumatic Eyes- PERRL. ENT- oropharynx clear Neck- supple, no JVD. Lungs- clear to auscultation no wheezing or crackles. Heart- regular rhythm; no murmur, no gallop. Abdomen- normal bowel sounds, soft, nontender, no distension. Extremities- no pretibial edema, no erythema seen Neuro- alert, oriented x 3; PERRL, no facial palsy; no dysarthria; motor 5/5 bilaterally; Principal Diagnosis ESRD with uremic symptoms, Hyperkalemia, Hypocalcemia, Metabolic acidosis, Anemia, MDS Discharge Exam General: Lying comfortably in bed, not in distress, on room air HEENT: EOMI, DARSHAN, MMM Chest: Left sided permacath. Clear breath sounds bilaterally, no wheezes or crackles CVS: Regular rate and rhythm, normal heart sounds, no murmur Abdomen: Soft, non tender, not distended, normal bowel sounds Neuro: Awake, alert, oriented, conversing well, non focal Extremities: No edema. RUE ecchymoses Discharge Data Allergies Allergy/AdvReac Type Severity Reaction Status Date / Time ampicillin Allergy Intermediate Rash Verified 03/01/24 20:08 codeine Allergy Intermediate Rash Verified 03/01/24 20:08 Iodinated Contrast Media Allergy Intermediate ITCHY RASH Verified 03/01/24 20:08 Penicillins Allergy Intermediate SWELLING Verified 03/01/24 20:08 red dye Allergy Intermediate Hives Verified 03/01/24 20:08 Consultations 03/02/24 01:05 ED Decision to Admit Stat 03/02/24 03:40 Consult Cream Gatherer Routine 03/02/24 07:12 Consult Vascular Surgery Routine 03/02/24 09:01 Consult Nephrology Routine 03/04/24 07:20 Consult Orthopedic Spine Surgery Routine Procedures Performed Operation Date: 03/04/24 08:20 Actual Procedures p Insertion Perm Catheter, Left Internal Jugular Approach, Ultrasound Localization of Left Internal Jugular Vein, Fluoroscopy for Positioning, M oderate Sedation 0842 - 0922(Left) - Leandro Alexander MD Ordered Studies 03/01/24 23:23 CT Abd and Pelvis [CT abd pelvis wo con] Stat 03/02/24 02:15 CT neck soft tissues [CT soft tissue neck wo con] Stat 03/02/24 12:03 US venous doppler UE RT Stat 03/03/24 16:38 MRI Cervical [MR cervical spine wo con] Routine 03/04/24 07:05 EV cvc insrt tunnel wo prt/solutions developer Routine US EV guide vascular access Routine Laboratory Results WBC 10.93 K/ul (4.8-10.8) H 03/07/24 04:30 RBC 3.10 M/uL (4.20-5.40) L 03/07/24 04:30 Hgb 7.7 g/dl (12.0-16.0) L 03/07/24 04:30 Hct 25.3 % (37.0-47.0) L 03/07/24 04:30 MCV 81.6 fL (80.0-100.0) 03/07/24 04:30 MCH 24.8 pg (25.0-34.0) L 03/07/24 04:30 MCHC 30.4 g/dL (32.0-36.0) L 03/07/24 04:30 RDW Std Deviation 65.4 fL (36.4-46.3) H 03/07/24 04:30 RDW Coeff of Tosha 22.1 % (11.5-14.5) H 03/07/24 04:30 Plt Count 84 K/uL (130-400) L 03/07/24 04:30 MPV Cancelled 03/01/24 21:27 Immature Gran % (Auto) 5.6 % 03/02/24 03:55 Neut % (Auto) 65.9 % 03/02/24 03:55 Lymph % (Auto) 12.7 % 03/02/24 03:55 Crawford % (Auto) 14.5 % 03/02/24 03:55 Eos % (Auto) 0.5 % 03/02/24 03:55 Baso % (Auto) 0.8 % 03/02/24 03:55 Neut # (Auto) 4.09 K/uL (1.40-6.50) 03/02/24 03:55 Lymph # (Auto) 0.79 K/uL (1.20-3.40) L 03/02/24 03:55 Crawford # (Auto) 0.90 K/uL (0.11-0.59) H 03/02/24 03:55 Eos # (Auto) 0.03 K/uL (0.00-0.50) 03/02/24 03:55 Baso # (Auto) 0.05 K/uL (0.00-0.20) 03/02/24 03:55 Immature Gran # (Auto) 0.35 K/uL (0.01-0.20) H 03/02/24 03:55 Absolute Nucleated RBC 0.10 K/uL (0.00-0.12) 03/07/24 04:30 Nucleated RBC % (auto) 0.9 % 03/07/24 04:30 Neutrophils % (Manual) Cancelled 03/01/24 21:27 Band Neutrophils % Cancelled 03/01/24 21:27 Lymphocytes % (Manual) Cancelled 03/01/24 21:27 Prolymphocyte % Cancelled 03/01/24 21:27 Reactive Lymphs % (Man) Cancelled 03/01/24 21:27 Monocytes % (Manual) Cancelled 03/01/24 21:27 Eosinophils % (Manual) Cancelled 03/01/24 21:27 Basophils % (Manual) Cancelled 03/01/24 21:27 Metamyelocytes % (Man) Cancelled 03/01/24 21:27 Myelocytes % (Man) Cancelled 03/01/24 21:27 Promyelocytes % (Man) Cancelled 03/01/24 21:27 Blast Cells % (Manual) Cancelled 03/01/24 21:27 Plasma Cell % (Manual) Cancelled 03/01/24 21:27 Other Cells % Cancelled 03/01/24 21:27 Nucleated RBC % Cancelled 03/01/24 21:27 Neutrophils # (Manual) Cancelled 03/01/24 21:27 Band Neutrophils # Cancelled 03/01/24 21:27 Total Absolute Neuts Cancelled 03/01/24 21:27 Lymphocytes # (Manual) Cancelled 03/01/24 21:27 Prolymphocyte # Cancelled 03/01/24 21:27 Reactive Lymphs # Cancelled 03/01/24 21:27 Total Abs Lymphocytes Cancelled 03/01/24 21:27 Monocytes # (Manual) Cancelled 03/01/24 21:27 Eosinophils # (Manual) Cancelled 03/01/24 21:27 Basophils # (Manual) Cancelled 03/01/24 21:27 Metamyelocytes # (Man) Cancelled 03/01/24 21:27 Myelocytes # (Manual) Cancelled 03/01/24 21:27 Promyelocytes # (Man) Cancelled 03/01/24 21:27 Blast Cells # (Man) Cancelled 03/01/24 21:27 Plasma Cell # (Manual) Cancelled 03/01/24 21:27 Other Cells # Cancelled 03/01/24 21:27 Nucleated RBCs # (Man) Cancelled 03/01/24 21:27 Hypersegmented Neuts Cancelled 03/01/24 21:27 Hyposegmented Neuts Cancelled 03/01/24 21:27 Hypogranular Neuts Cancelled 03/01/24 21:27 Large Granular Lymphs Cancelled 03/01/24 21:27 # Lrg Granular Lymphs Cancelled 03/01/24 21:27 Hairy Cells Cancelled 03/01/24 21:27 Smudge Cells Cancelled 03/01/24 21:27 Toxic Granulation Cancelled 03/01/24 21:27 Toxic Vacuolation Cancelled 03/01/24 21:27 Dohle Bodies Cancelled 03/01/24 21:27 Tito Rods Cancelled 03/01/24 21:27 Platelet Estimate Decreased (Normal) L 03/04/24 04:54 Hypogranular Platelets Cancelled 03/01/24 21:27 Giant Platelets Cancelled 03/01/24 21:27 Platelet Satelliting Cancelled 03/01/24 21:27 RBC Morphology Cancelled 03/01/24 21:27 Polychromasia 1+ 03/02/24 03:55 Hypochromasia Cancelled 03/01/24 21:27 Poikilocytosis Cancelled 03/01/24 21:27 Basophilic Stippling Cancelled 03/01/24 21:27 Anisocytosis Present 03/02/24 03:55 Microcytosis Cancelled 03/01/24 21:27 Macrocytosis Cancelled 03/01/24 21:27 Spherocytes Cancelled 03/01/24 21:27 Pappenheimer Bodies Cancelled 03/01/24 21:27 Sickle Cells Cancelled 03/01/24 21:27 Target Cells Cancelled 03/01/24 21:27 Tear Drop Cells 1+ 03/02/24 03:55 Ovalocytes 1+ 03/01/24 21:27 Ovalocytes Cancelled 03/01/24 21:27 Stomatocytes Cancelled 03/01/24 21:27 [place] Bodies Cancelled 03/01/24 21:27 Echinocytes 1+ 03/02/24 03:55 Acanthocytes (Spur) 2+ 03/01/24 21:27 Acanthocytes (Spur) Cancelled 03/01/24 21:27 Rouleaux Cancelled 03/01/24 21:27 RBC Agglutinates Cancelled 03/01/24 21:27 Schistocytes Cancelled 03/01/24 21:27 Sezary Cell Cancelled 03/01/24 21:27 VBG pH 7.13 (7.36-7.41) L 03/02/24 05:33 VBG pCO2 33 mmHg (38-50) L 03/02/24 05:33 VBG pO2 55 mmHg 03/02/24 05:33 VBG HCO3 11 mmol/L 03/02/24 05:33 VBG O2 Saturation 77.4 % 03/02/24 05:33 VBG Base Excess -17.1 mEq/L 03/02/24 05:33 Sodium 132 mmol/L (136-145) L 03/07/24 04:30 Potassium 3.4 mmol/L (3.5-5.1) L 03/07/24 04:30 Chloride 97 mmol/L (98-107) L 03/07/24 04:30 Carbon Dioxide 25 mmol/L (21-32) 03/07/24 04:30 Anion Gap 10 (3-11) 03/07/24 04:30 BUN 51 mg/dl (6-23) H 03/07/24 04:30 Creatinine 5.82 mg/dl (0.6-1.2) H* D 03/07/24 04:30 Est Cr Clr Drug Dosing 7.5 ml/min 03/07/24 04:30 Est GFR ( Amer) 7.8 ml/min 03/07/24 04:30 Est GFR (Non-Af Amer) 6.7 ml/min 03/07/24 04:30 BUN/Creatinine Ratio 8.8 (10-20) L 03/07/24 04:30 Glucose 93 mg/dl (70-99(Fasting)) 03/07/24 04:30 POC Glucose 159 mg/dl (70-99) H 03/07/24 07:48 Estimat Average Glucose 123 mg/dl 03/05/24 06:34 Hemoglobin A1c 5.9 % (4.5-5.6) H 03/05/24 06:34 Lactate 0.6 mmol/L (0.4-2.0) 03/01/24 21:27 Calcium 7.5 mg/dl (8.6-10.3) L 03/07/24 04:30 Ionized Calcium 0.88 mmol/L (1.12-1.32) L 03/06/24 05:43 Phosphorus 3.4 mg/dl (2.5-4.9) D 03/07/24 04:30 Magnesium 1.5 mg/dl (1.7-2.4) L 03/07/24 04:30 Total Bilirubin 0.3 mg/dl (0.2-1.0) 03/01/24 23:38 AST 8 U/L (13-39) L 03/01/24 23:38 ALT 8 U/L (7-52) 03/01/24 23:38 Alkaline Phosphatase 57 U/L (34-104) 03/01/24 23:38 Total Creatine Kinase 108 U/L (26-192) 03/01/24 21:27 Troponin I High Sens 237.4 pg/ml (0-14) H* D 03/02/24 22:30 Total Protein 6.1 gm/dl (6.0-8.3) 03/01/24 23:38 Albumin 3.1 gm/dl (3.4-5.0) L 03/02/24 15:42 Globulin 2.5 gm/dl (2.5-4.0) 03/01/24 23:38 Albumin/Globulin Ratio 1.4 (0.9-2) 03/01/24 23:38 Lipase 490 U/L (11-82) H 03/01/24 21:27 25-OH Vitamin D Total 11.8 ng/ml (30-100) L 03/02/24 03:54 Urine Color Yellow 03/02/24 04:12 Urine Appearance Cloudy (Clear) A 03/02/24 04:12 Urine pH 5.0 (4.5-7.5) 03/02/24 04:12 Ur Specific Blossom 1.011 (1.000-1.030) 03/02/24 04:12 Urine Protein 3+ (Negative) H 03/02/24 04:12 Urine Glucose (UA) Trace (Negative) H 03/02/24 04:12 Urine Ketones Negative (Negative) 03/02/24 04:12 Urine Blood Trace (Negative) H 03/02/24 04:12 Urine Nitrite Negative (Negative) 03/02/24 04:12 Urine Bilirubin Negative (Negative) 03/02/24 04:12 Urine Urobilinogen Negative (Negative) 03/02/24 04:12 Ur Leukocyte Esterase Negative (Negative) 03/02/24 04:12 Urine WBC (Auto) 6-10 /hpf (0-5) H 03/02/24 04:12 Urine RBC (Auto) 0-2 /hpf (0-2) 03/02/24 04:12 U Hyaline Cast (Auto) 0-2 /lpf (0-2) 03/02/24 04:12 U Epithel Cells (Auto) 0-2 /hpf (0-2) 03/02/24 04:12 Urine Bacteria (Auto) None Seen (None Seen) 03/02/24 04:12 Ur Random Creatinine 57.9 mg/dl 03/02/24 04:12 Ur Random Sodium 70 mmol/L 03/02/24 04:12 Nasal Screen MRSA (PCR) Negative (Negative) 03/02/24 Unknown Salicylates < 3.0 mg/dl (3.0-30) L 03/02/24 05:22 Urine Opiates Screen Neg (Neg) 03/02/24 04:12 Ur Methadone, Qual Neg (Neg) 03/02/24 04:12 Urine Barbiturates Neg (Neg) 03/02/24 04:12 Ur Phencyclidine (PCP) Neg (Neg) 03/02/24 04:12 U Amphetamin/Meth Scrn Neg (Neg) 03/02/24 04:12 MDMA (Ecstasy) Screen Neg (Neg) 03/02/24 04:12 U Benzodiazepines Scrn Neg (Neg) 03/02/24 04:12 Ur Cocaine Metabolite Neg (Neg) 03/02/24 04:12 U Marijuana (THC) Screen Neg (Neg) 03/02/24 04:12 Hep Bs Antigen NON-REACTIVE (NON-REACTIVE) 03/02/24 05:33 Hep Bs Ag Confirmation TNP 03/02/24 05:33 Hep Bs Antibody, Quant <5 mIU/mL (> OR = 10) L 03/02/24 05:33 Hep B Core IgM Ab NON-REACTIVE (NON-REACTIVE) 03/02/24 15:45 Blood Parasites ID Cancelled 03/01/24 21:27 Blood Type O Positive 03/04/24 17:08 Antibody Screen NEGATIVE 03/04/24 17:08 Crossmatch See Detail 03/04/24 17:08 Impressions Abdomen/Pelvis CT 03/01/24 23:23 Exam(s): CT ABDOMEN + PELVIS Without Contrast EXAM: CT Abdomen and Pelvis Without Intravenous Contrast CLINICAL HISTORY: Reason for exam: intractable N/V, ARF. TECHNIQUE: Axial computed tomography images of the abdomen and pelvis without intravenous contrast. CTDI is 10.65 mGy and DLP is 482.37 mGy-cm. Automated exposure control was utilized for the study. A dose lowering technique was utilized adhering to the principles of ALARA. COMPARISON: No relevant prior studies available. FINDINGS: Lung bases: Unremarkable. No mass. No consolidation. ABDOMEN: Liver: Unremarkable. Gallbladder and bile ducts: Cholecystectomy. No ductal dilation. Pancreas: Unremarkable. No ductal dilation. Spleen: Unremarkable. No splenomegaly. Adrenals: Unremarkable. No mass. Kidneys and ureters: Unremarkable. No hydronephrosis or nephrolithiasis. Stomach and bowel: Diverticulosis, without acute diverticulitis. No small bowel obstruction. No free intraperitoneal air. PELVIS: Appendix: Normal appendix. Bladder: Unremarkable. No stones. Reproductive: RIGHT ovarian cyst measures 2.4 x 2.0 cm. ABDOMEN and PELVIS: Intraperitoneal space: Unremarkable. No free air. No significant fluid collection. Bones/joints: Degenerative changes of the spine. No acute fracture. No dislocation. Soft tissues: Unremarkable. Vasculature: Atherosclerotic changes of the aorta. No abdominal aortic aneurysm. Lymph nodes: Unremarkable. No enlarged lymph nodes. IMPRESSION: 1. No hydronephrosis or nephrolithiasis. 2. Normal appendix. 3. Cholecystectomy. 4. RIGHT ovarian cyst measures 2.4 x 2.0 cm. 5. Diverticulosis, without acute diverticulitis. No small bowel obstruction. No free intraperitoneal air. Electronically signed by: Jordin Perez MD 03/02/24 00:29 AM Soft Tissue Neck CT 03/02/24 02:15 Exam(s): CT NECK Without Contrast EXAM: CT Neck Without Intravenous Contrast CLINICAL HISTORY: Reason for exam: nausea and gagging. any mass.. TECHNIQUE: Axial computed tomography images of the neck without intravenous contrast. CTDI is 12.12 mGy and DLP is 361.6 mGy-cm. Automated exposure control was utilized for the study. A dose lowering technique was utilized adhering to the principles of ALARA. COMPARISON: No relevant prior studies available. FINDINGS: Oropharynx: Unremarkable. No significant tonsillar enlargement. Hypopharynx: Unremarkable. Larynx: Unremarkable. Normal epiglottis. Trachea: Unremarkable. Retropharyngeal space: Unremarkable. Submandibular/parotid glands: Unremarkable. Glands are normal in size. Thyroid: Small to tiny bilateral thyroid nodules. No enlarged or calcified nodules. Bones/joints: No acute fracture. There is a critical spinal canal stenosis at C4. Soft tissues: Unremarkable. Vasculature: No acute findings. Lymph nodes: Unremarkable. No lymphadenopathy. Lung apices: Unremarkable as visualized. IMPRESSION: No evidence of acute cervical soft tissue pathology. Critical spinal canal stenosis at C4 with impingement of the ventral cord, which can cause swallowing abnormalities. Recommend MRI of the cervical spine to evaluate for myelopathy. Electronically signed by: Sammie Adams MD 03/02/24 05:04 AM Chest X-Ray 03/02/24 09:19 XR chest 1V portable HISTORY: line placement COMPARISON: None. FINDINGS: No pneumothorax. No pleural effusions. The cardiac silhouette is mildly enlarged. No evidence for pulmonary edema. The left jugular central venous catheter which terminates at the superior cavoatrial junction. Postoperative changes within the right shoulder. Question right lung densities are likely due to the overlapping ribs. Otherwise, lungs are clear. IMPRESSION: A left jugular central venous catheter terminates at the superior cavoatrial junction. No pneumothorax. ACT 112: Negative or not required by law. Electronically signed by: Milton Gardner M.D. 03/02/2024 9:53 AM Venous Doppler Study 03/02/24 12:03 RIGHT INTERNAL JUGULAR VEIN VENOUS DOPPLER HISTORY: R INTERNAL JUGULAR VEIN occlusion COMPARISON STUDY: None. FINDINGS: Nonocclusive thrombus identified within the right internal jugular vein. This measures approximately 3 cm in length. This is age indeterminate but has a linear appearance and may represent chronic rather than acute thrombus. IMPRESSION: Nonocclusive thrombus within the right internal jugular vein as described above. ACT 112: Negative or not required by law. Electronically signed by: Milton Gardner M.D. 03/02/2024 12:53 PM Cervical Spine MRI 03/03/24 16:38 MRI OF THE CERVICAL SPINE WITHOUT IV CONTRAST CLINICAL HISTORY: Dysphagia. COMPARISON STUDY: CT of the neck dated 03/02/2024. TECHNIQUE: MRI of the cervical spine is performed utilizing various T1 and T2- weighted sequences in the axial and sagittal planes. IV contrast was not administered for this examination. FINDINGS: Cervical spine: Vertebral body height and alignment is maintained throughout the cervical spine. There is straightening of the cervical lordosis. The atlantodental articulation is maintained noting productive degenerative change. The spinous processes appear intact. No destructive bony process is seen. Intervertebral discs: Disc desiccation and mild loss of height is seen throughout the cervical spine. Spinal cord: The cervical cord is normal in morphology and signal intensity. C2-C3: There is a central posterior disc protrusion which minimally effaces the ventral subarachnoid space. Mild facet arthropathy is of no consequence. The neural foramina are patent. C3-C4: A small central posterior disc protrusion which minimally effaces the ventral subarachnoid space. Facet arthropathy is of no consequence. The neural foramina are patent. C4: A subligamentous disc extrusion, likely from the C4-C5 level effaces the ventral cord at this level. This is best seen on sagittal image #9, and measures up to 1.7 cm in craniocaudal length and 0.5 cm in AP diameter. The minimum AP canal diameter measures up to 8 mm. C4-C5: A central posterior disc protrusion minimally effaces the ventral cord. As noted above, there is likely a subligamentous superior disc extrusion at this level. Facet arthropathy is of no consequence. The neural foramina are patent. C5-C6: A posterior disc osteophyte complex abuts the ventral cord. Facet arthropathy is of no consequence. The neural foramina are patent. C6-C7: A posterior disc osteophyte complex eccentric to the left abuts the ventral cord. Facet arthropathy is of no consequence. The neural foramina are patent. C7-T1: Unremarkable. Soft tissues: The prevertebral and paraspinous soft tissues are normal as imaged. Brain parenchyma: The visualized brain parenchyma at the skull base is normal as visualized noting age-related involutional change. IMPRESSION: 1. No acute bony abnormality is seen involving the cervical spine. 2. There is a large subligamentous disc extrusion posterior to C4 (likely from the C4-C5 level) which effaces the ventral cord. 3. The cervical cord is normal in morphology and signal intensity. 4. Milder spondylotic change at additional levels as above. See discussion for detailed level by level analysis. Dictated: 03/03/2024 6:51 PM Transcribed: 03/03/2024 7:14 PM Donis [id number] [email or web address] [id number] Electronically signed by: Velasquez Flores M.D. 03/03/2024 7:15 PM Hospital Course (1) CKD (chronic kidney disease) stage 5, GFR less than 15 ml/min: (2) ESRD on hemodialysis: (3) High blood pressure: (4) Hypocalcemia: (5) Anemia: (6) Myelodysplastic syndrome: (7) Hyperkalemia: Plan 74-year-old female with past med history significant for hypomagnesia, obstructive sleep apnea on CPAP, hypertension, chronic diarrhea, CKD stage IV, myelodysplastic syndrome, anemia of chronic kidney disease, history of nephrolithiasis, history of breast cancer, presents with nausea /vomiting for the last few days and not able to eat comes to ER and found to have JAIRON, hyperkalemia and metabolic acidosis. With her uremic symptoms, she had progressed from her CKD 5 to ESRD requiring HD. She underwent emergent HD with improvement in her labs and symptoms. Permacath placed and had HD from that 03/05. OP HD already set up and to resume from tomorrow. Required multiple iv iron and iv procrit for anemia of CKD, and also required 1 U of PRBC. She is comfortable and stable for discharge home. I did review the discharge medications with nephrology and they will fine tune her medications including the supplements as OP. I did ask patient to take her revlimid after HD. ESRD with metabolic abnormalities/hypocalcemia/hyperphosphatemia/hyperkalemia- Now on HD since this admission - presented with uremic symptoms and significant lab abnormalities - S/p emergent hemodialysis with improvement in symptoms and labs. - S/p permacath placed by vascular - Had multiple HD here last one 03/05. Next HD will be tomorrow as OP as [facility] with Dr Pena. - Given IV Venofer and Epogen per nephrology. Hypocalcemia-improving. Now on PhosLo and Tums per nephrology. Status post multiple IV calcium gluconate. Hypomagnesemia- repleted. continue supplementation Hypokalemia-repleted. Anion gap metabolic acidosis-due to CKD. resolved with bicarb drip and dialys is. Anemia- Hb dropped to 6.8 and s/p 1 U PRBC on 03/05, Hb now at 7.7. S/p multiple doses iv venofer and epocrit. Per nephro, given her MDS and ESRD, it will be difficult to raise her Hb. Nonocclusive thrombus identified in right internal jugular vein, likely chronic, 3 cm linear thrombus- incidental finding. Spoke with vascular surgery and Dr Patterson- no need for anticoagulation. Dysphagia-CT soft tissue neck and MRI reviewed. Seen by ortho spine- recommended OP follow up in 2 weeks. History of myelodysplastic syndrome- Discussed with Dr Patterson- continue revlimid Sleep apnea- On CPAP nightly Mild elevation troponin-in setting of CKD. Doubt ACS. History of breast cancer diagnosed in 1989 treated with chemotherapy and surgery Hypertension-on amlodipine, labetalol, lisinopril. Further management per nephro. Total Time Total Time Spent Total Time Spent (In Minutes): 40 Discharge Plan Discharge Items Patient Disposition: Home - Self-Care Reason For Visit: JAIRON, HYPERLAEMIA, METABOLIC ACIDOSIS Discharge Diagnosis: ESRD with uremic symptoms, Hyperkalemia, Hypocalcemia, Metabolic acidosis, Anemia, MDS Activity: Resume your previous activity Non-emergency contact: Primary Care Provider, Bacteriology Research Assistant and Oncologist Call non-emergency contact if: you have any medication questions and your symptoms worsen Follow-up/Referrals: Chio Simental MD [Primary Care Provider] - (Date & Time 03/11/2024 9:00 AM Provider Chio Simental MD Department General Internal Medicine [facility] ) Diet: Dialysis Renal Addtl Attending Provider Instructions: Please take the medications as prescribed Outpatient hemodialysis scheduled for tomorrow Follow up with ortho spine doctor, nephrology, oncology and family doctor Pending Studies at Discharge: No Stand-Alone Forms: My Visual IQ, Smoking Cessation Medications and DC Order Prescriptions: New lisinopril 20 mg Tablet 20 mg PO BID 30 Days Qty: 60 0RF calcium acetate(phosphat bind) 667 mg Capsule 1,334 mg PO TIDM 30 Days Qty: 60 0RF cholecalciferol (vitamin D3) 25 mcg (1,000 unit) Capsule 50 mcg PO DAILY Qty: 30 0RF calcitriol 0.25 mcg Capsule 0.5 mcg PO QAM Qty: 30 0RF Mag 64 64 mg Tablet,Delayed Release (Dr/Ec) 64 mg PO BID Qty: 20 0RF calcium carbonate [Tums] 200 mg calcium (500 mg) Tablet,Chewable 1,500 mg PO BID Qty: 60 0RF Continued labetalol 100 mg Tablet 100 mg PO BID fluticasone propionate 50 mcg/actuation spray,suspension 2 spray INTRANASAL DAILY loratadine [Claritin] 10 mg Tablet 10 mg PO HS amlodipine 10 mg tablet 10 mg PO QAM Discontinued cholecalciferol (vitamin D3) [Vitamin D3] 25 mcg (1,000 unit) Capsule 25 mcg PO DAILY Discharge Orders: Discharge Order (Routine); Ordered 03/07/24 Ordered By: Arvind Strange Admission Data Admit Date/Time: 03/02/24 02:15 Attending Provider: Arvind Strange Admit Provider: Cristo Aguirre Primary Care Provider: Chio Simental Other Providers: Onur Padron; Cristo Aguirre; Leandro Alexander; Onur Cai
--- NOTE | 2024-03-07 15:06 | Nephrology Progress Note ---
Date of Service March 07, 2024 Assessment & Plan (1) ESRD on hemodialysis: Plan: to start at [facility] tomorrow TRSat via TDC -continue phoslo, calcium supplements, rocaltrol at d/c -will let them start renal vitamin at OP unit -renal / dialysis diet teaching at OP unit -continue magnesium bid for now > may soon be able to stop -will run with no heparin at HD for now as OP d/t thrombocytopenia > have asked our acute dialysis nurses to update OP unit No need for nephro hospital d/c appt b/c she will be seen by our team at dialysis >>DO recommend keeping 03/09/[address] Patterson, hematology Care coordinated with Dr Strange regarding d/c medications, follow up specialty care, anemia plan of care and we are in agreement. (2) High blood pressure: Plan: d/c on current doses of amlodipine, lisinopril, labetalol; needs may change as volume status optimized (3) Myelodysplastic syndrome: Plan: -continue f/u w/ hematology -we will give venofer and erythropoeitin stim agent at dialysis but may need to coordinate with heme -if /when she resumes revlimid will need to take it AFTER HD on dialysis days (4) Anemia in ESRD (end-stage renal disease): Plan: -aggressive SUDHA and venofer at HD Plan Case complexity high. Admission and Anticipated Discharge Date Admission Date: March 02, 2024 Subjective seen on afternoon rounds. denies exertional dyspnea. no edema. no orthopnea. no n/v. voided x 2 today and feels it's large amount. wants to have some dietary teaching > advised her to get it at OP dialysis unit for best/ongoing care. Review of Systems 2 Review of Systems: All systems reviewed & are unremarkable except as noted in Subjective Physical Exam 2 Constitutional: well developed, well nourished, + frail appearing and cooperative (on RA, maneuvers readily for exam); no acute distress Eyes: EOM intact bilaterally ENMT: Ears: no external ear abnormality Nose: no external nose abnormality Mouth: + dry oral mucous membranes Neck: no nuchal rigidity Respiratory: normal respiratory effort Auscultation: + diminished lung sounds and + crackles (bibasilar 1/3 up) Cardiovascular: RRR, no murmur, no edema Gastrointestinal (Abdomen): Inspection/Auscultation: normal bowel sounds P ercussion/Palpation: abdomen soft; abdomen nontender Musculoskeletal: Extremities: strength 5/5 throughout Skin: no rashes, warm and dry Neurologic: kitchen, fluent speech, no tremor Results & Data Vital Signs (Past 12 Hours) Vital Signs Temp Pulse Pulse Resp BP Pulse Ox Pulse Ox 03/07/24 10:50 36.6 C 73 18 150/71 H 95 03/07/24 07:08 36.7 C 71 18 172/76 H 95 03/07/24 03:11 36.7 C 68 16 153/76 H 94 03/07/24 03:00 94 O2 Del Method O2 Del Method 03/07/24 10:50 Room Air 03/07/24 07:08 Room Air 03/07/24 03:11 Room Air 03/07/24 03:00 Room Air Laboratory Results 03/07/24 04:30 03/07/24 04:30 (2) High blood pressure Hypertension type: renovascular hypertension Qualified Code(s): I15.0 - Renovascular hypertension
[2024-03-08 05:18] LABS: BUN Creatinine Ratio 9.6 (10-20); Creatinine Clr Calc Pharmacy 6.5 ml/min; Est GFR (African American) 6.6 ml/min; Est GFR (Non-African American) 5.7 ml/min; Magnesium 1.6 mg/dl (1.7-2.4); Potassium 3.6 mmol/L (3.5-5.1)
[2024-03-08 05:40] LABS: Hematocrit (blood only) 25.7 % (37.0-47.0); Hemoglobin 7.8 g/dl (12.0-16.0); Mean Corpuscular Hemoglobin 24.8 pg (25.0-34.0); Mean Corpuscular Hgb Conc 30.4 g/dL (32.0-36.0); Mean Corpuscular Volume 81.6 fL (80.0-100.0); Nucleated RBC # (auto) 0.07 K/uL (0.00-0.12); Nucleated RBC % (auto) 0.5 %; Platelet Count 88 K/uL (130-400); RDW Coefficient of Variation 22.5 % (11.5-14.5); RDW Standard Deviation 66.3 fL (36.4-46.3); Red Blood Count 3.15 M/uL (4.20-5.40); White Blood Count 13.21 K/ul (4.8-10.8)
[2024-03-08] MEDS ORDERED: SODIUM CHLORIDE 0.9% 1,000 ML IV PRN (07:57)
[2024-03-08] MEDS: HEPARIN SOD (PORCINE) 1000 UNIT/ML IV ONE (09:54)
--- NOTE | 2024-03-08 12:19 | Dialysis Progress Note ---
Date of Service March 08, 2024 Assessment & Plan (1) ESRD on hemodialysis: Plan: to start at [facility] 03/10 TRSat via TDC -continue phoslo, calcium supplements, rocaltrol at d/c -will let them start renal vitamin at OP unit -renal / dialysis diet teaching at OP unit -continue magnesium bid for now > may soon be able to stop -will run with 1000 heparin bolus and no maintenance today; asked for OP HD for now as OP d/t thrombocytopenia > have asked our acute dialysis nurses to update OP unit No need for neph hospital d/c appt b/c she will be seen by our team at dialysis >>DO recommend keeping 03/09/[address] Patterson, hematology Care coordinated with Dr Strange regarding d/c medications, follow up specialty care, anemia plan of care and we are in agreement. (2) High blood pressure: Plan: d/c on current doses of amlodipine, lisinopril, labetalol; needs may change as volume status optimized (3) Myelodysplastic syndrome: Plan: -continue f/u w/ hematology -we will give venofer and erythropoeitin stim agent at dialysis but may need to coordinate with heme -if /when she resumes revlimid will need to take it immediately AFTER HD on dialysis days (4) Anemia in ESRD (end-stage renal disease): Plan: -aggressive SUDHA and venofer at HD Plan Case complexity high. Admission and Anticipated Discharge Date Admission Date: March 02, 2024 Subjective some flushing, cough, anxiety w/ uf today and we scaled UF goal to 1.3. sx improved now. seen on hd Review of Systems 2 Review of Systems: All systems reviewed & are unremarkable except as noted in Subjective Physical Exam 2 Constitutional: well developed, well nourished, + frail appearing and cooperative (on RA); no acute distress Eyes: EOM intact bilaterally ENMT: Ears: no external ear abnormality Nose: no external nose abnormality Mouth: + dry oral mucous membranes Neck: no nuchal rigidity Respiratory: normal respiratory effort Auscultation: + diminished lung sounds (anterior exam) Cardiovascular: RRR, no murmur, no edema Gastrointestinal (Abdomen): Inspection/Auscultation: normal bowel sounds P ercussion/Palpation: abdomen soft; abdomen nontender Musculoskeletal: Extremities: strength 5/5 throughout Skin: no rashes, warm and dry Results & Data Vital Signs (Past 12 Hours) Vital Signs Temp Pulse Pulse Pulse Resp BP BP 03/08/24 11:30 78 125/53 L 03/08/24 11:00 78 122/66 03/08/24 10:45 71 118/68 03/08/24 10:30 59 L 107/66 03/08/24 10:24 58 L 104/57 L 03/08/24 10:14 77 131/60 03/08/24 10:00 70 115/60 03/08/24 09:36 69 153/74 H 03/08/24 09:30 36.6 C 69 03/08/24 08:40 72 03/08/24 08:15 72 03/08/24 07:05 36.6 C 72 17 181/72 H 03/08/24 03:00 03/08/24 02:53 36.7 C 65 20 162/72 H Pulse Ox O2 Del Method O2 Del Method 03/08/24 11:30 03/08/24 11:00 03/08/24 10:45 03/08/24 10:30 03/08/24 10:24 03/08/24 10:14 03/08/24 10:00 03/08/24 09:36 03/08/24 09:30 03/08/24 08:40 03/08/24 08:15 03/08/24 07:05 96 Room Air 03/08/24 03:00 Room Air 03/08/24 02:53 95 Room Air Laboratory Results 03/08/24 04:30 03/08/24 04:30 (2) High blood pressure Hypertension type: renovascular hypertension Qualified Code(s): I15.0 - Renovascular hypertension
--- NOTE | 2024-03-08 14:09 | Discharge Summary ---
Date of Service March 08, 2024 Admission HPI Per Admitting Provider 74-year-old female with past med history significant for hypomagnesia, obstructive sleep apnea on CPAP, hypertension, chronic diarrhea, CKD stage IV, myelodysplastic syndrome, anemia of chronic kidney disease, history of nephrolithiasis, history of breast cancer, presents with nausea /vomiting for the last few days and not able to eat comes to ER and found to have JAIRON, hyperkalemia and metabolic acidosis. Patient currently denies any diarrhea. She states she is micturating okay. Denies any fevers. Denies any abdominal pain. No chest pain. Denies shortness of breath. No fevers. No cough. No headache. Vision is okay. No runny nose or sore throat. Current resting comfortably and hemodynamically stable. Alert and oriented x 3. She states is taking chemo pill daily for leukemia but per epic seems for myelodysplastic syndrome. Past medical history. As mentioned above Past surgical history. Left cystoscopy ureteral lithotripsy. Laparoscopic cholecystectomy. Left simple mastectomy. Right open repair of rotator cuff. Social history. No smoking. No alcohol use. No drug use. Family history no family history on file Admission Exam Per Admitting Provider General- Not in distress Head- atraumatic Eyes- PERRL. ENT- oropharynx clear Neck- supple, no JVD. Lungs- clear to auscultation no wheezing or crackles. Heart- regular rhythm; no murmur, no gallop. Abdomen- normal bowel sounds, soft, nontender, no distension. Extremities- no pretibial edema, no erythema seen Neuro- alert, oriented x 3; PERRL, no facial palsy; no dysarthria; motor 5/5 bilaterally; Principal Diagnosis ESRD with uremic symptoms, Hyperkalemia, Hypocalcemia, Metabolic acidosis, Anemia, MDS Discharge Exam General: Lying comfortably in bed, not in distress, on room air HEENT: EOMI, DARSHAN, MMM Chest: Left sided permacath. Clear breath sounds bilaterally, no wheezes or crackles CVS: Regular rate and rhythm, normal heart sounds, no murmur Abdomen: Soft, non tender, not distended, normal bowel sounds Neuro: Awake, alert, oriented, conversing well, non focal Extremities: No edema. RUE ecchymoses Discharge Data Allergies Allergy/AdvReac Type Severity Reaction Status Date / Time ampicillin Allergy Intermediate Rash Verified 03/01/24 20:08 codeine Allergy Intermediate Rash Verified 03/01/24 20:08 Iodinated Contrast Media Allergy Intermediate ITCHY RASH Verified 03/01/24 20:08 Penicillins Allergy Intermediate SWELLING Verified 03/01/24 20:08 red dye Allergy Intermediate Hives Verified 03/01/24 20:08 Consultations 03/02/24 01:05 ED Decision to Admit Stat 03/02/24 03:40 Consult Jewelry Model Maker Routine 03/02/24 07:12 Consult Vascular Surgery Routine 03/02/24 09:01 Consult Nephrology Routine 03/04/24 07:20 Consult Orthopedic Spine Surgery Routine Procedures Performed Operation Date: 03/04/24 08:20 Actual Procedures p Insertion Perm Catheter, Left Internal Jugular Approach, Ultrasound Localization of Left Internal Jugular Vein, Fluoroscopy for Positioning, M oderate Sedation 0842 - 0934(Left) - Leandro Alexander MD Ordered Studies 03/01/24 23:23 CT Abd and Pelvis [CT abd pelvis wo con] Stat 03/02/24 02:15 CT neck soft tissues [CT soft tissue neck wo con] Stat 03/02/24 12:03 US venous doppler UE RT Stat 03/03/24 16:38 MRI Cervical [MR cervical spine wo con] Routine 03/04/24 07:05 EV cvc insrt tunnel wo prt/rug measurer Routine US EV guide vascular access Routine Laboratory Results WBC 13.21 K/ul (4.8-10.8) H 03/08/24 04:30 RBC 3.15 M/uL (4.20-5.40) L 03/08/24 04:30 Hgb 7.8 g/dl (12.0-16.0) L 03/08/24 04:30 Hct 25.7 % (37.0-47.0) L 03/08/24 04:30 MCV 81.6 fL (80.0-100.0) 03/08/24 04:30 MCH 24.8 pg (25.0-34.0) L 03/08/24 04:30 MCHC 30.4 g/dL (32.0-36.0) L 03/08/24 04:30 RDW Std Deviation 66.3 fL (36.4-46.3) H 03/08/24 04:30 RDW Coeff of Tosha 22.5 % (11.5-14.5) H 03/08/24 04:30 Plt Count 88 K/uL (130-400) L 03/08/24 04:30 MPV Cancelled 03/01/24 21:27 Immature Gran % (Auto) 5.6 % 03/02/24 03:55 Neut % (Auto) 65.9 % 03/02/24 03:55 Lymph % (Auto) 12.7 % 03/02/24 03:55 Ballard % (Auto) 14.5 % 03/02/24 03:55 Eos % (Auto) 0.5 % 03/02/24 03:55 Baso % (Auto) 0.8 % 03/02/24 03:55 Neut # (Auto) 4.09 K/uL (1.40-6.50) 03/02/24 03:55 Lymph # (Auto) 0.79 K/uL (1.20-3.40) L 03/02/24 03:55 Ballard # (Auto) 0.90 K/uL (0.11-0.59) H 03/02/24 03:55 Eos # (Auto) 0.03 K/uL (0.00-0.50) 03/02/24 03:55 Baso # (Auto) 0.05 K/uL (0.00-0.20) 03/02/24 03:55 Immature Gran # (Auto) 0.35 K/uL (0.01-0.20) H 03/02/24 03:55 Absolute Nucleated RBC 0.07 K/uL (0.00-0.12) 03/08/24 04:30 Nucleated RBC % (auto) 0.5 % 03/08/24 04:30 Neutrophils % (Manual) Cancelled 03/01/24 21:27 Band Neutrophils % Cancelled 03/01/24 21:27 Lymphocytes % (Manual) Cancelled 03/01/24 21:27 Prolymphocyte % Cancelled 03/01/24 21:27 Reactive Lymphs % (Man) Cancelled 03/01/24 21:27 Monocytes % (Manual) Cancelled 03/01/24 21:27 Eosinophils % (Manual) Cancelled 03/01/24 21:27 Basophils % (Manual) Cancelled 03/01/24 21:27 Metamyelocytes % (Man) Cancelled 03/01/24 21:27 Myelocytes % (Man) Cancelled 03/01/24 21:27 Promyelocytes % (Man) Cancelled 03/01/24 21:27 Blast Cells % (Manual) Cancelled 03/01/24 21:27 Plasma Cell % (Manual) Cancelled 03/01/24 21:27 Other Cells % Cancelled 03/01/24 21:27 Nucleated RBC % Cancelled 03/01/24 21:27 Neutrophils # (Manual) Cancelled 03/01/24 21:27 Band Neutrophils # Cancelled 03/01/24 21:27 Total Absolute Neuts Cancelled 03/01/24 21:27 Lymphocytes # (Manual) Cancelled 03/01/24 21:27 Prolymphocyte # Cancelled 03/01/24 21:27 Reactive Lymphs # Cancelled 03/01/24 21:27 Total Abs Lymphocytes Cancelled 03/01/24 21:27 Monocytes # (Manual) Cancelled 03/01/24 21:27 Eosinophils # (Manual) Cancelled 03/01/24 21:27 Basophils # (Manual) Cancelled 03/01/24 21:27 Metamyelocytes # (Man) Cancelled 03/01/24 21:27 Myelocytes # (Manual) Cancelled 03/01/24 21:27 Promyelocytes # (Man) Cancelled 03/01/24 21:27 Blast Cells # (Man) Cancelled 03/01/24 21:27 Plasma Cell # (Manual) Cancelled 03/01/24 21:27 Other Cells # Cancelled 03/01/24 21:27 Nucleated RBCs # (Man) Cancelled 03/01/24 21:27 Hypersegmented Neuts Cancelled 03/01/24 21:27 Hyposegmented Neuts Cancelled 03/01/24 21:27 Hypogranular Neuts Cancelled 03/01/24 21:27 Large Granular Lymphs Cancelled 03/01/24 21:27 # Lrg Granular Lymphs Cancelled 03/01/24 21:27 Hairy Cells Cancelled 03/01/24 21:27 Smudge Cells Cancelled 03/01/24 21:27 Toxic Granulation Cancelled 03/01/24 21:27 Toxic Vacuolation Cancelled 03/01/24 21:27 Dohle Bodies Cancelled 03/01/24 21:27 Tito Rods Cancelled 03/01/24 21:27 Platelet Estimate Decreased (Normal) L 03/04/24 04:54 Hypogranular Platelets Cancelled 03/01/24 21:27 Giant Platelets Cancelled 03/01/24 21:27 Platelet Satelliting Cancelled 03/01/24 21:27 RBC Morphology Cancelled 03/01/24 21:27 Polychromasia 1+ 03/02/24 03:55 Hypochromasia Cancelled 03/01/24 21:27 Poikilocytosis Cancelled 03/01/24 21:27 Basophilic Stippling Cancelled 03/01/24 21:27 Anisocytosis Present 03/02/24 03:55 Microcytosis Cancelled 03/01/24 21:27 Macrocytosis Cancelled 03/01/24 21:27 Spherocytes Cancelled 03/01/24 21:27 Pappenheimer Bodies Cancelled 03/01/24 21:27 Sickle Cells Cancelled 03/01/24 21:27 Target Cells Cancelled 03/01/24 21:27 Tear Drop Cells 1+ 03/02/24 03:55 Ovalocytes 1+ 03/01/24 21:27 Ovalocytes Cancelled 03/01/24 21:27 Stomatocytes Cancelled 03/01/24 21:27 Campuzano-[place] Bodies Cancelled 03/01/24 21:27 Echinocytes 1+ 03/02/24 03:55 Acanthocytes (Spur) 2+ 03/01/24 21:27 Acanthocytes (Spur) Cancelled 03/01/24 21:27 Rouleaux Cancelled 03/01/24 21:27 RBC Agglutinates Cancelled 03/01/24 21:27 Schistocytes Cancelled 03/01/24 21:27 Sezary Cell Cancelled 03/01/24 21:27 VBG pH 7.13 (7.36-7.41) L 03/02/24 05:33 VBG pCO2 33 mmHg (38-50) L 03/02/24 05:33 VBG pO2 55 mmHg 03/02/24 05:33 VBG HCO3 11 mmol/L 03/02/24 05:33 VBG O2 Saturation 77.4 % 03/02/24 05:33 VBG Base Excess -17.1 mEq/L 03/02/24 05:33 Sodium 131 mmol/L (136-145) L 03/08/24 04:30 Potassium 3.6 mmol/L (3.5-5.1) 03/08/24 04:30 Chloride 97 mmol/L (98-107) L 03/08/24 04:30 Carbon Dioxide 24 mmol/L (21-32) 03/08/24 04:30 Anion Gap 10 (3-11) 03/08/24 04:30 BUN 64 mg/dl (6-23) H 03/08/24 04:30 Creatinine 6.65 mg/dl (0.6-1.2) H* D 03/08/24 04:30 Est Cr Clr Drug Dosing 6.5 ml/min 03/08/24 04:30 Est GFR ( Amer) 6.6 ml/min 03/08/24 04:30 Est GFR (Non-Af Amer) 5.7 ml/min 03/08/24 04:30 BUN/Creatinine Ratio 9.6 (10-20) L 03/08/24 04:30 Glucose 103 mg/dl (70-99(Fasting)) H 03/08/24 04:30 POC Glucose 159 mg/dl (70-99) H 03/07/24 07:48 Estimat Average Glucose 123 mg/dl 03/05/24 06:34 Hemoglobin A1c 5.9 % (4.5-5.6) H 03/05/24 06:34 Lactate 0.6 mmol/L (0.4-2.0) 03/01/24 21:27 Calcium 8.0 mg/dl (8.6-10.3) L 03/08/24 04:30 Ionized Calcium 0.88 mmol/L (1.12-1.32) L 03/06/24 05:43 Phosphorus 3.4 mg/dl (2.5-4.9) D 03/07/24 04:30 Magnesium 1.6 mg/dl (1.7-2.4) L 03/08/24 04:30 Total Bilirubin 0.3 mg/dl (0.2-1.0) 03/01/24 23:38 AST 8 U/L (13-39) L 03/01/24 23:38 ALT 8 U/L (7-52) 03/01/24 23:38 Alkaline Phosphatase 57 U/L (34-104) 03/01/24 23:38 Total Creatine Kinase 108 U/L (26-192) 03/01/24 21:27 Troponin I High Sens 237.4 pg/ml (0-14) H* D 03/02/24 22:30 Total Protein 6.1 gm/dl (6.0-8.3) 03/01/24 23:38 Albumin 3.1 gm/dl (3.4-5.0) L 03/02/24 15:42 Globulin 2.5 gm/dl (2.5-4.0) 03/01/24 23:38 Albumin/Globulin Ratio 1.4 (0.9-2) 03/01/24 23:38 Lipase 490 U/L (11-82) H 03/01/24 21:27 25-OH Vitamin D Total 11.8 ng/ml (30-100) L 03/02/24 03:54 Urine Color Yellow 03/02/24 04:12 Urine Appearance Cloudy (Clear) A 03/02/24 04:12 Urine pH 5.0 (4.5-7.5) 03/02/24 04:12 Ur Specific [place] 1.011 (1.000-1.030) 03/02/24 04:12 Urine Protein 3+ (Negative) H 03/02/24 04:12 Urine Glucose (UA) Trace (Negative) H 03/02/24 04:12 Urine Ketones Negative (Negative) 03/02/24 04:12 Urine Blood Trace (Negative) H 03/02/24 04:12 Urine Nitrite Negative (Negative) 03/02/24 04:12 Urine Bilirubin Negative (Negative) 03/02/24 04:12 Urine Urobilinogen Negative (Negative) 03/02/24 04:12 Ur Leukocyte Esterase Negative (Negative) 03/02/24 04:12 Urine WBC (Auto) 6-10 /hpf (0-5) H 03/02/24 04:12 Urine RBC (Auto) 0-2 /hpf (0-2) 03/02/24 04:12 U Hyaline Cast (Auto) 0-2 /lpf (0-2) 03/02/24 04:12 U Epithel Cells (Auto) 0-2 /hpf (0-2) 03/02/24 04:12 Urine Bacteria (Auto) None Seen (None Seen) 03/02/24 04:12 Ur Random Creatinine 57.9 mg/dl 03/02/24 04:12 Ur Random Sodium 70 mmol/L 03/02/24 04:12 Nasal Screen MRSA (PCR) Negative (Negative) 03/02/24 Unknown Salicylates < 3.0 mg/dl (3.0-30) L 03/02/24 05:22 Urine Opiates Screen Neg (Neg) 03/02/24 04:12 Ur Methadone, Qual Neg (Neg) 03/02/24 04:12 Urine Barbiturates Neg (Neg) 03/02/24 04:12 Ur Phencyclidine (PCP) Neg (Neg) 03/02/24 04:12 U Amphetamin/Meth Scrn Neg (Neg) 03/02/24 04:12 MDMA (Ecstasy) Screen Neg (Neg) 03/02/24 04:12 U Benzodiazepines Scrn Neg (Neg) 03/02/24 04:12 Ur Cocaine Metabolite Neg (Neg) 03/02/24 04:12 U Marijuana (THC) Screen Neg (Neg) 03/02/24 04:12 Hep Bs Antigen NON-REACTIVE (NON-REACTIVE) 03/02/24 05:33 Hep Bs Ag Confirmation TNP 03/02/24 05:33 Hep Bs Antibody, Quant <5 mIU/mL (> OR = 10) L 03/02/24 05:33 Hep B Core IgM Ab NON-REACTIVE (NON-REACTIVE) 03/02/24 15:45 Blood Parasites ID Cancelled 03/01/24 21:27 Blood Type O Positive 03/04/24 17:08 Antibody Screen NEGATIVE 03/04/24 17:08 Crossmatch See Detail 03/04/24 17:08 Impressions Abdomen/Pelvis CT 03/01/24 23:23 Exam(s): CT ABDOMEN + PELVIS Without Contrast EXAM: CT Abdomen and Pelvis Without Intravenous Contrast CLINICAL HISTORY: Reason for exam: intractable N/V, ARF. TECHNIQUE: Axial computed tomography images of the abdomen and pelvis without intravenous contrast. CTDI is 10.65 mGy and DLP is 482.37 mGy-cm. Automated exposure control was utilized for the study. A dose lowering technique was utilized adhering to the principles of ALARA. COMPARISON: No relevant prior studies available. FINDINGS: Lung bases: Unremarkable. No mass. No consolidation. ABDOMEN: Liver: Unremarkable. Gallbladder and bile ducts: Cholecystectomy. No ductal dilation. Pancreas: Unremarkable. No ductal dilation. Spleen: Unremarkable. No splenomegaly. Adrenals: Unremarkable. No mass. Kidneys and ureters: Unremarkable. No hydronephrosis or nephrolithiasis. Stomach and bowel: Diverticulosis, without acute diverticulitis. No small bowel obstruction. No free intraperitoneal air. PELVIS: Appendix: Normal appendix. Bladder: Unremarkable. No stones. Reproductive: RIGHT ovarian cyst measures 2.4 x 2.0 cm. ABDOMEN and PELVIS: Intraperitoneal space: Unremarkable. No free air. No significant fluid collection. Bones/joints: Degenerative changes of the spine. No acute fracture. No dislocation. Soft tissues: Unremarkable. Vasculature: Atherosclerotic changes of the aorta. No abdominal aortic aneurysm. Lymph nodes: Unremarkable. No enlarged lymph nodes. IMPRESSION: 1. No hydronephrosis or nephrolithiasis. 2. Normal appendix. 3. Cholecystectomy. 4. RIGHT ovarian cyst measures 2.4 x 2.0 cm. 5. Diverticulosis, without acute diverticulitis. No small bowel obstruction. No free intraperitoneal air. Electronically signed by: Jordin Perez MD 03/02/24 00:29 AM Soft Tissue Neck CT 03/02/24 02:15 Exam(s): CT NECK Without Contrast EXAM: CT Neck Without Intravenous Contrast CLINICAL HISTORY: Reason for exam: nausea and gagging. any mass.. TECHNIQUE: Axial computed tomography images of the neck without intravenous contrast. CTDI is 12.12 mGy and DLP is 361.6 mGy-cm. Automated exposure control was utilized for the study. A dose lowering technique was utilized adhering to the principles of ALARA. COMPARISON: No relevant prior studies available. FINDINGS: Oropharynx: Unremarkable. No significant tonsillar enlargement. Hypopharynx: Unremarkable. Larynx: Unremarkable. Normal epiglottis. Trachea: Unremarkable. Retropharyngeal space: Unremarkable. Submandibular/parotid glands: Unremarkable. Glands are normal in size. Thyroid: Small to tiny bilateral thyroid nodules. No enlarged or calcified nodules. Bones/joints: No acute fracture. There is a critical spinal canal stenosis at C4. Soft tissues: Unremarkable. Vasculature: No acute findings. Lymph nodes: Unremarkable. No lymphadenopathy. Lung apices: Unremarkable as visualized. IMPRESSION: No evidence of acute cervical soft tissue pathology. Critical spinal canal stenosis at C4 with impingement of the ventral cord, which can cause swallowing abnormalities. Recommend MRI of the cervical spine to evaluate for myelopathy. Electronically signed by: Sammie Adams MD 03/02/24 05:04 AM Chest X-Ray 03/02/24 09:19 XR chest 1V portable HISTORY: line placement COMPARISON: None. FINDINGS: No pneumothorax. No pleural effusions. The cardiac silhouette is mildly enlarged. No evidence for pulmonary edema. The left jugular central venous catheter which terminates at the superior cavoatrial junction. Postoperative changes within the right shoulder. Question right lung densities are likely due to the overlapping ribs. Otherwise, lungs are clear. IMPRESSION: A left jugular central venous catheter terminates at the superior cavoatrial junction. No pneumothorax. ACT 112: Negative or not required by law. Electronically signed by: Milton Gardner M.D. 03/02/2024 9:53 AM Venous Doppler Study 03/02/24 12:03 RIGHT INTERNAL JUGULAR VEIN VENOUS DOPPLER HISTORY: R INTERNAL JUGULAR VEIN occlusion COMPARISON STUDY: None. FINDINGS: Nonocclusive thrombus identified within the right internal jugular vein. This measures approximately 3 cm in length. This is age indeterminate but has a linear appearance and may represent chronic rather than acute thrombus. IMPRESSION: Nonocclusive thrombus within the right internal jugular vein as described above. ACT 112: Negative or not required by law. Electronically signed by: Milotn Gardner M.D. 03/02/2024 12:53 PM Cervical Spine MRI 03/03/24 16:38 MRI OF THE CERVICAL SPINE WITHOUT IV CONTRAST CLINICAL HISTORY: Dysphagia. COMPARISON STUDY: CT of the neck dated 03/02/2024. TECHNIQUE: MRI of the cervical spine is performed utilizing various T1 and T2- weighted sequences in the axial and sagittal planes. IV contrast was not administered for this examination. FINDINGS: Cervical spine: Vertebral body height and alignment is maintained throughout the cervical spine. There is straightening of the cervical lordosis. The atlantodental articulation is maintained noting productive degenerative change. The spinous processes appear intact. No destructive bony process is seen. Intervertebral discs: Disc desiccation and mild loss of height is seen throughout the cervical spine. Spinal cord: The cervical cord is normal in morphology and signal intensity. C2-C3: There is a central posterior disc protrusion which minimally effaces the ventral subarachnoid space. Mild facet arthropathy is of no consequence. The neural foramina are patent. C3-C4: A small central posterior disc protrusion which minimally effaces the ventral subarachnoid space. Facet arthropathy is of no consequence. The neural foramina are patent. C4: A subligamentous disc extrusion, likely from the C4-C5 level effaces the ventral cord at this level. This is best seen on sagittal image #9, and measures up to 1.7 cm in craniocaudal length and 0.5 cm in AP diameter. The minimum AP canal diameter measures up to 8 mm. C4-C5: A central posterior disc protrusion minimally effaces the ventral cord. As noted above, there is likely a subligamentous superior disc extrusion at this level. Facet arthropathy is of no consequence. The neural foramina are patent. C5-C6: A posterior disc osteophyte complex abuts the ventral cord. Facet arthropathy is of no consequence. The neural foramina are patent. C6-C7: A posterior disc osteophyte complex eccentric to the left abuts the ventral cord. Facet arthropathy is of no consequence. The neural foramina are patent. C7-T1: Unremarkable. Soft tissues: The prevertebral and paraspinous soft tissues are normal as imaged. Brain parenchyma: The visualized brain parenchyma at the skull base is normal as visualized noting age-related involutional change. IMPRESSION: 1. No acute bony abnormality is seen involving the cervical spine. 2. There is a large subligamentous disc extrusion posterior to C4 (likely from the C4-C5 level) which effaces the ventral cord. 3. The cervical cord is normal in morphology and signal intensity. 4. Milder spondylotic change at additional levels as above. See discussion for detailed level by level analysis. Dictated: 03/03/2024 6:51 PM Transcribed: 03/03/2024 7:14 PM Donis [id number] [email or web address] [id number] Electronically signed by: Velasquez Flores M.D. 03/03/2024 7:15 PM Hospital Course (1) CKD (chronic kidney disease) stage 5, GFR less than 15 ml/min: (2) ESRD on hemodialysis: (3) High blood pressure: (4) Hypocalcemia: (5) Anemia: (6) Myelodysplastic syndrome: (7) Hyperkalemia: Plan 74-year-old female with past med history significant for hypomagnesia, obstructive sleep apnea on CPAP, hypertension, chronic diarrhea, CKD stage IV, myelodysplastic syndrome, anemia of chronic kidney disease, history of nephrolithiasis, history of breast cancer, presents with nausea /vomiting for the last few days and not able to eat comes to ER and found to have JAIRON, hyperkalemia and metabolic acidosis. With her uremic symptoms, she had progressed from her CKD 5 to ESRD requiring HD. She underwent emergent HD with improvement in her labs and symptoms. Permacath placed and had HD from that 03/05. OP HD already set up and to resume from 03/08 at 4:30 am but family was unable to keep that appointment, hence discharge was cancelled yesterday. She had her HD today here. Spoke with CM and HD timing changed to 5:30 am and that works better for the patient. Next HD to start 03/10 at 5:30 am. Required multiple iv iron and iv procrit for anemia of CKD, and also required 1 U of PRBC. Has appt with Dr Patterson for tomorrow. She is comfortable and stable for discharge home. I did review the discharge medications with nephrology and they will fine tune her medications including the supplements as OP. I did ask patient to take her revlimid after HD. ESRD with metabolic abnormalities/hypocalcemia/hyperphosphatemia/hyperkalemia- Now on HD since this admission - presented with uremic symptoms and significant lab abnormalities - S/p emergent hemodialysis with improvement in symptoms and labs. - S/p permacath placed by vascular - Had multiple HD here last one today. [facility] Pena. - Given IV Venofer and Epogen per nephrology. Hypocalcemia-improving. Now on PhosLo and Tums per nephrology. Status post multiple IV calcium gluconate. Hypomagnesemia- repleted. continue supplementation Hypokalemia-repleted. Anion gap metabolic acidosis-due to CKD. resolved with bicarb drip and dialysis. Anemia- Hb dropped to 6.8 and s/p 1 U PRBC on 03/05, Hb now at 7.7. S/p multiple doses iv venofer and epocrit. Per nephro, given her MDS and ESRD, it will be difficult to raise her Hb. Nonocclusive thrombus identified in right internal jugular vein, likely chronic, 3 cm linear thrombus- incidental finding. Spoke with vascular surgery and Dr Patterson- no need for anticoagulation. Dysphagia-CT soft tissue neck and MRI reviewed. Seen by ortho spine- recommended OP follow up in 2 weeks. History of myelodysplastic syndrome- Discussed with Dr Patterson- continue revlimid Sleep apnea- On CPAP nightly Mild elevation troponin-in setting of CKD. Doubt ACS. History of breast cancer diagnosed in 1989 treated with chemotherapy and surgery Hypertension-on amlodipine, labetalol, lisinopril. Further management per nephro. Total Time Total Time Spent Total Time Spent (In Minutes): 35 Discharge Plan Discharge Items Patient Disposition: Home - Self-Care Reason For Visit: JAIRON, HYPERLAEMIA, METABOLIC ACIDOSIS Discharge Diagnosis: ESRD with uremic symptoms, Hyperkalemia, Hypocalcemia, Metabolic acidosis, Anemia, MDS Activity: Resume your previous activity Non-emergency contact: Primary Care Provider, Geodetic Surveyor Technologist and Oncologist Call non-emergency contact if: you have any medication questions and your symptoms worsen Follow-up/Referrals: Chio Simental MD [Primary Care Provider] - (Date & Time 03/11/2024 9:00 AM Provider Chio Simental MD Department General Internal Medicine [facility] ) Diet: Dialysis Renal Addtl Attending Provider Instructions: Please take the medications as prescribed Outpatient hemodialysis scheduled for tomorrow Follow up with ortho spine doctor, nephrology, oncology and family doctor Pending Studies at Discharge: No Stand-Alone Forms: My Cuídate, Smoking Cessation Medications and DC Order Prescriptions: New lisinopril 20 mg Tablet 20 mg PO BID 30 Days Qty: 60 0RF calcium acetate(phosphat bind) 667 mg Capsule 1,334 mg PO TIDM 30 Days Qty: 60 0RF cholecalciferol (vitamin D3) 25 mcg (1,000 unit) Capsule 50 mcg PO DAILY Qty: 30 0RF calcitriol 0.25 mcg Capsule 0.5 mcg PO QAM Qty: 30 0RF Mag 64 64 mg Tablet,Delayed Release (Dr/Ec) 64 mg PO BID Qty: 20 0RF calcium carbonate [Tums] 200 mg calcium (500 mg) Tablet,Chewable 1,500 mg PO BID Qty: 60 0RF lenalidomide [Revlimid] 10 mg Capsule 2.5 mg PO DAILY Qty: 10 0RF Rx Instructions: Take after hemodialysis on HD days Continued labetalol 100 mg Tablet 100 mg PO BID fluticasone propionate 50 mcg/actuation spray,suspension 2 spray INTRANASAL DAILY loratadine [Claritin] 10 mg Tablet 10 mg PO HS amlodipine 10 mg tablet 10 mg PO QAM Discontinued cholecalciferol (vitamin D3) [Vitamin D3] 25 mcg (1,000 unit) Capsule 25 mcg PO DAILY Discharge Orders: Discharge Order (Routine); Ordered 03/08/24 Ordered By: Arvind Rios/Other Patient Handouts: Coping with Kidney Failure, Anemia and Kidney Disease, Kidney Disease Anemia Iron, Kidney Disease Potassium in Diet, Kidney Disease Reducing Potassium, Kidney Disease Calcium Phosphorus, Kidney Disease Protein Choices, Kidney Disease: Eating Less Sodium, Kidney Disease Limiting Sodium, Hypertension and Kidney Disease, Hypertension and Kidney Disease Admission Data Admit Date/Time: 03/02/24 02:15 Attending Provider: Arvind Strange Admit Provider: Cristo [facility] Primary Care Provider: Chio Simental Other Providers: Onur Padron; Cristo Aguirre; Leandro Alexander; Onur Cai Other Interventions: Discharge Summary Assessment (RN) Last Done: 03/07/24 15:53
== END 2024-03-08 17:45 | disposition home or self-care (01) | DRG 673 ==
LOC: ED 17:27 → 1E 03-02 02:15 → 4W 03-04 18:00